=== PATIENT | female | born 1935 | race Caucasian/White ===

== ENCOUNTER → 2019-06-25 | Outpatient (CLI) | payer MEDICARE ==
--- NOTE | 2019-06-25 18:10 | MR ---
EXAMINATION TYPE: MR lumbar spine wo con DATE OF EXAM: 06/25/2019 COMPARISON: None HISTORY: Left foot drop x 2 mos CONTRAST: 0 mL intravenous Gadavist. TECHNIQUE: Multiplanar, multisequence images of the lumbar spine were acquired. FINDINGS: L5-S1: There is a moderately large central disc herniation with mild anterior thecal sac compression. No displacement of the exiting nerve roots is evident. No AP spinal canal stenosis is present. There is loss of disc height of this disc level. Facet hypertrophy has mild left posterior lateral thecal sac compression. There is moderate right and mild left foraminal narrowing. L4-L5: There is a left paracentral disc herniation with [id number] anterior thecal sac compress ion. There is loss of disc height of this level. Facet hypertrophy and ligamentum flavum laxity has p osterior lateral thecal sac compression. Some lateral canal stenosis is present. No AP spinal canal s tenosis is present. Moderate right and moderate to severe left foraminal stenosis is present. L3-L4: There is a grade 1 spondylolisthesis of L3 anteriorly on L4. Disc uncovering is present. This is moderate intrathecal sac flattening. Facet hypertrophy and ligamentum flavum laxity has significan t posterior lateral thecal sac compression. Lateral canal stenosis is present. No AP spinal canal mima nosis is present. Mild bilateral foraminal narrowing is present L2-L3: No focal disc herniation or significant disc bulge is evident. No spinal canal stenosis or pritesh ral foraminal stenosis present. Facet hypertrophy has ligamentum flavum laxity with posterior lateral thecal sac compression. Mild posterior lateral thecal sac compression is present. L1-L2: No significant disc bulge or disc herniation. No spinal canal stenosis. No foraminal stenosi s. T12-L1: No significant disc bulge or disc herniation. No spinal canal stenosis. No foraminal stenos is. Cord terminates at the L1 level. IMPRESSION: 1. Facet hypertrophy and ligamentum flavum laxity contributing to lateral canal stenosis present L4-5 and L3-4. 2. Foraminal stenosis is present L3-4 through L5-S1 discussed above. 3. Left paracentral disc bulge at L4-5 with moderate intrathecal sac compression.
== END | disposition home or self-care (01) ==
LOC: RADMRIMAIN 15:51
PROVIDERS: ATTEND Internal Medicine
DX: M48.061 Spinal stenosis, lumbar region without neurogenic claudication (principal); M48.07 Spinal stenosis, lumbosacral region; M51.26 Other intervertebral disc displacement, lumbar region; M46.96 Unspecified inflammatory spondylopathy, lumbar region; M53.86 Other specified dorsopathies, lumbar region
CPT/HCPCS: 72148

== ENCOUNTER 2020-12-23 11:12 | Inpatient (IN) | payer MEDICARE ==
--- NOTE | 2020-12-23 11:30 | ED ---
General Adult HPI - General Source: patient, RN notes reviewed Mode of arrival: ambulatory Limitations: no limitations <Ed Vivas - Last Filed: 12/23/20 11:28> <Jessenia Norris - Last Filed: 12/23/20 16:58> - General Stated complaint: CHLOÉ Time Seen by Provider: 12/23/20 11:28 - History of Present Illness Initial comments: 85-year-old female presents emergency Department from outpatient urgent care for cough congestion. Patient has been getting worse over the last 3 weeks with cough congestion. Patient does have underlying COPD supposed be on oxygen. Patient's daughter states that she looks about her usual self. Patient denies any chest pain no reported fevers. Patient's cough is congested, wet sounding, no history of CHF. (Ed Vivas) Ed Vivas PA-c saw patient for advance triage purposes. Agree with documented HPI. In addition patient reports sputum that ranges in color from clear to green. Reports substernal chest pain, denies radiation to her back. Does report increased shortness of breath especially with activity. Denies any lower extremity swelling or pain. No history of smoking. Wears 2L oxygen at home for history of COPD and pulmonary fibrosis. Did receive both Covid vaccines and influenza vaccine. (Jessenia Norris) - Related Data Home Medications Medication Instructions Recorded Confirmed Aspirin 81 mg PO W/SUPPER 12/23/20 12/23/20 Atorvastatin [Lipitor] 20 mg PO W/SUPPER 12/23/20 12/23/20 Cholecalciferol [Vitamin D3 (25 25 mcg PO W/SUPPER 12/23/20 12/23/20 Mcg = 1000 Iu)] Multivit with Calcium,Iron,Min 1 tab PO W/SUPPER 12/23/20 12/23/20 [Women's Multivitamin] Verapamil HCl [Verapamil ER] 120 mg PO W/SUPPER 12/23/20 12/23/20 lisinopriL [Zestril] 20 mg PO W/SUPPER 12/23/20 12/23/20 Allergies Allergy/AdvReac Type Severity Reaction Status Date / Time codeine Allergy Unknown Verified 12/23/20 12:29 Review of Systems ROS Other: All systems not noted in ROS Statement are negative. <Ed Vivas - Last Filed: 12/23/20 11:28> ROS Other: All systems not noted in ROS Statement are negative. <Jessenia Norris M - Last Filed: 12/23/20 16:58> ROS Statement: Those systems with pertinent positive or pertinent negative responses have been documented in the HPI. Past Medical History Past Medical History: COPD, Hyperlipidemia, Hypertension Additional Past Medical History / Comment(s): pulmonary fibrosis History of Any Multi-Drug Resistant Organisms: None Reported Past Surgical History: Bowel Resection, Section, Cholecystectomy Past Psychological History: No Psychological Hx Reported Smoking Status: Never smoker Past Alcohol Use History: None Reported Past Drug Use History: None Reported <Ed Vivas Chato - Last Filed: 12/23/20 11:28> General Exam Limitations: no limitations <Ed Vivas Chato - Last Filed: 12/23/20 11:28> General appearance: alert, in no apparent distress Eye exam: Present: normal appearance, PERRL, EOMI. Absent: scleral icterus, conjunctival injection, periorbital swelling ENT exam: Present: normal exam, normal oropharynx, mucous membranes moist Respiratory exam: Present: other (Crackles throughout the posterior lung wild). Absent: normal lung sounds bilaterally, respiratory distress, wheezes, rales, rhonchi, stridor Cardiovascular Exam: Present: regular rate, normal rhythm, normal heart sounds. Absent: systolic murmur, diastolic murmur, rubs, gallop, clicks GI/Abdominal exam: Present: soft, normal bowel sounds. Absent: distended, te nderness, guarding, rebound, rigid Neurological exam: Present: alert, oriented X3, CN II-XII intact Psychiatric exam: Present: normal affect, normal mood Skin exam: Present: warm, dry, intact, normal color. Absent: rash <Jesseina Norris M - Last Filed: 12/23/20 16:58> Course Vital Signs 12/23/20 11:24 Temperature 98.4 F Pulse Rate 72 Respiratory 22 Rate Blood Pressure 165/71 O2 Sat by Pulse 93 L Oximetry EKG Findings - EKG Comments: EKG Findings:: EKG obtained at 1458 shows sinus rhythm with PACs, ventricular rate is 74, VT interval 176, QRS duration 78, QT 388, QTC 430. No evidence of ST elevation or depression. <Jessenia Norris M - Last Filed: 12/23/20 16:58> Medical Decision Making - Lab Data Result diagrams: 12/23/20 12:47 12/23/20 12:47 - Radiology Data Radiology results: report reviewed, image reviewed <Jessenia Norris - Last Filed: 12/23/20 16:58> - Medical Decision Making 85 year-old female patient presents with 3 week history of productive cough and increasing shortness of breath. Physical examination did reveal crackles in the posterior lung wild. She was 92% on room air upon arrival. She is oxygen dependent at 2 L at home. Has history of COPD and pulmonary fibrosis. Chest x- ray did show evidence for bilateral infiltrates with possible cavitary lesion. Did do CT chest with contrast which showed multiple pulmonary nodules concerning for atypical pneumonia, TB, or neoplasm. She was started on Zosyn and vancomycin. Blood cultures obtained. Consults to pulmonology infectious disease. I did discuss all findings and results with the patient. She'll be admitted for further evaluation and monitoring. She verbalizes understanding and agrees with this plan. Case discussed with my attending Dr. Graham. (Jessenia Norris) - Lab Data Lab Results 12/23/20 12/23/20 12/23/20 Range/Units 12:47 12:47 12:47 WBC 20.2 H (3.8-10.6) k/uL RBC 5.19 (3.80-5.40) m/uL Hgb 15.2 (11.4-16.0) gm/dL Hct 46.1 H (34.0-46.0) % MCV 89.0 (80.0-100.0) fL MCH 29.3 (25.0-35.0) pg MCHC 32.9 (31.0-37.0) g/dL RDW 14.2 (11.5-15.5) % Plt Count 473 H (150-450) k/uL MPV 8.0 Neutrophils % 85 % Lymphocytes % 7 % Monocytes % 6 % Eosinophils % 1 % Basophils % 1 % Neutrophils # 17.1 H (1.3-7.7) k/uL Lymphocytes # 1.4 (1.0-4.8) k/uL Monocytes # 1.2 H (0-1.0) k/uL Eosinophils # 0.2 (0-0.7) k/uL Basophils # 0.1 (0-0.2) k/uL PT 11.1 (9.0-12.0) sec INR 1.0 (<1.2) APTT 24.5 (22.0-30.0) sec Sodium 138 (137-145) mmol/L Potassium 4.3 (3.5-5.1) mmol/L Chloride 96 L (98-107) mmol/L Carbon Dioxide 36 H (22-30) mmol/L Anion Gap 6 mmol/L BUN 14 (7-17) mg/dL Creatinine 0.50 L (0.52-1.04) mg/dL Est GFR (CKD-EPI)AfAm >90 (>60 ml/min/1.73 sqM) Est GFR (CKD-EPI)NonAf 88 (>60 ml/min/1.73 sqM) Glucose 98 (74-99) mg/dL Plasma Lactic Acid Stevenson (0.7-2.0) mmol/L Calcium 10.4 H (8.4-10.2) mg/dL Total Bilirubin 1.1 (0.2-1.3) mg/dL AST 34 (14-36) U/L ALT 18 (4-34) U/L Alkaline Phosphatase 110 (38-126) U/L Troponin I (0.000-0.034) ng/mL Total Protein 7.6 (6.3-8.2) g/dL Albumin 4.3 (3.5-5.0) g/dL Coronavirus (PCR) (Not Detectd) 12/23/20 12/23/20 12/23/20 Range/Units 12:47 12:47 14:50 WBC (3.8-10.6) k/uL RBC (3.80-5.40) m/uL Hgb (11.4-16.0) gm/dL Hct (34.0-46.0) % MCV (80.0-100.0) fL MCH (25.0-35.0) pg MCHC (31.0-37.0) g/dL RDW (11.5-15.5) % Plt Count (150-450) k/uL MPV Neutrophils % % Lymphocytes % % Monocytes % % Eosinophils % % Basophils % % Neutrophils # (1.3-7.7) k/uL Lymphocytes # (1.0-4.8) k/uL Monocytes # (0-1.0) k/uL Eosinophils # (0-0.7) k/uL Basophils # (0-0.2) k/uL PT (9.0-12.0) sec INR (<1.2) APTT (22.0-30.0) sec Sodium (137-145) mmol/L Potassium (3.5-5.1) mmol/L Chloride (98-107) mmol/L Carbon Dioxide (22-30) mmol/L Anion Gap mmol/L BUN (7-17) mg/dL Creatinine (0.52-1.04) mg/dL Est GFR (CKD-EPI)AfAm (>60 ml/min/1.73 sqM) Est GFR (CKD-EPI)NonAf (>60 ml/min/1.73 sqM) Glucose (74-99) mg/dL Plasma Lactic Acid Stevenson 1.6 (0.7-2.0) mmol/L Calcium (8.4-10.2) mg/dL Total Bilirubin (0.2-1.3) mg/dL AST (14-36) U/L ALT (4-34) U/L Alkaline Phosphatase (38-126) U/L Troponin I 0.020 (0.000-0.034) ng/mL Total Protein (6.3-8.2) g/dL Albumin (3.5-5.0) g/dL Coronavirus (PCR) Not Detected (Not Detectd) - Radiology Data Chest x-ray showed patchy bilateral airspace opacities are most suggestive of an infectious versus inflammatory process, such as pneumonia. There is a thick- walled cavity at the right suprahilar region measuring 2.17 years. Abscess or neoplasm is not excluded. Tiny right pleural effusion. COPD. CT chest with contrast was obtained. Report was reviewed in its entirety. Impression by Dr. Arreaga shows centrilobular lung nodules can be seen in such entities such as tuberculosis, nontobacco's is mycobacterial infection, Asperg illus Daniel pneumonia, differential includes cephalic granulomatosis with polyangiitis, bronchoalveolar carcinoma, metastatic disease not excluded. (Jessenia Norris) Disposition <Ed Vivas - Last Filed: 12/23/20 11:28> Decision to Admit Reason: Admit from EC Decision Date: 12/23/20 Decision Time: 15:53 <Jessenia Norris - Last Filed: 12/23/20 16:58> Clinical Impression: Atypical pneumonia, Lung mass Disposition: ADMITTED IP TO THIS HOSP Condition: Serious Referrals: Faviola Kwong MD [Primary Care Provider] - 1-2 days
--- NOTE | 2020-12-23 11:56 | XR ---
EXAMINATION TYPE: XR chest 2V DATE OF EXAM: 12/23/2020 COMPARISON: NONE HISTORY: 85-year-old female with productive cough, congestion, history of COPD TECHNIQUE: Frontal and lateral views of the chest are obtained. FINDINGS: Heart size is within normal limits. Atherosclerotic aortic knob. There are patchy airspace opacities throughout the lungs, predominantly at the mid to lower lungs. There is a 2.1 cm thick-wal led nodular cavity at the right upper lobe. A developing abscess or mass is not excluded. A CT of the chest may be helpful for further evaluation. COPD. Tiny right pleural effusion. No pneumothorax. Deg enerative changes of the thoracic spine. IMPRESSION: 1. Patchy bilateral airspace opacities are most suggestive of infectious/inflammatory process, such a s pneumonia. There is a thick-walled cavity at the right suprahilar region measuring 2.1 cm. An absce ss or neoplasm is not excluded. A CT of the chest would be helpful for further evaluation. 2. Tiny right pleural effusion. 3. COPD.
[2020-12-23] MEDS ORDERED: PIPERACILLIN-TAZOBACTAM 3.375 GM in SODIUM CHLORIDE 0.9% 100 ML IVPB STA (12:18)
[2020-12-23] MEDS ORDERED: RX INFO: IV CONTRAST WAS GIVEN 1 EACH MISC MISCELLANE PRN (12:20)
[2020-12-23 13:06] LABS: Basophils # (A) 0.1 k/uL (0-0.2); Basophils % (A) 1 %; Eosinophils # (A) 0.2 k/uL (0-0.7); Eosinophils % (A) 1 %; HCT 46.1 % (34.0-46.0); HGB 15.2 gm/dL (11.4-16.0); Lymphocytes # (A) 1.4 k/uL (1.0-4.8); Lymphocytes % (A) 7 %; MCH 29.3 pg (25.0-35.0); MCHC 32.9 g/dL (31.0-37.0); Monocytes # (A) 1.2 k/uL (0-1.0); Monocytes % (A) 6 %; Neutrophils # (A) 17.1 k/uL (1.3-7.7); Neutrophils % (A) 85 %; Platelet Count 473 k/uL (150-450); RBC 5.19 m/uL (3.80-5.40); RDW 14.2 % (11.5-15.5); WBC 20.2 k/uL (3.8-10.6)
[2020-12-23 13:21] LABS: ALT 18 U/L (4-34); AST 34 U/L (14-36); African American GFR (CKD) >90 (>60 ml/min/1.73 sqM); Albumin 4.3 g/dL (3.5-5.0); Alkaline Phosphatase 110 U/L (38-126); Anion Gap 6 mmol/L; Blood Urea Nitrogen 14 mg/dL (7-17); Calcium 10.4 mg/dL (8.4-10.2); Carbon Dioxide 36 mmol/L (22-30); Chloride 96 mmol/L (98-107); Glucose 98 mg/dL (74-99); Non-African American GFR(CKD) 88 (>60 ml/min/1.73 sqM); Potassium 4.3 mmol/L (3.5-5.1); Sodium 138 mmol/L (137-145); Total Bilirubin 1.1 mg/dL (0.2-1.3); Total Protein 7.6 g/dL (6.3-8.2)
[2020-12-23 13:30] LABS: Partial Thromboplastin Time 24.5 sec (22.0-30.0); Prothrombin Time 11.1 sec (9.0-12.0)
--- NOTE | 2020-12-23 14:39 | CT ---
EXAMINATION TYPE: CT chest w con DATE OF EXAM: 12/23/2020 COMPARISON: Chest x-ray 12/23/2020 HISTORY: abnormal chest xray CT DLP: 158 mGycm Automated exposure control for dose reduction was used. CONTRAST: CT scan of the chest is performed with IV Contrast, patient injected with 100 mL of Isovue 300. FINDINGS: LUNGS: There are cavitary soft tissue masses in the right lower lobe, superior segment lesion measure s 2.2 cm, slightly more inferiorly there is a focus measuring 1.7 cm, suggestion of bronchiectasis co ursing to these nodules, smaller nodules are present in the right upper lobe, axial image #11, left u pper lobe, axial image #13 and 12. Scattered areas of bronchiectasis are present in the upper lobes, right middle lobe and lingula. There is no pleural or pericardial effusion. There is some consolidati on in the right middle lobe and lingula, scattered areas of nodularity are present bilaterally within the lungs which is subcentimeter in size. MEDIASTINUM: Aorticopulmonary window node, prevascular nodes are enlarged . Borderline hilar adenopat hy present on the right. AORTA: Ascending aorta at the upper limit of normal measuring 3.9 cm. OTHER: Spleen so some associated calcification at the superior margin, there are some scattered calc ifications present, a cleaved appearance of the spleen is present, there may been remote trauma, saurav elate. IMPRESSION: Centrilobular lung nodules can be seen in such entities as tuberculosis and nontuberculo us mycobacterial infection, Aspergillus bronchopneumonia, Differential includes is a is in cephalic g ranulomatosis with polyangiitis, bronchoalveolar carcinoma, metastatic disease not excluded, consider pulmonary consult
[2020-12-23] MEDS: SODIUM CHLORIDE 0.9% 500 ML 500 ML IV SCH ×2 (14:49→17:59)
[2020-12-23] MEDS ORDERED: VANCOMYCIN IV PER PHARMACY 1 EACH MISC MISCELLANE PRN (15:32)
[2020-12-23] MEDS ORDERED: NALOXONE 0.4 MG/ML 1 ML VIAL IV PRN (15:44)
[2020-12-23] MEDS ORDERED: VANCOMYCIN 1,000 MG in SODIUM CHLORIDE 0.9% 250 ML IVPB ONE (16:30)
[2020-12-23] MEDS ORDERED: IPRATROPIUM-ALBUTEROL 3 ML NEB INHALATION STA (16:47)
[2020-12-23] MEDS ORDERED: ACETAMINOPHEN TAB 325 MG TAB PO PRN (17:24)
[2020-12-23] MEDS ORDERED: bisacodyL 5 MG TABLET.DR PO PRN (17:24)
[2020-12-23] MEDS ORDERED: MELATONIN 3 MG TABLET PO PRN (17:24)
--- NOTE | 2020-12-23 17:31 | P.HPIM ---
History of Present Illness H&P Date: 12/23/20 Chief Complaint: cough Patient is an 85-year-old female with pulmonary fibrosis and chronic hypoxic respiratory failure on 2 L nasal cannula, hypertension, and dyslipidemia who presented to the ER due to 3 weeks of cough and progressive shortness of breath. She was seen by the nurse practitioner at her primary care office who sent her to the hospital. In the ER she underwent an extensive evaluation. On arrival her vital signs were within normal limits. Initial chest x-ray showed possible infectious or inflammatory process with abscess or neoplasm not excluded. She subsequently underwent a CTA of the chest which showed central lobular nodules in such entities as tuberculosis, not tuberculosis Mycobacterium, Aspergillus, granulomatous polyangiitis, bronchial alveolar carcinoma or metastatic disease. She was started on vancomycin and Zosyn. Arrangements were made for admission. Patient seen and examined at bedside with daughter present. She reports that fo r the last 3 weeks she has had a cough which initially was productive of yellow- green sputum then became clear and it is now productive of green sputum. She has had progressive shortness of breath which is much worse than her baseline. She also reports over all generalized malaise and fatigue. For the last few days she has had decreased appetite. She denies any fevers or chills. She has had no recent travel. She denies any history of prior tuberculosis infection. She has never been incarcerated. She was diagnosed with pulmonary fibrosis approximately one year ago after high- resolution CT. 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 She has continued using her oxygen 24/7 as well as a nebulizer. She does not require any assistive devices. Pertinent positives and negatives as discussed in HPI, a complete review of systems was performed and all other systems are negative. General: Ill-appearing, no distress, appears at stated age Derm: warm, dry Head: atraumatic, normocephalic, symmetric Eyes: EOMI, no lid lag, anicteric sclera, pupils equal round reactive to light ENT: Nose and ears atraumatic, + thrush, no pharyngeal erythema Neck: No thyromegaly, no cervical lymphadenopathy, trachea midline, supple Mouth: no lip lesion, mucus membranes moist Cardiovascular: S1S2 reg, no murmur, positive posterior tibial pulse bilateral, no edema, capillary refill less than 2 seconds Lungs: Velcro crackles bilateral bilateral, no ronchi, no rales, no wheeze, no accessory muscle use Abdominal: soft, nontender to palpation, no guarding, no appreciable organomegaly, normal bowel sounds Ext: no gross muscle atrophy, muscle strength muscle strength 5 out of 5 in all 4 extremities, no contractures Neuro: CN II-XI grossly intact, light touch intact all 4 extremities, finger to nose within normal limits, Psych: Alert, oriented, appropriate affect Assessment/plan: Pneumonia, concerns for mycobacterial versus neoplasm Chronic hypoxic respiratory failure -Suspicious for Mycobacterium avium intracellulare with history of pulmonary fibrosis, less likely metastatic disease with history of cholangiocarcinoma requiring bowel resection at age 58, and less likely tuberculosis -Airborn precautions -AFB, QuantiFERON Gold -Vancomycin, Zosyn -ID and pulmonary consultations - check procalcitonin - echo - await blood culture Pulmonary fibrosis without exacerbation -Resume home budesonide -When necessary albuterol Thrush -Nystatin swish and swallow Hypertension, accelerated on arrival -Likely secondary to stress -Resume verapamil, lisinopril Dyslipidemia -Statin The patient is admitted with an anticipated greater than 2 midnight stay for evaluation of pneumonia. Surrogate decision-maker: Daughter CODE STATUS: DO NOT RESUSCITATE DVT prophylaxis: Lovenox Discussed with: Patient, nursing, ED physician, daughter Anticipated discharge date: 3-[address]: Home with home health A total of 65 minutes was spent on the care of this complex patient more than 50% of the time was spent in counseling and care coordination. Past Medical History Past Medical History: COPD, Hyperlipidemia, Hypertension Additional Past Medical History / Comment(s): pulmonary fibrosis History of Any Multi-Drug Resistant Organisms: None Reported Past Surgical History: Bowel Resection, Section, Cholecystectomy Past Psychological History: No Psychological Hx Reported Smoking Status: Never smoker Past Alcohol Use History: None Reported Past Drug Use History: None Reported Medications and Allergies Home Medications Medication Instructions Recorded Confirmed Type Aspirin 81 mg PO W/SUPPER 12/23/20 12/23/20 History Atorvastatin [Lipitor] 20 mg PO W/SUPPER 12/23/20 12/23/20 History Cholecalciferol [Vitamin D3 (25 25 mcg PO W/SUPPER 12/23/20 12/23/20 History Mcg = 1000 Iu)] Multivit with Calcium,Iron,Min 1 tab PO W/SUPPER 12/23/20 12/23/20 History [Women's Multivitamin] Verapamil HCl [Verapamil ER] 120 mg PO W/SUPPER 12/23/20 12/23/20 History lisinopriL [Zestril] 20 mg PO W/SUPPER 12/23/20 12/23/20 History Allergies Allergy/AdvReac Type Severity Reaction Status Date / Time codeine Allergy Unknown Verified 12/23/20 12:29 Physical Exam Osteopathic Statement: *. No significant issues noted on an osteopathic structural exam other than those noted in the History and Physical/Consult. Vitals: Vital Signs Temp Pulse Resp BP Pulse Ox 12/23/20 11:24 98.4 F 72 22 165/71 93 L Intake and Output 12/23/20 12/23/20 12/23/20 06:59 14:59 22:59 Other: Weight 46.266 kg Results CBC & Chem 7: 12/23/20 12:47 12/23/20 12:47 Labs: Abnormal Lab Results - Last 24 Hours (Table) 12/23/20 12/23/20 Range/Units 12:47 12:47 WBC 20.2 H (3.8-10.6) k/uL Hct 46.1 H (34.0-46.0) % Plt Count 473 H (150-450) k/uL Neutrophils # 17.1 H (1.3-7.7) k/uL Monocytes # 1.2 H (0-1.0) k/uL Chloride 96 L (98-107) mmol/L Carbon Dioxide 36 H (22-30) mmol/L Creatinine 0.50 L (0.52-1.04) mg/dL Calcium 10.4 H (8.4-10.2) mg/dL
[2020-12-23] MEDS: lisinopriL 20 MG TAB PO SCH (17:58)
[2020-12-23] MEDS: CHOLECALCIFEROL 25 MCG (1000 IU) TABLET PO SCH (17:58)
[2020-12-23] MEDS: ATORVASTATIN 20 MG TAB PO SCH (17:58)
[2020-12-23] MEDS: SODIUM CHLORIDE 0.9% 1,000 ML IV SCH (17:59)
[2020-12-23] MEDS: VERAPAMIL SR 120 MG TABLET.ER PO SCH (18:02)
[2020-12-23] MEDS: NYSTATIN 100,000 UNIT/ML SUSP 500,000 UNIT/5 ML CUP PO SCH (18:02)
[2020-12-23] MEDS ORDERED: PIPERACILLIN-TAZOBACTAM 3.375 GM in SODIUM CHLORIDE 0.9% 100 ML IVPB SCH (20:00)
[2020-12-23] MEDS: IPRATROPIUM-ALBUTEROL 3 ML NEB INHALATION SCH (21:04)
[2020-12-23] MEDS: MULTIVITAMINS, THERA 1 EACH TAB PO SCH (23:04)
[2020-12-24] MEDS: IPRATROPIUM-ALBUTEROL 3 ML NEB INHALATION SCH ×6 (00:16→20:13)
[2020-12-24] MEDS ORDERED: VANCOMYCIN 750 MG in SODIUM CHLORIDE 0.9% 250 ML IVPB SCH (06:00)
[2020-12-24 06:40] LABS: ALT 15 U/L (4-34); AST 29 U/L (14-36); African American GFR (CKD) >90 (>60 ml/min/1.73 sqM); Alkaline Phosphatase 81 U/L (38-126); Anion Gap 3 mmol/L; Blood Urea Nitrogen 11 mg/dL (7-17); Calcium 8.9 mg/dL (8.4-10.2); Carbon Dioxide 34 mmol/L (22-30); Chloride 101 mmol/L (98-107); Globulin 2.9 g/dL; Glucose 91 mg/dL (74-99); Magnesium 1.7 mg/dL (1.6-2.3); Non-African American GFR(CKD) 86 (>60 ml/min/1.73 sqM); Potassium 3.9 mmol/L (3.5-5.1); Sodium 138 mmol/L (137-145); Total Bilirubin 0.9 mg/dL (0.2-1.3); Total Protein 5.9 g/dL (6.3-8.2)
[2020-12-24] MEDS: NYSTATIN 100,000 UNIT/ML SUSP 500,000 UNIT/5 ML CUP PO SCH ×4 (08:54→22:24)
[2020-12-24] MEDS: PIPERACILLIN-TAZOBACTAM 3.375 GM in SODIUM CHLORIDE 0.9% 100 ML IVPB SCH ×2 (08:55→18:00)
[2020-12-24 09:21] LABS: HCT 41.8 % (37.2-46.3); MCH 28.9 pg (27.0-32.0); MCHC 31.1 g/dL (32.0-37.0); MCV 92.9 fL (80.0-97.0); Mean Platelet Volume 10.8 fL (9.5-12.2); Platelet Count 449 X 10*3/uL (140-440); RDW 14.6 % (11.5-14.5); WBC 17.31 X 10*3/uL (4.50-10.00)
--- NOTE | 2020-12-24 12:41 | P.CNPUL ---
History of Present Illness Consult date: 12/24/20 Requesting physician: Tara Benitez Reason for consult: abnormal CXR/CT Chief complaint: Shortness of breath, cough, congestion History of present illness: This is a pleasant 85-year-old female patient who follows with Dr. Kwong as her primary care provider. She has a history of hypertension, hyperlipidemia, vitamin D deficiency, pulmonary fibrosis and is on home oxygen. She is a [employer] nonsmoker. She presented to the emergency room yesterday with complaints of increasing shortness of breath cough and congestion. She was referred there from an outpatient urgent care center. She has had a productive sputum of yellowish green phlegm. Occasional blood-tinged. No fever or chills. She states she had lost about 30 pounds last year. Weight is currently staying the same. Chest x-ray revealed patchy bilateral airspace opacities. There is a thick walled cavity in the right suprahilar region measuring 2.1 cm. Abscess or neoplasm not excluded. Tiny right pleural effusion. Computed tomography scan of the chest revealed centrilobular lung nodules can be seen in such entities as tuberculosis and nontender tuberculosis mycobacterial infection, Aspergillus, bronchopneumonia, granulomatosis with polyangiitis, bronchioloalveolar carcinoma. White count 17.3. Hemoglobin 13.0. Platelets 449. Sodium 138. Potassium 3.9. Bicarb 34. Creatinine 0.54. Glucose 91. Pro-calcitonin 0.09. [place] virus not detected. She is seen today in consultation on [place] [facility] [place] currently sitting up in bed. Awake and alert in no acute distress. Maintaining O2 saturation in the 90s on 2 L/m per nasal cannula. She does have a loose congested cough. She's been afebrile. Hemodynamically stable. She's been initiated on bronchodilators, vancomycin and Zosyn. 0.9 normal saline at 75 ML's per hour. Review of Systems REVIEW OF SYSTEMS: CONSTITUTIONAL: Denies any recent significant weight loss or weight gain. EYES: Denies change in vision. EARS, NOSE, MOUTH, THROAT: Denies headaches, denies sore throat. CARDIOVASCULAR: Denies chest pain, palpitations or syncopal episodes. RESPIRATORY: Positive for shortness of breath, cough, congestion, scant hemoptysis. GASTROINTESTINAL: Denies change in appetite, denies abdominal pain GENITOURINARY: Denies hematuria, denies infections. MUSKULOSKELETAL: Denies pain, denies swelling. INTEGUMENTARY: Denies rash, denies eczema. NEUROLOGICAL: Denies recent memory loss, no recent seizure activity. PSYCHIATRIC: Denies anxiety, denies depression. HEMATOLOGIC/LYMPHATIC: Denies anemia, denies enlarged lymph nodes. Past Medical History Past Medical History: COPD, Hyperlipidemia, Hypertension Additional Past Medical History / Comment(s): pulmonary fibrosis History of Any Multi-Drug Resistant Organisms: None Reported Past Surgical History: Bowel Resection, Section, Cholecystectomy Past Psychological History: No Psychological Hx Reported Smoking Status: Never smoker Past Alcohol Use History: None Reported Past Drug Use History: None Reported Medications and Allergies Home Medications Medication Instructions Recorded Confirmed Type Aspirin 81 mg PO W/SUPPER 12/23/20 12/23/20 History Atorvastatin [Lipitor] 20 mg PO W/SUPPER 12/23/20 12/23/20 History Cholecalciferol [Vitamin D3 (25 25 mcg PO W/SUPPER 12/23/20 12/23/20 History Mcg = 1000 Iu)] Multivit with Calcium,Iron,Min 1 tab PO W/SUPPER 12/23/20 12/23/20 History [Women's Multivitamin] Verapamil HCl [Verapamil ER] 120 mg PO W/SUPPER 12/23/20 12/23/20 History lisinopriL [Zestril] 20 mg PO W/SUPPER 12/23/20 12/23/20 History Allergies Allergy/AdvReac Type Severity Reaction Status Date / Time codeine Allergy Unknown Verified 12/23/20 12:29 Physical Exam Vitals: Vital Signs Temp Pulse Pulse Resp BP BP Pulse Ox 12/24/20 08:08 98.2 F 71 18 158/68 93 L 12/24/20 07:43 70 13 12/24/20 02:30 98.6 F 70 13 170/77 93 L 12/24/20 01:03 98.5 F 65 18 156/79 95 12/23/20 20:51 70 18 145/49 99 12/23/20 18:06 70 18 150/70 98 12/23/20 17:40 68 12/23/20 17:27 68 Intake and Output 12/23/20 12/24/20 12/24/20 22:59 06:59 14:59 Other: # Voids 1 1 Weight 46.266 kg GENERAL EXAM: Alert, very pleasant 85-year-old female patient, on room air, fairly comfortable in no apparent distress. HEAD: Normocephalic. EYES: Normal reaction of pupils, equal size. NOSE: Clear with pink turbinates. THROAT: No erythema or exudates. NECK: No masses, no JVD. CHEST: No chest wall deformity. LUNGS: Equal air entry with crackles in the posterior bases, bilateral rhonchi. CVS: S1 and S2 normal with no audible murmur, regular rhythm. ABDOMEN: No hepatosplenomegaly, normal bowel sounds, no guarding or rigidity. SPINE: No scoliosis or deformity SKIN: No rashes CENTRAL NERVOUS SYSTEM: No focal deficits, tone is normal in all 4 extremities. EXTREMITIES: There is no peripheral edema. No clubbing, no cyanosis. Peripheral pulses are intact. Results - Laboratory Findings CBC and BMP: 12/24/20 05:53 12/24/20 05:53 PT/INR, D-dimer PT 11.1 sec (9.0-12.0) 12/23/20 12:47 INR 1.0 (<1.2) 12/23/20 12:47 Abnormal lab findings: Abnormal Labs 12/23/20 12/23/20 12/24/20 12:47 12:47 05:53 WBC 20.2 H 17.31 H Hct 46.1 H MCHC 31.1 L RDW 14.6 H Plt Count 473 H 449 H Neutrophils # 17.1 H Monocytes # 1.2 H Chloride 96 L Carbon Dioxide 36 H Creatinine 0.50 L Calcium 10.4 H Total Protein Albumin 12/24/20 05:53 WBC Hct MCHC RDW Plt Count Neutrophils # Monocytes # Chloride Carbon Dioxide 34 H Creatinine Calcium Total Protein 5.9 L Albumin 3.0 L - Diagnostic Findings Chest x-ray: image reviewed CT scan - chest: image reviewed Assessment and Plan Assessment: 1 Acute hypoxemic respiratory failure secondary to centrilobular lung nodules with cavitary soft tissue masses bilaterally. Suspect atypical mycobacterial infection versus Aspergillus bronchopneumonia, granulomatosis with polyangiitis, bronchoalveolar carcinoma. Pro-calcitonin 0.09. [place] virus not detected. 2 Leukocytosis secondary to above 3 History of pulmonary fibrosis on home oxygen 4 History of weight loss approximately 30 pounds last year 5 Hypertension 6 Hyperlipidemia 7 Lifelong nonsmoker Plan: The patient was seen and evaluated by Dr. Glasgow Chest x-ray, CAT scan, labs reviewed Continue vancomycin, Zosyn, bronchodilators We'll plan for bronchoscopy with BAL, possible biopsies in the a.m. We will continue to follow and make further recommendations based on her clinical status I, the cosigning physician, performed a history & physical examination of the patient. Lungs sounds with crackles in posterior bases, scattered rhonchi. Maintaining good O2 saturations in the 90s on room air. I discussed the assessment and plan of care with my nurse practitioner, Makayla David. I attest to the above consultation as dictated by her.
--- NOTE | 2020-12-24 15:07 | CONS ---
CONSULTATION DATE OF SERVICE: 12/24/2020. REASON FOR CONSULTATION: Pneumonia. HISTORY OF PRESENT ILLNESS: The patient is an 85-year-old female with a past medical history significant for COPD, pulmonary fibrosis, 2 L home O2, presented to [facility] yesterday morning for evaluation of increasing shortness of breath, cough and congestion that has been getting worse for the last 3 weeks. The patient denies having any URI symptoms. Denies having any high-grade fever or chills. No headache. No chest pain. Main complaint has been shortness of breath on minimal exertion even at rest. The patient also has a cough. Initially productive yellow green sputum. is clear and now has been mostly green sputum. No hemoptysis. No pleuritic chest pain. Also generalized weakness and malaise. With these symptoms, the patient was evaluated by the ER physician. On arrival to the ER, patient was afebrile. No fever recorded subsequently. The patient did have O2 sats 93% on 2 L nasal cannula. Did have a white count of 20,000 with left shift. Creatinine was normal. Liver enzymes are normal. [place] PCR was negative. The patient did have a chest x-ray followed by CT of the chest that was read as centrilobular lung nodules can be seen and TB aspergillus bronchopneumonia. The patient was started on vancomycin and Zosyn and has been admitted to the hospital. Infectious disease was consulted for further management of antibiotic therapy. REVIEW OF SYSTEMS: Positive points have been mentioned in HPI. Rest of systems negative. PAST MEDICAL HISTORY: COPD, hypertension, hyperlipidemia, pulmonary fibrosis. PAST SURGICAL HISTORY: Bowel resection, , cholecystectomy. SOCIAL HISTORY: No history of smoking, drinking or drug use. FAMILY HISTORY: No pertinent findings noticed. ALLERGIES: CODEINE. MEDICATIONS: The patient is currently on Tylenol, DuoNeb, Lipitor, Dulcolax, Zestril, melatonin, vancomycin, Pharmacy to dose, Zosyn, nystatin swish and swallow, Verapamil. PHYSICAL EXAMINATION: Blood pressure 158/68 with pulse 70, temperature 98.2. She is 93% on 2 L nasal cannula. General description is an elderly female lying in bed in no distress. No tachypnea or accessory muscles of respiration use. HEENT: Examination shows no pallor or scleral icterus. Oral mucous membrane is dry. NECK: Trachea central. No thyromegaly. LUNGS unlabored breathing with decreased intensity of breath sounds. No wheeze. HEART: S1, S2. Regular rate and rhythm. ABDOMEN: Soft, no tenderness. No guarding or rigidity. EXTREMITIES are no edema of the feet. SKIN: No rash or mass palpable. NEUROLOGICAL: Patient is awake, alert, oriented times three. Mood and affect normal. LABS: Hemoglobin is 13.5, white count 17.31. BUN of 11, creatinine 0.54. CT report mentioned above. DIAGNOSTIC IMPRESSION AND PLAN: Patient admitted to the hospital with increasing shortness of breath, cough, congestion in this patient who did have evidence of a multiple nodules with concern for possible infection versus noninfectious etiology. PLAN: 1. Waiting for the bronchoscopy and deep cultures. 2. We will check pulmonary tuberculosis. 3. Keep the patient on Zosyn. However discontinue vancomycin to decrease risk of nephrotoxicity. 4. We will follow on clinical condition and culture to further adjust medication if needed. Thank you for this consultation, we will follow this patient along with you. MMODL / IJN: [id number] /
--- NOTE | 2020-12-24 17:30 | P.PN ---
Subjective Progress Note Date: 12/24/20 Principal diagnosis: cough Patient is an 85-year-old female with pulmonary fibrosis and chronic hypoxic respiratory failure on 2 L nasal cannula, hypertension, and dyslipidemia who presented to the ER due to 3 weeks of cough and progressive shortness of breath. She was seen by the nurse practitioner at her primary care office who sent her to the hospital. In the ER she underwent an extensive evaluation. On arrival her vital signs were within normal limits. Initial chest x-ray showed possible infectious or inflammatory process with abscess or neoplasm not excluded. She subsequently underwent a CTA of the chest which showed central lobular nodules in such entities as tuberculosis, not tuberculosis Mycobacterium, Aspergillus, granulomatous polyangiitis, bronchial alveolar carcinoma or metastatic disease. She was started on vancomycin and Zosyn. Arrangements were made for admission. Procalcitonin and COVID negative. She was seen by pulmonary who plans for bronchoscopy. Patient seen and examined at bedside. She denies any improvement in her shortness of breath or cough. She denies any chest pain. She denies any nausea or vomiting. General: non toxic, no distress, appears at stated age Derm: warm, dry Head: atraumatic, normocephalic, symmetric Eyes: EOMI, no lid lag, anicteric sclera Mouth: no lip lesion, mucus membranes moist, + thrush Cardiovascular: S1S2 reg, no murmur, positive posterior tibial pulse bilateral, Lungs: Coarse breath sounds bilateral , no accessory muscle use Abdominal: soft, nontender to palpation, no guarding, no appreciable organomegaly Ext: no gross muscle atrophy, no edema, no contractures Neuro: CN II-XI grossly intact, no focal neuro deficits Psych: Alert, oriented, appropriate affect Central lobular lung nodules concerns, Chronic hypoxic respiratory failure -Suspicious for Mycobacterium avium intracellulare with history of pulmonary fibrosis, less likely metastatic disease with history of cholangiocarcinoma requiring bowel resection at age 58, and less likely tuberculosis - unlikley bacterial wiht procalcitonin 0.09, but conitnue vanco and zosyn until after bronch -Airborn precautions -AFB, QuantiFERON Gold pening -Pulm recs apprecaited: bronch in AM -ID recs appreciated - echo pending - await blood culture Pulmonary fibrosis without exacerbation -Resume home budesonide -When necessary albuterol Thrush -Nystatin swish and swallow Hypertension, accelerated on arrival -Likely secondary to stress -Resume verapamil, lisinopril Dyslipidemia -Statin CODE STATUS: DO NOT RESUSCITATE DVT prophylaxis: Lovenox Discussed with: Patient, nursing, pulmonary Anticipated discharge date: 3-[address]: Home with home health A total of 35 minutes was spent on the care of this complex patient more than 50% of the time was spent in counseling and care coordination. Objective - Vital Signs Vital signs: Vital Signs Temp 98.7 F 12/24/20 14:00 Pulse 78 12/24/20 16:21 Resp 17 12/24/20 14:00 BP 159/69 12/24/20 14:00 Pulse Ox 95 12/24/20 14:00 Intake & Output 12/23/20 12/24/20 12/24/20 18:59 06:59 18:59 Weight 46.266 kg 46.266 kg Other: # Voids 1 1 - Labs CBC & Chem 7: 12/24/20 05:53 12/24/20 05:53 Labs: Abnormal Lab Results - Last 24 Hours (Table) 12/24/20 12/24/20 Range/Units 05:53 05:53 WBC 17.31 H (4.50-10.00) X 10*3/uL MCHC 31.1 L (32.0-37.0) g/dL RDW 14.6 H (11.5-14.5) % Plt Count 449 H (140-440) X 10*3/uL Carbon Dioxide 34 H (22-30) mmol/L Total Protein 5.9 L (6.3-8.2) g/dL Albumin 3.0 L (3.5-5.0) g/dL Microbiology - Last 24 Hours (Table) 12/23/20 12:47 Blood Culture - Preliminary Blood No Growth after 24 hours 12/23/20 12:47 Blood Culture - Preliminary Blood No Growth after 24 hours
[2020-12-24] MEDS: CHOLECALCIFEROL 25 MCG (1000 IU) TABLET PO SCH (18:01)
[2020-12-24] MEDS: lisinopriL 20 MG TAB PO SCH (18:01)
[2020-12-24] MEDS: ATORVASTATIN 20 MG TAB PO SCH (18:01)
[2020-12-24] MEDS: MULTIVITAMINS, THERA 1 EACH TAB PO SCH (18:01)
[2020-12-24] MEDS: VERAPAMIL SR 120 MG TABLET.ER PO SCH (22:03)
[2020-12-24] MEDS: SODIUM CHLORIDE 0.9% 1,000 ML IV SCH ×2 (22:24→22:45)
[2020-12-25] MEDS: PIPERACILLIN-TAZOBACTAM 3.375 GM in SODIUM CHLORIDE 0.9% 100 ML IVPB SCH ×3 (00:20→17:43)
[2020-12-25] MEDS: IPRATROPIUM-ALBUTEROL 3 ML NEB INHALATION SCH ×7 (03:27→20:29)
[2020-12-25] MEDS ORDERED: VANCOMYCIN TROUGH DUE 1 EACH MISC MISCELLANE ONE (05:00)
[2020-12-25 09:06] LABS: HCT 43.5 % (34.0-46.0); HGB 14.3 gm/dL (11.4-16.0); MCH 29.8 pg (25.0-35.0); MCHC 32.9 g/dL (31.0-37.0); MCV 90.7 fL (80.0-100.0); Mean Platelet Volume 7.9; Platelet Count 445 k/uL (150-450); RDW 14.1 % (11.5-15.5); WBC 13.7 k/uL (3.8-10.6)
[2020-12-25 09:25] LABS: African American GFR (CKD) >90 (>60 ml/min/1.73 sqM); Anion Gap 2 mmol/L; Blood Urea Nitrogen 11 mg/dL (7-17); Carbon Dioxide 35 mmol/L (22-30); Chloride 103 mmol/L (98-107); Glucose 98 mg/dL (74-99); Non-African American GFR(CKD) 88 (>60 ml/min/1.73 sqM); Potassium 4.1 mmol/L (3.5-5.1); Sodium 140 mmol/L (137-145)
[2020-12-25 09:28] LABS: T4/T8 Ratio (CD4:CD8) 2.6 (1.0-3.7)
[2020-12-25] MEDS ORDERED: ALBUTEROL NEBULIZED 2.5 MG/3 ML INHALATION PRN (09:31)
[2020-12-25 09:37] LABS: Glucose,Whole Blood 94 mg/dL (75-99)
--- NOTE | 2020-12-25 09:39 | P.PN ---
Subjective Progress Note Date: 12/25/20 Principal diagnosis: cough Patient is an 85-year-old female with pulmonary fibrosis and chronic hypoxic respiratory failure on 2 L nasal cannula, hypertension, and dyslipidemia who presented to the ER due to 3 weeks of cough and progressive shortness of breath. She was seen by the nurse practitioner at her primary care office who sent her to the hospital. In the ER she underwent an extensive evaluation. On arrival her vital signs were within normal limits. Initial chest x-ray showed possible infectious or inflammatory process with abscess or neoplasm not excluded. She subsequently underwent a CTA of the chest which showed central lobular nodules in such entities as tuberculosis, not tuberculosis Mycobacterium, Aspergillus, granulomatous polyangiitis, bronchial alveolar carcinoma or metastatic disease. She was started on vancomycin and Zosyn. Arrangements were made for admission. Procalcitonin and COVID negative. She was seen by pulmonary who plans for bronchoscopy today. Patient seen and examined at bedside. Feeling tried, weak and dry this morning. She is feeling tight and wheezy. She has a headache and feels like she is having a hard time thinking. General: non toxic, no distress, appears at stated age Derm: warm, dry Head: atraumatic, normocephalic, symmetric Eyes: EOMI, no lid lag, anicteric sclera Mouth: no lip lesion, mucus membranes moist, + thrush Cardiovascular: S1S2 reg, no murmur, positive posterior tibial pulse bilateral, Lungs: Coarse breath sounds bilateral , no accessory muscle use Abdominal: soft, nontender to palpation, no guarding, no appreciable organomegaly Ext: no gross muscle atrophy, no edema, no contractures Neuro: CN II-XI grossly intact, no focal neuro deficits Psych: Alert, oriented, appropriate affect Central lobular lung nodules concerns, Chronic hypoxic respiratory failure -Suspicious for Mycobacterium avium intracellulare with history of pulmonary fibrosis, less likely metastatic disease with history of cholangiocarcinoma requiring bowel resection at age 58, and less likely tuberculosis - unlikely bacterial wiht procalcitonin 0.09, but continue vanco and zosyn until after bronch -Airborn precautions -AFB, QuantiFERON Gold pending -Pulm recs appreciated: bronch in AM -ID recs appreciated - echo results pending - Blood cultures negative to date Pulmonary fibrosis without exacerbation - budesonide, duoneb -When necessary albuterol Thrush -Nystatin swish and swallow Hypertension, accelerated on arrival -Likely secondary to stress -Resume verapamil, lisinopril Dyslipidemia -Statin CODE STATUS: DO NOT RESUSCITATE DVT prophylaxis: Lovenox Discussed with: Patient, nursing, pulmonary Anticipated discharge date: 3-[address]: Home with home health A total of 35 minutes was spent on the care of this complex patient more than 50% of the time was spent in counseling and care coordination. Objective - Vital Signs Vital signs: Vital Signs Temp 97.9 F 12/25/20 08:00 Pulse 69 12/25/20 08:00 Resp 16 12/25/20 08:00 BP 168/88 12/25/20 08:00 Pulse Ox 92 L 12/25/20 08:00 Intake & Output 12/24/20 12/25/20 12/25/20 18:59 06:59 18:59 Intake Total 750 Balance 750 Intake: Intake, IV Titration 350 Amount Piperacillin-Tazobactam 3 100 .375 gm In Sodium Chloride 0.9% 100 ml @ 25 mls/hr IVPB Q8H YUAN Rx#: [id number] Sodium Chloride 0.9% 1, 250 000 ml @ 75 mls/hr IV . [id number] YUAN Rx#:[id number] Oral 400 Other: # Voids 4 - Labs CBC & Chem 7: 12/25/20 08:51 12/25/20 08:51 Labs: Abnormal Lab Results - Last 24 Hours (Table) 12/25/20 12/25/20 Range/Units 08:51 08:51 WBC 13.7 H (3.8-10.6) k/uL Carbon Dioxide 35 H (22-30) mmol/L Creatinine 0.50 L (0.52-1.04) mg/dL Microbiology - Last 24 Hours (Table) 12/23/20 12:47 Blood Culture - Preliminary Blood No Growth after 24 hours 12/23/20 12:47 Blood Culture - Preliminary Blood No Growth after 24 hours
[2020-12-25] MEDS: NYSTATIN 100,000 UNIT/ML SUSP 500,000 UNIT/5 ML CUP PO SCH ×4 (09:51→22:23)
[2020-12-25] MEDS: SODIUM CHLORIDE 0.9% 1,000 ML IV SCH (09:52)
--- NOTE | 2020-12-25 11:02 | ECHOF ---
Referral Reason:dyspnea MEASUREMENTS -------- HEIGHT: 152.4 cm WEIGHT: 46.3 kg BP: 170/77 RVIDd: 3.3 cm (< 3.3) IVSd: 1.5 cm (0.6 - 1.1) LVIDd: 3.0 cm (3.9 - 5.3) LVPWd: 1.6 cm (0.6 - 1.1) IVSs: 1.8 cm LVIDs: 1.8 cm LVPWs: 1.8 cm LAESV Index (A-L): 26.18 ml/m Ao Diam: 3.2 cm (2.0 - 3.7) AV Cusp: 2.1 cm (1.5 - 2.6) MV EXCURSION: 12.360 mm (> 18.000) MV EF SLOPE: 44 mm/s (70 - 150) EPSS: 0.3 cm MV E Curtis: 1.12 m/s MV DecT: 231 ms MV A Curtis: 1.25 m/s MV E/A Ratio: 0.90 AR PHT: 532 ms RAP: 5.00 mmHg RVSP: 42.09 mmHg FINDINGS -------- Sinus rhythm. This was a technically adequate study. The left ventricular size is normal. There is moderate concentric left ventricular hypertrophy. O verall left ventricular systolic function is normal with, an EF between 55 - 60 %. The right ventricle is mildly enlarged. Normal LA size by volume 22+/-6 ml/m2. The right atrium is mildly enlarged. Interatrial and interventricular septum intact. The aortic valve is trileaflet and appears structurally normal. Trace to mild aortic regurgitation. There is no evidence of aortic stenosis. There is trace mitral regurgitation. [id number] tricuspid regurgitation present. There is mild to moderate pulmonary hypertension. The right ventricular systolic pressure, as measured by Doppler, is 42.09mmHg. There is no pulmonic regurgitation present. The aortic root size is normal. Normal inferior vena cava with normal inspiratory collapse consistent with estimated right atrial pre ssure of 5 mmHg. There is no pericardial effusion. CONCLUSIONS -------- 1. The left ventricular size is normal. 2. There is moderate concentric left ventricular hypertrophy. 3. Overall left ventricular systolic function is normal with, an EF between 55 - 60 %. 4. The right ventricle is mildly enlarged. 5. The right atrium is mildly enlarged. 6. Trace to mild aortic regurgitation. 7. There is trace mitral regurgitation. 8. [id number] tricuspid regurgitation present. 9. There is mild to moderate pulmonary hypertension. 10. The right ventricular systolic pressure, as measured by Doppler, is 42.09mmHg. TELE TECH: Christy Luis RDCS
--- NOTE | 2020-12-25 11:36 | P.PN ---
Subjective Progress Note Date: 12/25/20 Principal diagnosis: Acute on chronic hypoxic respiratory failure secondary to central lobular lung nodules with cavitary soft tissue masses bilaterally This is a pleasant 85-year-old female patient who follows with Dr. Kwong as her primary care provider. She has a history of hypertension, hyperlipidemia, vitamin D deficiency, pulmonary fibrosis and is on home oxygen. She is a lifelong nonsmoker. She presented to the emergency room yesterday with complaints of increasing shortness of breath cough and congestion. She was referred there from an outpatient urgent care center. She has had a productive sputum of yellowish green phlegm. Occasional blood-tinged. No fever or chills. She states she had lost about 30 pounds last year. Weight is currently staying the same. Chest x-ray revealed patchy bilateral airspace opacities. There is a thick walled cavity in the right suprahilar region measuring 2.1 cm. Abscess or neoplasm not excluded. Tiny right pleural effusion. Computed tomography scan of the chest revealed centrilobular lung nodules can be seen in such entities as tuberculosis and nontender tuberculosis mycobacterial infection, Aspergillus, br onchopneumonia, granulomatosis with polyangiitis, bronchioloalveolar carcinoma. White count 17.3. Hemoglobin 13.0. Platelets 449. Sodium 138. Potassium 3.9. Bicarb 34. Creatinine 0.54. Glucose 91. Pro-calcitonin 0.09. [place] virus not detected. She is seen today in consultation [place] [facility] [place] currently sitting up in bed. Awake and alert in no acute distress. Maintaining O2 saturation in the 90s on 2 L/m per nasal cannula. She does have a loose congested cough. She's been afebrile. Hemodynamically stable. She's been initiated on bronchodilators, vancomycin and Zosyn. 0.9 normal saline at 75 ML's per hour. The patient is seen today 12/25/2020 in follow-up on the regular medical floor. She is currently sitting up in bed. Awake and alert in no acute distress. Maintaining O2 saturations in the low 90s on 2 L/m per nasal cannula. Afebrile. Continues with a loose nonproductive cough. Blood cultures reveal no growth to date. White count 13.7. Hemoglobin 14.3. Platelet count 445. Sodium 140. Potassium 4.1. Creatinine 0.50. Remains on Zosyn, albuterol. Plan is for bronchoscopy with BAL today. Objective - Vital Signs Vital signs: Vital Signs Temp 97.9 F 12/25/20 08:00 Pulse 72 12/25/20 10:00 Resp 16 12/25/20 08:00 BP 168/88 12/25/20 08:00 Pulse Ox 92 L 12/25/20 08:00 Intake & Output 12/24/20 12/25/20 12/25/20 18:59 06:59 18:59 Intake Total 750 Balance 750 Intake: Intake, IV Titration 350 Amount Piperacillin-Tazobactam 3 100 .375 gm In Sodium Chloride 0.9% 100 ml @ 25 mls/hr IVPB Q8H YUAN Rx#: [id number] Sodium Chloride 0.9% 1, 250 000 ml @ 75 mls/hr IV . [id number] YUAN Rx#:[id number] Oral 400 Other: # Voids 4 - Exam GENERAL EXAM: Alert, very pleasant 85-year-old female patient, on 2 L nasal cannula, fairly comfortable in no apparent distress. HEAD: Normocephalic. EYES: Normal reaction of pupils, equal size. NOSE: Clear with pink turbinates. THROAT: No erythema or exudates. NECK: No masses, no JVD. CHEST: No chest wall deformity. LUNGS: Equal air entry with crackles in the posterior bases, bilateral rhonchi. CVS: S1 and S2 normal with no audible murmur, regular rhythm. ABDOMEN: No hepatosplenomegaly, normal bowel sounds, no guarding or rigidity. SPINE: No scoliosis or deformity SKIN: No rashes CENTRAL NERVOUS SYSTEM: No focal deficits, tone is normal in all 4 extremities. EXTREMITIES: There is no peripheral edema. No clubbing, no cyanosis. Peripheral pulses are intact. - Labs CBC & Chem 7: 12/25/20 08:51 12/25/20 08:51 Labs: Abnormal Lab Results - Last 24 Hours (Table) 12/25/20 12/25/20 Range/Units 08:51 08:51 WBC 13.7 H (3.8-10.6) k/uL Carbon Dioxide 35 H (22-30) mmol/L Creatinine 0.50 L (0.52-1.04) mg/dL Microbiology - Last 24 Hours (Table) 12/23/20 12:47 Blood Culture - Preliminary Blood No Growth after 24 hours 12/23/20 12:47 Blood Culture - Preliminary Blood No Growth after 24 hours Assessment and Plan Assessment: 1 Acute on chronic hypoxic respiratory failure secondary to centrilobular lung nodules with cavitary soft tissue masses bilaterally. Suspect atypical mycobacterial infection versus Aspergillus bronchopneumonia, granulomatosis with polyangiitis, bronchoalveolar carcinoma. Pro-calcitonin 0.09. [place] virus not detected. 2 Leukocytosis secondary to above him a improving currently 13.7 3 History of pulmonary fibrosis on home oxygen 4 History of weight loss approximately 30 pounds last year 5 Hypertension 6 Hyperlipidemia 7 Lifelong nonsmoker Plan: The patient was seen and evaluated by Dr. Pee Gloria, bronchodilators Bronchoscopy with BAL, possible biopsies today We will continue to follow I, the cosigning physician, performed a history & physical examination of the patient. Lungs sounds with crackles in posterior bases, scattered rhonchi. Maintaining good O2 saturations in the 90s on 2 L/m per nasal cannula. I discussed the assessment and plan of care with my nurse practitioner, Makayla costa. I attest to the above note as dictated by her.
--- NOTE | 2020-12-25 12:23 | CDI ---
Documentation Clarification Form Date: 12/25/2020 11:54:31 AM From: Rashmi Giron RN CCDS Admit Date: 12/23/2020 04:18:00 PM Patient Name: Margo Galicia Visit Number: [id number] Discharge Date: ATTENTION: The Clinical Documentation Specialists (CDI) and [facility] Coding Staff appreciate your assistance in clarifying documentation. Please respond to the clarification below the line at the bottom and electronically sign. The CDI & [facility] Coding staff will review the response and follow-up if needed. Please note: Queries are made part of the Legal Health Record. If you have any questions, please contact the author of this message via ITS. Dr. Tara Benitez Conflicting documentation has been found in the medical record. As attending physician, please provide clarification. Chronic Hypoxic Respiratory Failure, H&P 12/23, and Internal Medicine PN 12/24 & 12/25. Acute Hypoxemic Respiratory Failure, Pulmonary consult 12/24. History/Risk Factors: 85-year-old female with a history of pulmonary fibrosis was sent to ED from PCP office due to shortness of breath and a cough for three weeks. Medical History: COPD, HLD, HTN, Pulmonary Fibrosis and chronic respiratory failure. H&P 12/23. Clinical Indicators: Patient does have underlying COPD supposed to be on oxygen. Wears 2L oxygen at home for history of COPD and pulmonary fibrosis. ED Note 12/23. General exam: Alert, very pleasant 85-year-old female patient, on room air, fairly comfortable in no apparent distress. Pulmonary Consult 12/24 Lung Assessment: Equal air entry with crackles in the posterior bases, bilateral rhonchi. Pulmonary Consult 12/24 VSS: 12/23 11:24 B/P 165/71; HR 72; Temp 98.4 F; RR 22; SpO2 93% room air VSS: 12/24 08:08 B/P 158/68; HR 71; Temp 98.2 F; RR 18; SpO2 93% 2L nasal cannula. Treatment: Breathing Tx: 12/23 Albuterol/ Ipratropium 0.5mg-3mg Inhalation x1; 12/23 Albuterol/ Ipratropium 0.5mg-3mg Inhalation Q4H YUAN changed 12/25 to QID YUAN; 12/25 Albuterol Sulfate Ventolin 2.5mg Inhalation RT QID PRN. Oxygen: / to current 2L nasal cannula Please clarify which diagnosis is most appropriate: [ ] Chronic Hypoxic Respiratory Failure [ ] Acute on Chronic Respiratory Failure [ X ] Acute Hypoxic Respiratory Failure [ ] Other (please specify) [ ] Unable to determine (Template Last Revised: September 2020) [ X ] Acute Hypoxic Respiratory Failure MTDD
[2020-12-25] MEDS ORDERED: PROPOFOL 10 MG/ML 20 ML VIAL IV ONE (14:22)
[2020-12-25] MEDS ORDERED: LIDOCAINE 1% INJ 10MG/ML (20 ML MDV) ONE (14:22)
[2020-12-25] MEDS ORDERED: IV FLUID CONTINUATION 1,000 ML IV ONE (14:26)
[2020-12-25] MEDS: lisinopriL 20 MG TAB PO SCH (17:43)
[2020-12-25] MEDS: ATORVASTATIN 20 MG TAB PO SCH (17:43)
[2020-12-25] MEDS: CHOLECALCIFEROL 25 MCG (1000 IU) TABLET PO SCH (17:43)
[2020-12-25] MEDS: MULTIVITAMINS, THERA 1 EACH TAB PO SCH (17:43)
[2020-12-25] MEDS: VERAPAMIL SR 120 MG TABLET.ER PO SCH (18:19)
--- NOTE | 2020-12-25 19:23 | PN ---
PROGRESS NOTE DATE OF SERVICE: 12/25/2020 REASON FOR FOLLOWUP: Cough, abnormal CT, question for atypical infection. INTERVAL HISTORY: Patient is afebrile. The patient is breathing comfortably. She continues to have a cough, not bringing up any sputum though. No nausea, no vomiting. No abdominal pain. No diarrhea. PHYSICAL EXAMINATION: Blood pressure 158/65 with pulse 99. Temperature 98. She is 91% on 2 L nasal cannula. General description is an elderly female lying in in no distress. Respiratory system: Unlabored breathing, decreased intensity of breath sounds. No wheeze. HEART: S1, S2. Regular rate and rhythm. ABDOMEN: Soft. No tenderness. LABS: Hemoglobin is 14, white count 13.7, BUN of 11, creatinine 0.50. Blood culture so far negative. DIAGNOSTIC IMPRESSION AND PLAN: Patient admitted to hospital with cough, sputum production with multifocal infiltrate concern for possible atypical mycobacterial infection. Clinically not behaving as a TB. Waiting for bronchoscopy this afternoon. The patient is covered with Zosyn to continue while waiting for the workup to be completed. Continue supportive care. MMODL / IJN: [id number] /
[2020-12-26] MEDS: SODIUM CHLORIDE 0.9% 1,000 ML IV SCH ×2 (01:06→06:14)
[2020-12-26] MEDS: PIPERACILLIN-TAZOBACTAM 3.375 GM in SODIUM CHLORIDE 0.9% 100 ML IVPB SCH ×3 (01:34→18:11)
--- NOTE | 2020-12-26 06:58 | PCN ---
PROCEDURE NOTE PROCEDURE PERFORMED: Bronchoscopy and bronchoalveolar lavage of multiple lobes of both lungs. PREOPERATIVE DIAGNOSES: Abnormal chest x-ray, abnormal CT of the chest, suspected bronchiectasis. POSTOPERATIVE DIAGNOSIS: Bronchiectasis, malignancy is not entirely ruled out. ANESTHESIA USED: IV conscious sedation. PROCEDURE: The patient was prepared according to the bronchoscopy protocol. She was placed in the supine position. O2 was applied via nasal cannula and we monitored her O2 saturation continuously. Blood pressure was intermittently monitored, and cardiac rhythm was continuously monitored. After adequate IV conscious sedation, a bite block was applied, and the bronchoscope was advanced through the bite block into the area of the vocal cords. The vocal cords were intact. Lidocaine applied over the vocal cords, the bronchoscope was advanced further down and thorough examination was done of the trachea, juan, right upper lobe, right middle lobe, right lower lobe, left upper lobe lingula and left lower lobe. There was clearly evidence of thick purulent secretions noted in both lungs and in different lobes. Lavage was done of the right upper lobe, right middle lobe, right lower lobe. Lavage was also done from the left upper lobe lingula and left lower lobe. Thick purulent secretions were obtained and cleared all the secretions from the airways. The fluid was sent for different diagnostic studies. Procedure was well tolerated. No evidence of any complications. Daughter updated on her condition. Awaiting diagnostic studies on the fluid that I have obtained. Again, no immediate complications. MMODL / IJN: [id number] /
[2020-12-26] MEDS: IPRATROPIUM-ALBUTEROL 3 ML NEB INHALATION SCH ×4 (07:59→21:08)
[2020-12-26 08:32] LABS: African American GFR (CKD) >90 (>60 ml/min/1.73 sqM); Anion Gap 7 mmol/L; Blood Urea Nitrogen 12 mg/dL (7-17); Calcium 9.2 mg/dL (8.4-10.2); Carbon Dioxide 31 mmol/L (22-30); Chloride 101 mmol/L (98-107); Glucose 89 mg/dL (74-99); Non-African American GFR(CKD) 88 (>60 ml/min/1.73 sqM); Potassium 3.8 mmol/L (3.5-5.1); Sodium 139 mmol/L (137-145)
--- NOTE | 2020-12-26 10:36 | P.PN ---
Subjective Progress Note Date: 12/26/20 Principal diagnosis: cough Patient is an 85-year-old female with pulmonary fibrosis and chronic hypoxic respiratory failure on 2 L nasal cannula, hypertension, and dyslipidemia who presented to the ER due to 3 weeks of cough and progressive shortness of breath. She was seen by the nurse practitioner at her primary care office who sent her to the hospital. In the ER she underwent an extensive evaluation. On arrival her vital signs were within normal limits. Initial chest x-ray showed possible infectious or inflammatory process with abscess or neoplasm not excluded. She subsequently underwent a CTA of the chest which showed central lobular nodules in such entities as tuberculosis, not tuberculosis Mycobacterium, Aspergillus, granulomatous polyangiitis, bronchial alveolar carcinoma or metastatic disease. She was started on vancomycin and Zosyn. Arrangements were made for admission. Procalcitonin and COVID negative. She was seen by pulmonary and underwent bronchoscopy which showed purulent sputum. Patient seen and examined at bedside. feeling better, + less cough, +shortness of breath improved, eating and drinking well. General: non toxic, no distress, appears at stated age Derm: warm, dry Head: atraumatic, normocephalic, symmetric Eyes: EOMI, no lid lag, anicteric sclera Mouth: no lip lesion, mucus membranes moist, + thrush Cardiovascular: S1S2 reg, no murmur, positive posterior tibial pulse bilateral, Lungs: velcro crackles anterior chest , no accessory muscle use Abdominal: soft, nontender to palpation, no guarding, no appreciable o rganomegaly Ext: no gross muscle atrophy, no edema, no contractures Neuro: CN II-XI grossly intact, no focal neuro deficits Psych: Alert, oriented, appropriate affect Central lobular lung nodules concerns, Chronic hypoxic respiratory failure -Suspicious for Mycobacterium avium intracellulare with history of pulmonary fibrosis, less likely metastatic disease with history of cholangiocarcinoma re quiring bowel resection at age 58, and less likely tuberculosis - unlikely bacterial with procalcitonin 0.09, continue vanco and zosyn until after bronch -Airborn precautions -AFB, QuantiFERON Gold pending -Pulm recs appreciated: trial of antibiotics and then repeat imaging -ID recs appreciated - echo EF 55-60% - Blood cultures negative to date Pulmonary fibrosis without exacerbation - budesonide, duoneb - When necessary albuterol Thrush -Nystatin swish and swallow Hypertension, accelerated on arrival -Likely secondary to stress -Resume verapamil, lisinopril Dyslipidemia -Statin CODE STATUS: DO NOT RESUSCITATE DVT prophylaxis: Lovenox Discussed with: Patient, nursing, pulmonary Anticipated discharge date: 3-[address]: Home with home health A total of 35 minutes was spent on the care of this complex patient more than 50% of the time was spent in counseling and care coordination. Objective - Vital Signs Vital signs: Vital Signs Temp 98.1 F 12/26/20 08:24 Pulse 68 12/26/20 08:24 Resp 18 12/26/20 08:24 BP 170/74 12/26/20 08:24 Pulse Ox 99 12/26/20 08:24 Intake & Output 12/25/20 12/26/20 12/26/20 18:59 06:59 18:59 Intake Total 100 100 Balance 100 100 Intake: IV 100 Oral 100 Other: # Voids 8 1 - Labs CBC & Chem 7: 12/25/20 08:51 12/26/20 07:37 Labs: Abnormal Lab Results - Last 24 Hours (Table) 12/26/20 Range/Units 07:37 Carbon Dioxide 31 H (22-30) mmol/L Creatinine 0.51 L (0.52-1.04) mg/dL Microbiology - Last 24 Hours (Table) 12/25/20 14:48 Gram Stain - Preliminary Bronchoalviolar Lavage - Left Bronchial Washings Culture - Preliminary 12/25/20 14:48 Acid Fast Bacilli Culture - Preliminary Bronchoalviolar Lavage - Left 12/25/20 14:48 Fungal Culture - Preliminary Bronchoalviolar Lavage - Left 12/23/20 12:47 Blood Culture - Preliminary Blood No Growth after 48 hours 12/23/20 12:47 Blood Culture - Preliminary Blood No Growth after 48 hours
[2020-12-26] MEDS: NYSTATIN 100,000 UNIT/ML SUSP 500,000 UNIT/5 ML CUP PO SCH ×4 (10:40→22:34)
[2020-12-26 11:16] LABS: HCT 43.4 % (37.2-46.3); HGB 13.6 g/dL (12.0-15.0); MCH 28.9 pg (27.0-32.0); MCHC 31.3 g/dL (32.0-37.0); MCV 92.1 fL (80.0-97.0); Mean Platelet Volume 10.6 fL (9.5-12.2); Platelet Count 489 X 10*3/uL (140-440); RBC 4.71 X 10*6/uL (4.10-5.20); RDW 14.6 % (11.5-14.5); WBC 12.61 X 10*3/uL (4.50-10.00)
--- NOTE | 2020-12-26 11:31 | P.PN ---
Subjective Progress Note Date: 12/26/20 Principal diagnosis: Acute on chronic hypoxic respiratory failure secondary to central lobular lung nodules with cavitary soft tissue masses bilaterally This is a pleasant 85-year-old female patient who follows with Dr. Kwong as her primary care provider. She has a history of hypertension, hyperlipidemia, vitamin D deficiency, pulmonary fibrosis and is on home oxygen. She is a lifelong nonsmoker. She presented to the emergency room yesterday with complaints of increasing shortness of breath cough and congestion. She was referred there from an outpatient urgent care center. She has had a productive sputum of yellowish green phlegm. Occasional blood-tinged. No fever or chills. She states she had lost about 30 pounds last year. Weight is currently staying the same. Chest x-ray revealed patchy bilateral airspace opacities. There is a thick walled cavity in the right suprahilar region measuring 2.1 cm. Abscess or neoplasm not excluded. Tiny right pleural effusion. Computed tomography scan of the chest revealed centrilobular lung nodules can be seen in such entities as tuberculosis and nontender tuberculosis mycobacterial infection, Aspergillus, br onchopneumonia, granulomatosis with polyangiitis, bronchioloalveolar carcinoma. White count 17.3. Hemoglobin 13.0. Platelets 449. Sodium 138. Potassium 3.9. Bicarb 34. Creatinine 0.54. Glucose 91. Pro-calcitonin 0.09. [place] virus not detected. She is seen today in consultation on the regular medical floor in [facility] [place]. She is currently sitting up in bed. Awake and alert in no acute distress. Maintaining O2 saturation in the 90s on 2 L/m per nasal cannula. She does have a loose congested cough. She's been afebrile. Hemodynamically stable. She's been initiated on bronchodilators, vancomycin and Zosyn. 0.9 normal saline at 75 ML's per hour. The patient is seen today 12/25/2020 in follow-up on the regular medical floor. She is currently sitting up in bed. Awake and alert in no acute distress. Maintaining O2 saturations in the low 90s on 2 L/m per nasal cannula. Afebrile. Continues with a loose nonproductive cough. Blood cultures reveal no growth to date. White count 13.7. Hemoglobin 14.3. Platelet count 445. Sodium 140. Potassium 4.1. Creatinine 0.50. Remains on Zosyn, albuterol. Plan is for bronchoscopy with BAL today. The patient is seen today 12/26/2020 in follow-up on the regular medical floor. She is currently awake and alert in no acute distress. Maintaining O2 saturations up to 99% on 2 L/m per nasal cannula. She's afebrile. She did undergo bronchoscopy with BAL yesterday. Cultures are pending. White count 12.6. Hemoglobin 13.6. Sodium 139. Potassium 3.8. Creatinine 0.51. She is continued on Zosyn. Remains on bronchodilators. 0.9 normal saline at 75 mL per hour. Objective - Vital Signs Vital signs: Vital Signs Temp 98.1 F 12/26/20 08:24 Pulse 68 12/26/20 08:24 Resp 18 12/26/20 08:24 BP 170/74 12/26/20 08:24 Pulse Ox 99 12/26/20 08:24 Intake & Output 12/25/20 12/26/20 12/26/20 18:59 06:59 18:59 Intake Total 100 100 Balance 100 100 Intake: IV 100 Oral 100 Other: # Voids 8 1 - Exam GENERAL EXAM: Alert, very pleasant 85-year-old female patient, on 2 L nasal cannula, fairly comfortable in no apparent distress. HEAD: Normocephalic. EYES: Normal reaction of pupils, equal size. NOSE: Clear with pink turbinates. THROAT: No erythema or exudates. NECK: No masses, no JVD. CHEST: No chest wall deformity. LUNGS: Equal air entry with crackles in the posterior bases, bilateral rhonchi. CVS: S1 and S2 normal with no audible murmur, regular rhythm. ABDOMEN: No hepatosplenomegaly, normal bowel sounds, no guarding or rigidity. SPINE: No scoliosis or deformity SKIN: No rashes CENTRAL NERVOUS SYSTEM: No focal deficits, tone is normal in all 4 extremities. EXTREMITIES: There is no peripheral edema. No clubbing, no cyanosis. Peripheral pulses are intact. - Labs CBC & Chem 7: 12/26/20 07:37 12/26/20 07:37 Labs: Abnormal Lab Results - Last 24 Hours (Table) 12/26/20 12/26/20 Range/Units 07:37 07:37 WBC 12.61 H (4.50-10.00) X 10*3/uL MCHC 31.3 L (32.0-37.0) g/dL RDW 14.6 H (11.5-14.5) % Plt Count 489 H (140-440) X 10*3/uL Carbon Dioxide 31 H (22-30) mmol/L Creatinine 0.51 L (0.52-1.04) mg/dL Microbiology - Last 24 Hours (Table) 12/25/20 14:48 Gram Stain - Preliminary Bronchoalviolar Lavage - Left Bronchial Washings Culture - Preliminary 12/25/20 14:48 Acid Fast Bacilli Culture - Preliminary Bronchoalviolar Lavage - Left 12/25/20 14:48 Fungal Culture - Preliminary Bronchoalviolar Lavage - Left 12/23/20 12:47 Blood Culture - Preliminary Blood No Growth after 48 hours 12/23/20 12:47 Blood Culture - Preliminary Blood No Growth after 48 hours Assessment and Plan Assessment: 1 Acute on chronic hypoxic respiratory failure secondary to centrilobular lung nodules with cavitary soft tissue masses bilaterally. Suspect atypical mycobacterial infection versus Aspergillus bronchopneumonia, granulomatosis with polyangiitis, bronchoalveolar carcinoma. Pro-calcitonin 0.09. [place] virus not detected. Bronchoscopy with BAL performed on 12/25/2020. Cultures pending. Remains on Zosyn. 2 Leukocytosis secondary to above him a improving currently 12.6 3 History of pulmonary fibrosis on home oxygen 4 History of weight loss approximately 30 pounds last year 5 Hypertension 6 Hyperlipidemia 7 Lifelong nonsmoker Plan: The patient was seen and evaluated by Dr. Glasgow Bronchoscopy with BAL performed yesterday, cultures pending Continue Zosyn, bronchodilators We will continue to follow I, the cosigning physician, performed a history & physical examination of the patient. Lungs sounds with crackles in posterior bases, scattered rhonchi. Maintaining good O2 saturations in the 90s on 2 L/m per nasal cannula. I discussed the assessment and plan of care with my nurse practitioner, Makayla hanson. I attest to the above note as dictated by her.
[2020-12-26] MEDS: ATORVASTATIN 20 MG TAB PO SCH (18:11)
[2020-12-26] MEDS: MULTIVITAMINS, THERA 1 EACH TAB PO SCH (18:11)
[2020-12-26] MEDS: lisinopriL 20 MG TAB PO SCH (18:11)
[2020-12-26] MEDS: CHOLECALCIFEROL 25 MCG (1000 IU) TABLET PO SCH (18:11)
[2020-12-26] MEDS: VERAPAMIL SR 120 MG TABLET.ER PO SCH (18:12)
--- NOTE | 2020-12-26 19:20 | PN ---
PROGRESS NOTE DATE OF SERVICE: 12/26/2020 REASON FOR FOLLOWUP: Pneumonia. INTERVAL HISTORY: The patient is afebrile. The patient is breathing comfortably. The patient denies having any chest pain. She did have some cough. No significant sputum. No hemoptysis. No abdominal pain or diarrhea. PHYSICAL EXAMINATION: Her blood pressure is 139/63, pulse of 72, temperature 98.1. She is 91% on 2 L nasal cannula. General description is an elderly female lying in in no distress. Respiratory system: Unlabored breathing, decreased intensity of breath sounds. No wheeze. Heart S1, S2. Regular rate and rhythm. Abdomen soft, no tenderness. Extremities: No edema of the feet. LABS: Hemoglobin is 13.1, white count 12.61, creatinine 0.51. Bronch culture so far negative. Blood culture negative. DIAGNOSTIC IMPRESSION AND PLAN: Patient admitted to the hospital with shortness of breath, cough, sputum production with evidence of multiple nodular and cavitary lesions status post bronchoscopy, cultures pending. Continue with Zosyn and monitor clinical course closely. MMODL / IJN: [id number] /
[2020-12-27] MEDS: PIPERACILLIN-TAZOBACTAM 3.375 GM in SODIUM CHLORIDE 0.9% 100 ML IVPB SCH ×3 (01:21→18:02)
[2020-12-27] MEDS: SODIUM CHLORIDE 0.9% 1,000 ML IV SCH ×2 (01:22→16:27)
--- NOTE | 2020-12-27 07:02 | XR ---
EXAMINATION TYPE: XR chest 1V portable DATE OF EXAM: 12/27/2020 COMPARISON: 12/23/2020 HISTORY: Shortness of breath TECHNIQUE: Single frontal view of the chest is obtained. FINDINGS: There are diffuse interstitial and scattered small air space opacities throughout both anurag gs right greater than left unchanged when allowing for differences in technique compared to the study of 12/23/2020. The heart size is normal. The pulmonary vasculature is not congested. There has been interval development of a small right pleural effusion. There is no pneumothorax. . The osseous structures IMPRESSION: Diffuse bilateral infiltrates right greater than left unchanged compared to the prior st udy. Development of a small right pleural effusion. Findings consistent with an acute pulmonary proce ss.
[2020-12-27] MEDS: IPRATROPIUM-ALBUTEROL 3 ML NEB INHALATION SCH ×4 (08:47→21:01)
--- NOTE | 2020-12-27 09:17 | P.PN ---
Subjective Progress Note Date: 12/27/20 Principal diagnosis: cough Patient is an 85-year-old female with pulmonary fibrosis and chronic hypoxic respiratory failure on 2 L nasal cannula, hypertension, and dyslipidemia who presented to the ER due to 3 weeks of cough and progressive shortness of breath. She was seen by the nurse practitioner at her primary care office who sent her to the hospital. In the ER she underwent an extensive evaluation. On arrival her vital signs were within normal limits. Initial chest x-ray showed possible infectious or inflammatory process with abscess or neoplasm not excluded. She subsequently underwent a CTA of the chest which showed central lobular nodules in such entities as tuberculosis, not tuberculosis Mycobacterium, Aspergillus, granulomatous polyangiitis, bronchial alveolar carcinoma or metastatic disease. She was started on vancomycin and Zosyn. Arrangements were made for admission. Procalcitonin and COVID negative. She was seen by pulmonary and underwent bronchoscopy which showed purulent sputum. AFB s ear is negative. Patient seen and examined at bedside. feeling better, + less cough, +shortness of breath improved, eating and drinking well. General: non toxic, no distress, appears at stated age Derm: warm, dry Head: atraumatic, normocephalic, symmetric Eyes: EOMI, no lid lag, anicteric sclera Mouth: no lip lesion, mucus membranes moist, + thrush Cardiovascular: S1S2 reg, no murmur, positive posterior tibial pulse bilateral, Lungs: velcro crackles adn ronchi anterior chest , no accessory muscle use Abdominal: soft, nontender to palpation, no guarding, no appreciable organomegaly Ext: no gross muscle atrophy, no edema, no contractures Neuro: CN II-XI grossly intact, no focal neuro deficits Psych: Alert, oriented, appropriate affect Central lobular lung nodules concerns, Chronic hypoxic respiratory failure - Suspicious for Mycobacterium avium intracellulare with history of pulmonary fibrosis, less likely metastatic disease with history of cholangiocarcinoma requiring bowel resection at age 58, and less likely tuberculosis - unlikely bacterial with procalcitonin 0.09, continue vanco and zosyn until after bronch - AFB negative, QuantiFERON Gold pending - Pulm recs appreciated: trial of antibiotics and then repeat imaging - ID recs appreciated - echo EF 55-60% - Blood cultures negative to date - likely home in AM once cultures are resulted Pulmonary fibrosis without exacerbation - budesonide, duoneb - When necessary albuterol Thrush -Nystatin swish and swallow Thrombocytosis, reactive - follow CBC Hypertension, accelerated on arrival -Likely secondary to stress -Resume verapamil, lisinopril Dyslipidemia -Statin CODE STATUS: DO NOT RESUSCITATE DVT prophylaxis: Lovenox Discussed with: Patient, nursing Anticipated discharge date: in AM Anticipated discharge place: Home with home health A total of 35 minutes was spent on the care of this complex patient more than 50% of the time was spent in counseling and care coordination. Objective - Vital Signs Vital signs: Vital Signs Temp 98.3 F 12/27/20 07:14 Pulse 70 12/27/20 08:59 Resp 18 12/27/20 07:14 BP 146/67 12/27/20 07:14 Pulse Ox 92 L 12/27/20 07:14 Intake & Output 12/26/20 12/27/20 12/27/20 18:59 06:59 18:59 Intake Total 975 Balance 975 Intake: Intake, IV Titration 725 Amount Piperacillin-Tazobactam 3 100 .375 gm In Sodium Chloride 0.9% 100 ml @ 25 mls/hr IVPB Q8H [facility] Rx#: [id number] Sodium Chloride 0.9% 1, 625 000 ml @ 75 mls/hr IV . [id number] [facility] Rx#:[id number] Oral 250 Other: Voiding Method Toilet # Voids 3 - Labs CBC & Chem 7: 12/26/20 07:37 12/26/20 07:37 Labs: Abnormal Lab Results - Last 24 Hours (Table) 12/26/20 Range/Units 07:37 WBC 12.61 H (4.50-10.00) X 10*3/uL MCHC 31.3 L (32.0-37.0) g/dL RDW 14.6 H (11.5-14.5) % Plt Count 489 H (140-440) X 10*3/uL Microbiology - Last 24 Hours (Table) 12/25/20 14:48 Acid Fast Bacilli Smear - Final Bronchoalviolar Lavage - Left Acid Fast Bacilli Culture - Preliminary 12/23/20 12:47 Blood Culture - Preliminary Blood No Growth after 72 hours 12/23/20 12:47 Blood Culture - Preliminary Blood No Growth after 72 hours 12/25/20 14:48 Gram Stain - Preliminary Bronchoalviolar Lavage - Left Bronchial Washings Culture - Preliminary
[2020-12-27] MEDS: NYSTATIN 100,000 UNIT/ML SUSP 500,000 UNIT/5 ML CUP PO SCH ×4 (10:18→20:36)
[2020-12-27] MEDS: guaiFENesin 600 MG TABLET.ER PO SCH ×2 (10:26→20:36)
--- NOTE | 2020-12-27 12:38 | P.PN ---
Subjective Progress Note Date: 12/27/20 Principal diagnosis: Acute on chronic hypoxic respiratory failure secondary to central lobular lung nodules with cavitary soft tissue masses bilaterally This is a pleasant 85-year-old female patient who follows with Dr. Kwong as her primary care provider. She has a history of hypertension, hyperlipidemia, vitamin D deficiency, pulmonary fibrosis and is on home oxygen. She is a lifelong nonsmoker. She presented to the emergency room yesterday with complaints of increasing shortness of breath cough and congestion. She was referred there from an outpatient urgent care center. She has had a productive sputum of yellowish green phlegm. Occasional blood-tinged. No fever or chills. She states she had lost about 30 pounds last year. Weight is currently staying the same. Chest x-ray revealed patchy bilateral airspace opacities. There is a thick walled cavity in the right suprahilar region measuring 2.1 cm. Abscess or neoplasm not excluded. Tiny right pleural effusion. Computed tomography scan of the chest revealed centrilobular lung nodules can be seen in such entities as tuberculosis and nontender tuberculosis mycobacterial infection, Aspergillus, br onchopneumonia, granulomatosis with polyangiitis, bronchioloalveolar carcinoma. White count 17.3. Hemoglobin 13.0. Platelets 449. Sodium 138. Potassium 3.9. Bicarb 34. Creatinine 0.54. Glucose 91. Pro-calcitonin 0.09. [place] virus not detected. She is seen today in [facility] [place]. She is currently sitting up in bed. Awake and alert in no acute distress. Maintaining O2 saturation in the 90s on 2 L/m per nasal cannula. She does have a loose congested cough. She's been afebrile. Hemodynamically stable. She's been initiated on bronchodilators, vancomycin and Zosyn. 0.9 normal saline at 75 ML's per hour. The patient is seen today 12/25/2020 in follow-up on the regular medical floor. She is currently sitting up in bed. Awake and alert in no acute distress. Maintaining O2 saturations in the low 90s on 2 L/m per nasal cannula. Afebrile. Continues with a loose nonproductive cough. Blood cultures reveal no growth to date. White count 13.7. Hemoglobin 14.3. Platelet count 445. Sodium 140. Potassium 4.1. Creatinine 0.50. Remains on Zosyn, albuterol. Plan is for bronchoscopy with BAL today. The patient is seen today 12/26/2020 in follow-up on the regular medical floor. She is currently awake and alert in no acute distress. Maintaining O2 saturations up to 99% on 2 L/m per nasal cannula. She's afebrile. She did undergo bronchoscopy with BAL yesterday. Cultures are pending. White count 12.6. Hemoglobin 13.6. Sodium 139. Potassium 3.8. Creatinine 0.51. She is continued on Zosyn. Remains on bronchodilators. 0.9 normal saline at 75 mL per hour. The patient is seen today 12/27/2020 in follow-up on the right medical floor. She is currently sitting up in bed. Awake and alert in no acute distress. Maintaining O2 saturations in the 90s on 2 L/m per nasal cannula. Out of AFB precautions. The cultures are pending. She is continued on Zosyn. Remains on bronchodilators. 0.9 normal saline at 75 mL per hour. Objective - Vital Signs Vital signs: Vital Signs Temp 98.3 F 12/27/20 07:14 Pulse 70 12/27/20 08:59 Resp 18 12/27/20 07:14 BP 146/67 12/27/20 07:14 Pulse Ox 92 L 12/27/20 07:14 Intake & Output 12/26/20 12/27/20 12/27/20 18:59 06:59 18:59 Intake Total 975 Balance 975 Intake: Intake, IV Titration 725 Amount Piperacillin-Tazobactam 3 100 .375 gm In Sodium Chloride 0.9% 100 ml @ 25 mls/hr IVPB Q8H [facility] Rx#: [id number] Sodium Chloride 0.9% 1, 625 000 ml @ 75 mls/hr IV . [id number] [facility] Rx#:[id number] Oral 250 Other: Voiding Method Toilet # Voids 3 - Exam GENERAL EXAM: Alert, very pleasant 85-year-old female patient, on 2 L nasal cannula, fairly comfortable in no apparent distress. HEAD: Normocephalic. EYES: Normal reaction of pupils, equal size. NOSE: Clear with pink turbinates. THROAT: No erythema or exudates. NECK: No masses, no JVD. CHEST: No chest wall deformity. LUNGS: Equal air entry with crackles in the posterior bases, bilateral rhonchi. CVS: S1 and S2 normal with no audible murmur, regular rhythm. ABDOMEN: No hepatosplenomegaly, normal bowel sounds, no guarding or rigidity. SPINE: No scoliosis or deformity SKIN: No rashes CENTRAL NERVOUS SYSTEM: No focal deficits, tone is normal in all 4 extremities. EXTREMITIES: There is no peripheral edema. No clubbing, no cyanosis. Peripheral pulses are intact. - Labs CBC & Chem 7: 12/26/20 07:37 12/26/20 07:37 Labs: Microbiology - Last 24 Hours (Table) 12/25/20 14:48 Acid Fast Bacilli Smear - Final Bronchoalviolar Lavage - Left Acid Fast Bacilli Culture - Preliminary 12/23/20 12:47 Blood Culture - Preliminary Blood No Growth after 72 hours 12/23/20 12:47 Blood Culture - Preliminary Blood No Growth after 72 hours Assessment and Plan Assessment: 1 Acute on chronic hypoxic respiratory failure secondary to centrilobular lung nodules with cavitary soft tissue masses bilaterally. Suspect atypical mycobacterial infection versus Aspergillus bronchopneumonia, granulomatosis with polyangiitis, bronchoalveolar carcinoma. Pro-calcitonin 0.09. [place] virus not detected. Bronchoscopy with BAL performed on 12/25/2020. Cultures pending. R emakeith on Zosyn. 2 Leukocytosis secondary to above him a improving currently 12.6 3 History of pulmonary fibrosis on home oxygen 4 History of weight loss approximately 30 pounds last year 5 Hypertension 6 Hyperlipidemia 7 Lifelong nonsmoker Plan: The patient was seen and evaluated by Dr. Glasgow Bronchoscopy cultures pending Continue Zosyn, bronchodilators Patient has home O2 Probable discharge in a.m. 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 Lungs sounds with crackles in posterior bases, scattered rhonchi. Maintaining good O2 saturations in the 90s on 2 L/m per nasal cannula. I discussed the assessment and plan of care with my nurse practitioner, Makayla David. I attest to the above note as dictated by her.
[2020-12-27] MEDS: LACTOBACILLUS ACIDOPH & BULGAR 1 EACH PACKET PO SCH ×3 (12:51→20:36)
[2020-12-27] MEDS: ATORVASTATIN 20 MG TAB PO SCH (18:02)
[2020-12-27] MEDS: MULTIVITAMINS, THERA 1 EACH TAB PO SCH (18:02)
[2020-12-27] MEDS: CHOLECALCIFEROL 25 MCG (1000 IU) TABLET PO SCH (18:02)
[2020-12-27] MEDS: VERAPAMIL SR 120 MG TABLET.ER PO SCH (18:02)
[2020-12-27] MEDS: lisinopriL 20 MG TAB PO SCH (18:02)
--- NOTE | 2020-12-27 20:15 | PN ---
PROGRESS NOTE DATE OF SERVICE: 12/27/2020 REASON FOR FOLLOWUP: Abnormal CT and a question of atypical pneumonia/Mycobacterium. INTERVAL HISTORY: The patient is afebrile. Patient is breathing comfortably on room air. Patient denies any chest pain. Did have some cough, not bringing any sputum. No abdominal pain or diarrhea. PHYSICAL EXAMINATION: Blood pressure 158/69, pulse of 70, temperature 97.5. She is 95% on room air. General description is an elderly female lying in bed in no distress. Respiratory system: Unlabored breathing, decreased breath sounds at the base. No wheeze. HEART: S1, S2. Regular rate and rhythm. ABDOMEN: Soft, no tenderness. EXTREMITIES: No edema of the are feet. LABS: Hemoglobin is 13.8, white count 12.61, creatinine 0.51. Bronch culture so far negative. DIAGNOSTIC IMPRESSION AND PLAN: Patient with multi cavitated pneumonia on the CT. Concern for possible atypical mycobacterial pneumonia status post bronch, cultures are pending. Patient is on empiric Zosyn, may transition to short course of oral antibiotic while waiting for the mycobacterial culture to finalize and continue supportive care. MMODL / IJN: [id number] /
[2020-12-27] MEDS ORDERED: hydrALAZINE HCL 25 MG TAB PO STA (22:08)
[2020-12-28] MEDS: PIPERACILLIN-TAZOBACTAM 3.375 GM in SODIUM CHLORIDE 0.9% 100 ML IVPB SCH ×2 (01:23→09:45)
[2020-12-28] MEDS: SODIUM CHLORIDE 0.9% 1,000 ML IV SCH (06:42)
[2020-12-28 07:42] VITALS: BP 176/93; RESP 16; TEMP 99.2
[2020-12-28] MEDS: IPRATROPIUM-ALBUTEROL 3 ML NEB INHALATION SCH (09:06)
[2020-12-28 09:24] VITALS: PULSE 78
--- NOTE | 2020-12-28 09:33 | P.DS ---
Providers Date of admission: 12/23/20 16:18 Expected date of discharge: 12/28/20 Attending physician: Tara Benitez DO Consults: 12/23/20 15:50 Consult Physician Routine Consulting Provider: Charlie Glasgow Consult Reason/Comments: Atypical pneumonia; Lung mass Do you want consulting provider notified?: Yes Consult Physician Routine Consulting Provider: Kindra Davis Consult Reason/Comments: Atypical pneumonia Do you want consulting provider notified?: Yes Primary care physician: Faviola Kwong MD Hospital Course: Patient is an 85-year-old female with pulmonary fibrosis and chronic hypoxic respiratory failure on 2 L nasal cannula, hypertension, and dyslipidemia who presented to the ER due to 3 weeks of cough and progressive shortness of breath. She was seen by the nurse practitioner at her primary care office who sent her to the hospital. In the ER she underwent an extensive evaluation. On arrival her vital signs were within normal limits. Initial chest x-ray showed possible infectious or inflammatory process with abscess or neoplasm not excluded. She subsequently underwent a CTA of the chest which showed central lobular nodules in such entities as tuberculosis, not tuberculosis Mycobacterium, Aspergillus, granulomatous polyangiitis, bronchial alveolar carcinoma or metastatic disease. She was started on vancomycin and Zosyn. Arrangements were made for admission. Procalcitonin and COVID negative. She was seen by pulmonary and underwent bronchoscopy which showed purulent sputum. AFB smear is negative AFB culture pending Central lobular lung nodules concerns, Chronic hypoxic respiratory failure - Suspicious for Mycobacterium avium intracellulare with history of pulmonary fibrosis, less likely metastatic disease with history of cholangiocarcinoma requiring bowel resection at age 58, and less likely tuberculosis - unlikely bacterial with procalcitonin 0.09, -Patient was started on vanco and zosyn for 5 days in the hospital and finish 3 more days of antibiotic with Augmentin - AFB negative, QuantiFERON Gold pending - Pulm recs appreciated: trial of antibiotics and then repeat imaging - echo EF 55-60% - Blood cultures negative to date - Plan to follow up with her occasional babysitter Pulmonary fibrosis without exacerbation - budesonide, duoneb - When necessary albuterol Thrush -Nystatin swish and swallow Thrombocytosis, reactive Hypertension, -Blood pressure not well controlled. Home dose of lisinopril increased to 20 mg twice daily. Continue verapamil Dyslipidemia -Statin Patient will be discharged home in a stable condition. For further details about this hospitalization please refer to the electronic chart. Time spent on discharge > 30 minutes including counseling and coordination of care Patient Condition at Discharge: Stable Plan - Discharge Summary Discharge Rx Participant: No New Discharge Prescriptions: New Amoxicillin/Potassium Clav [Augmentin 875-125 Tablet] 1 tab PO Q12HR 3 Days #6 tab Nystatin 100,000 Unit/ml Susp [Mycostatin Oral Susp] 500,000 unit PO QID #100 ml lisinopriL [Zestril] 20 mg PO BID #60 tab Continue Aspirin 81 mg PO W/SUPPER Verapamil HCl [Verapamil ER] 120 mg PO W/SUPPER Multivit with Calcium,Iron,Min [Women's Multivitamin] 1 tab PO W/SUPPER Cholecalciferol [Vitamin D3 (25 Mcg = 1000 Iu)] 25 mcg PO W/SUPPER Atorvastatin [Lipitor] 20 mg PO W/SUPPER Discontinued lisinopriL [Zestril] 20 mg PO W/SUPPER Discharge Medication List Aspirin 81 mg PO W/SUPPER 12/23/20 [History] Atorvastatin [Lipitor] 20 mg PO W/SUPPER 12/23/20 [History] Cholecalciferol [Vitamin D3 (25 Mcg = 1000 Iu)] 25 mcg PO W/SUPPER 12/23/20 [History] Multivit with Calcium,Iron,Min [Women's Multivitamin] 1 tab PO W/SUPPER 12/23/20 [History] Verapamil HCl [Verapamil ER] 120 mg PO W/SUPPER 12/23/20 [History] Amoxicillin/Potassium Clav [Augmentin 875-125 Tablet] 1 tab PO Q12HR 3 Days #6 tab 12/28/20 [Rx] Nystatin 100,000 Unit/ml Susp [Mycostatin Oral Susp] 500,000 unit PO QID #100 ml 12/28/20 [Rx] lisinopriL [Zestril] 20 mg PO BID #60 tab 12/28/20 [Rx] Follow up Appointment(s)/Referral(s): Faviola Kwong MD [Primary Care Provider] - 1-2 days Charlie Glasgow MD [STAFF PHYSICIAN] - 1 Week Discharge Disposition: HOME SELF-CARE
[2020-12-28 09:48] LABS: HCT 45.5 % (34.0-46.0); HGB 14.2 gm/dL (11.4-16.0); Hypochromasia Slight; MCH 28.5 pg (25.0-35.0); MCHC 31.3 g/dL (31.0-37.0); MCV 91.2 fL (80.0-100.0); Mean Platelet Volume 7.6; Platelet Count 490 k/uL (150-450); RBC 4.98 m/uL (3.80-5.40); RDW 14.6 % (11.5-15.5); WBC 13.8 k/uL (3.8-10.6)
[2020-12-28] MEDS: NYSTATIN 100,000 UNIT/ML SUSP 500,000 UNIT/5 ML CUP PO SCH (09:49)
[2020-12-28] MEDS: LACTOBACILLUS ACIDOPH & BULGAR 1 EACH PACKET PO SCH (09:49)
[2020-12-28] MEDS: guaiFENesin 600 MG TABLET.ER PO SCH (09:49)
[2020-12-28 10:22] LABS: African American GFR (CKD) >90 (>60 ml/min/1.73 sqM); Anion Gap 5 mmol/L; Blood Urea Nitrogen 6 mg/dL (7-17); Calcium 9.3 mg/dL (8.4-10.2); Carbon Dioxide 36 mmol/L (22-30); Chloride 100 mmol/L (98-107); Glucose 149 mg/dL (74-99); Non-African American GFR(CKD) 89 (>60 ml/min/1.73 sqM); Potassium 3.9 mmol/L (3.5-5.1); Sodium 141 mmol/L (137-145)
--- NOTE | 2020-12-28 12:39 | P.PN ---
Subjective Progress Note Date: 12/28/20 Principal diagnosis: Acute on chronic hypoxic respiratory failure secondary to central lobular lung nodules, possible pneumonia This is a pleasant 85-year-old female patient who follows with Dr. Kwong as her primary care provider. She has a history of hypertension, hyperlipidemia, vitamin D deficiency, pulmonary fibrosis and is on home oxygen. She is a lifelong nonsmoker. She presented to the emergency room yesterday with complaints of increasing shortness of breath cough and congestion. She was referred there from an outpatient urgent care center. She has had a productive sputum of yellowish green phlegm. Occasional blood-tinged. No fever or chills. She states she had lost about 30 pounds last year. Weight is currently staying the same. Chest x-ray revealed patchy bilateral airspace opacities. There is a thick walled cavity in the right suprahilar region measuring 2.1 cm. Abscess or neoplasm not excluded. Tiny right pleural effusion. Computed tomography scan of the chest revealed centrilobular lung nodules can be seen in such entities as tuberculosis and nontender tuberculosis mycobacterial infection, Aspergillus, bronchopneumonia, granulomatosis with polyangiitis, bronchioloalveolar carcinoma. White count 17.3. Hemoglobin 13.0. Platelets 449. Sodium 138. Potassium 3.9. Bicarb 34. Creatinine 0.54. Glucose 91. Pro-calcitonin 0.09. [place] virus not detected. She is seen today in consultation on the regular medical floor in [facility] [place]. She is currently sitting up in bed. Awake and alert in no acute distress. Maintaining O2 saturation in the 90s on 2 L/m per nasal cannula. She does have a loose congested cough. She's been afebrile. Hemodynamically stable. She's been initiated on bronchodilators, vancomycin an d Zosyn. 0.9 normal saline at 75 ML's per hour. The patient is seen today 12/25/2020 in follow-up on the regular medical floor. She is currently sitting up in bed. Awake and alert in no acute distress. Maintaining O2 saturations in the low 90s on 2 L/m per nasal cannula. Afebrile. Continues with a loose nonproductive cough. Blood cultures reveal no growth to date. White count 13.7. Hemoglobin 14.3. Platelet count 445. Sodium 140. Potassium 4.1. Creatinine 0.50. Remains on Zosyn, albuterol. Plan is for bronchoscopy with BAL today. The patient is seen today 12/26/2020 in follow-up on the regular medical floor. She is currently awake and alert in no acute distress. Maintaining O2 saturations up to 99% on 2 L/m per nasal cannula. She's afebrile. She did undergo bronchoscopy with BAL yesterday. Cultures are pending. White count 12.6. Hemoglobin 13.6. Sodium 139. Potassium 3.8. Creatinine 0.51. She is continued on Zosyn. Remains on bronchodilators. 0.9 normal saline at 75 mL per hour. The patient is seen today 12/27/2020 in follow-up on the right medical floor. She is currently sitting up in bed. Awake and alert in no acute distress. Maintaining O2 saturations in the 90s on 2 L/m per nasal cannula. Out of AFB precautions. The cultures are pending. She is continued on Zosyn. Remains on bronchodilators. 0.9 normal saline at 75 mL per hour. On 12/28/2020 patient seen in follow-up on medical surgical floor. She is awake and alert, in no acute distress, she is on 2 L of oxygen pulse ox is 92%, just low-grade fever this morning with that temp of 99.2F, she is breathing comfortably, no complaint of chest pain or hemoptysis, she status post bro nchoscopy and bronchoalveolar lavage of multiple lobes of both lungs, bronchial wash cultures thus far are negative, Gram stain showed no organisms, and many PMNs. Patient has been treated with Zosyn and vancomycin, breathing treatments. Clinically improved. Most recent chest x-ray from yesterday showed diffuse bilateral infiltrates right greater than left unchanged. Objective - Vital Signs Vital signs: Vital Signs Temp 99.2 F 12/28/20 07:38 Pulse 78 12/28/20 09:23 Resp 16 12/28/20 07:38 BP 176/93 12/28/20 07:38 Pulse Ox 92 L 12/28/20 07:38 Intake & Output 12/27/20 12/28/20 12/28/20 18:59 06:59 18:59 Intake Total 550 Balance 550 Intake: Intake, IV Titration 550 Amount Piperacillin-Tazobactam 3 100 .375 gm In Sodium Chloride 0.9% 100 ml @ 25 mls/hr IVPB Q8H [facility] Rx#: [id number] Sodium Chloride 0.9% 1, 450 000 ml @ 75 mls/hr IV . [id number] [facility] Rx#:[id number] Other: Voiding Method Toilet # Voids 3 - Exam GENERAL EXAM: Alert, very pleasant, 85-year-old white female, intubated oxygen pulse ox of 92%, comfortable in no apparent distress. HEAD: Normocephalic/atraumatic. EYES: Normal reaction of pupils, equal size. Conjunctiva pink, sclera white. NOSE: Clear with pink turbinates. THROAT: No erythema or exudates. NECK: No masses, no JVD, no thyroid enlargement, no adenopathy. CHEST: No chest wall deformity. Symmetrical expansion. LUNGS: Equal air entry with mild crackles bilateral bases CVS: Regular rate and rhythm, normal S1 and S2, no gallops, no murmurs, no rubs ABDOMEN: Soft, nontender. No hepatosplenomegaly, normal bowel sounds, no gua rding or rigidity. EXTREMITIES: No clubbing, no edema, no cyanosis, 2+ pulses and upper and lower extremities. MUSCULOSKELETAL: Muscle strength and tone normal. SPINE: No scoliosis or deformity SKIN: No rashes CENTRAL NERVOUS SYSTEM: Alert and oriented -3. No focal deficits, tone is normal in all 4 extremities. PSYCHIATRIC: Alert and oriented -3. Appropriate affect. Intact judgment and insight. - Labs CBC & Chem 7: 12/28/20 09:06 12/28/20 09:06 Labs: Abnormal Lab Results - Last 24 Hours (Table) 12/28/20 12/28/20 Range/Units 09:06 09:06 WBC 13.8 H (3.8-10.6) k/uL Plt Count 490 H (150-450) k/uL Carbon Dioxide 36 H (22-30) mmol/L BUN 6 L (7-17) mg/dL Creatinine 0.49 L (0.52-1.04) mg/dL Glucose 149 H (74-99) mg/dL Microbiology - Last 24 Hours (Table) 12/23/20 12:47 Blood Culture - Preliminary Blood No Growth after 96 hours 12/23/20 12:47 Blood Culture - Preliminary Blood No Growth after 96 hours Assessment and Plan Plan: Assessment: 1 Acute on chronic hypoxic respiratory failure secondary to centrilobular lung nodules with cavitary soft tissue masses bilaterally. Suspect atypical mycobacterial infection versus Aspergillus bronchopneumonia, granulomatosis with polyangiitis, bronchoalveolar carcinoma. Pro-calcitonin 0.09. [place] virus not detected. Bronchoscopy with BAL performed on 12/25/2020. Cultures pending. Remains on Zosyn. 2 Leukocytosis secondary to above him a improving currently 12.6 3 History of pulmonary fibrosis on home oxygen 4 History of weight loss approximately 30 pounds last year 5 Hypertension 6 Hyperlipidemia 7 Lifelong nonsmoker Plan: No acute events overnight BAL cultures remain negative Fever or chills No worsening dyspnea Discharge home is pending Patient will complete oral course of antibiotics in the form of Augmentin 875 125 mg tablets twice a day for 3 more days I performed a history & physical examination of the patient and discussed their management with my nurse practitioner, Janet Salguero. I reviewed the nurse practitioner's note and agree with the documented findings and plan of care. Lung sounds are positive for diminished breath sounds. The findings and the impression was discussed with the patient. I attest to the documentation by the nurse practitioner. Time with Patient: Less than 30
--- NOTE | 2020-12-28 13:12 | PN ---
PROGRESS NOTE DATE OF SERVICE: 12/28/2020 REASON FOR FOLLOWUP: Pneumonia. INTERVAL HISTORY: The patient is afebrile. The patient is breathing comfortably. Denies having any chest pain. No shortness of breath. Occasional cough. No abdominal pain. No diarrhea. PHYSICAL EXAMINATION: Blood pressure is 176/93, pulse of 84, temperature 99.2. She is 92% on 2 L nasal cannula. General description is an elderly female up in the room in no distress. Respiratory system: Unlabored breathing, decreased intensity of breath sounds. No wheeze. Heart S1, S2. Regular rate and rhythm. ABDOMEN: Soft, no tenderness. LABORATORY STUDIES: Hemoglobin 14, white count 13.8, BUN of 6, creatinine 0.49. Culture so far negative. DIAGNOSTIC IMPRESSION AND PLAN: Patient with evidence of a cavitating pneumonia with concern for possible atypical of an infection. Culture so far pending. Overall improve on Zosyn, finishing a short course of oral Augmentin and close outpatient followup. MMODL / IJN: [id number] /
== END 2020-12-28 11:01 | disposition home or self-care (01) | DRG 177 ==
LOC: EC 11:12 → 4SSUR 16:18
PROVIDERS: ADMIT Internal Medicine; ATTEND Internal Medicine
PROC: 0B9J7ZX Drainage of Left Lower Lung Lobe, Via Natural or Artificial Opening, Diagnostic (ICD-10-PCS; principal; 2020-12-25 13:10)
PROC: 0B9G7ZX Drainage of Left Upper Lung Lobe, Via Natural or Artificial Opening, Diagnostic (ICD-10-PCS; principal; 2020-12-25 13:10)
PROC: 0B9D7ZX Drainage of Right Middle Lung Lobe, Via Natural or Artificial Opening, Diagnostic (ICD-10-PCS; principal; 2020-12-25 13:10)
PROC: 0B9H7ZX Drainage of Lung Lingula, Via Natural or Artificial Opening, Diagnostic (ICD-10-PCS; principal; 2020-12-25 13:10)
PROC: 0B9F7ZX Drainage of Right Lower Lung Lobe, Via Natural or Artificial Opening, Diagnostic (ICD-10-PCS; principal; 2020-12-25 13:10)
PROC: 0B9C7ZX Drainage of Right Upper Lung Lobe, Via Natural or Artificial Opening, Diagnostic (ICD-10-PCS; principal; 2020-12-25 13:10)
DX: A31.0 Pulmonary mycobacterial infection (principal); J96.01 Acute respiratory failure with hypoxia; B37.0 Candidal stomatitis; J47.0 Bronchiectasis with acute lower respiratory infection; E78.5 Hyperlipidemia, unspecified; I10 Essential (primary) hypertension; J18.0 Bronchopneumonia, unspecified organism; J84.10 Pulmonary fibrosis, unspecified; Z20.822 Contact with and (suspected) exposure to COVID-19; Z66 Do not resuscitate; Z99.81 Dependence on supplemental oxygen; Z88.5 Allergy status to narcotic agent; R91.8 Other nonspecific abnormal finding of lung field; Z90.49 Acquired absence of other specified parts of digestive tract; Z79.899 Other long term (current) drug therapy; Z79.82 Long term (current) use of aspirin
CPT/HCPCS: 31624; 71045; 71046; 71260; 80048; 80053; 83605; 83735; 84100; 84145; 84484; 85025; 85027; 85610; 85730; 86355; 86357; 86359; 86360; 86480; 87040; 87070; 87102; 87116; 87205; 87206; 87252; 87496; 87498; 87502; 87529; 87634; 87635; 87798; 88108; 88305; 93005; 93306; 94640; 94760; 96365; 99285

== ENCOUNTER → 2022-05-11 | Outpatient (CLI) | payer MEDICARE ==
--- NOTE | 2022-05-12 07:49 | CT ---
EXAMINATION TYPE: CT chest wo con CT DLP: 399.2 mGycm, Automated exposure control for dose reduction was used. DATE OF EXAM: 05/11/2022 5:32 PM COMPARISON: CT chest 12/23/2020 CLINICAL INDICATION:Female, 86 years old with history of J84.9; Interstitial Lung disease TECHNIQUE: Multiple axial images were obtained through the chest. Sagittal and coronal reformats were created for review. Contrast used: none. Oral contrast used: none. FINDINGS: LUNGS/ PLEURA: Progression of interstitial lung disease changes with scattered reticular opacities, t ree-in-bud opacities and nodular opacities throughout the lungs. There is a new cavitary lesion of th e right lower lungs superior segment which appeared as 2 distinct separate solid nodules on prior CT examination. This cavitary lesion now measures up to 4.1 cm with peripheral eccentric wall thickening . No definitive honeycombing visualized. AIRWAY: There is a large area wall thickening scattered throughout the lungs. There remains bronchiec tasis within the right middle lobe. Additional airspace opacities and tree-in-bud opacities are seen scattered throughout the lungs. HEART: Mildly enlarged for size with coronary artery atherosclerosis. MEDIASTINUM: No gross evidence of adenopathy. VASCULATURE: Ascending thoracic aorta fusiform dilation up to 4.2 cm. MUSCULOSKELETAL: No acute osseous abnormalities SOFT TISSUES/LYMPH NODES: Unremarkable. LOWER NECK: No significant findings. UPPER ABDOMEN: No significant findings. IMPRESSION: 1. Increase in scattered tree-in-bud opacities throughout the lungs favoring infectious/inflammatory process. There were 2 more solid pulmonary nodules in the right lower lobe superior segment seen on prior which are now coalesced into one larger cavitary mass. Findings could represent tuberculosis re activation in the appropriate clinical settings versus necrotizing/cavitary pneumonia with abscess fo rmation. There is other etiologies. Malignancy not entirely excluded however felt to be less likely g iven other signs of infection/inflammation. 2. Mild cardiomegaly. 3. Smooth fusiform ascending thoracic aorta ectasia of the 4.2 cm, Similar to prior.
== END | disposition home or self-care (01) ==
LOC: RADCTMAIN 16:48
PROVIDERS: ATTEND Internal Medicine
DX: J84.9 Interstitial pulmonary disease, unspecified (principal); R91.8 Other nonspecific abnormal finding of lung field; I51.7 Cardiomegaly; I77.810 Thoracic aortic ectasia
CPT/HCPCS: 71250

== ENCOUNTER → 2022-06-03 | Outpatient (CLI) | payer MEDICARE ==
--- NOTE | 2022-06-04 11:22 | PE ---
EXAMINATION TYPE: PET CT fusion skull to thigh DATE OF EXAM: 06/03/2022 CLINICAL INDICATION:Female, 86 years old with history of G81.90 HEMIPLEGIA, UNSPECIFIED AFFECTING; TECHNIQUE: Following the intravenous administration of 10.95 mCi of F-18 FDG, whole body images are performed from the skull base to the midthigh. Images are reviewed on the computer in the coronal, a xial, and sagittal planes. Reconstructed rotating images are created on independent workstation and reviewed on the computer. A non-contrast CT is performed in conjunction with the PET scan. Glucose level 83 mg/dL COMPARISON: CT CT chest 05/11/2022, PET/CT None, FINDINGS: Mediastinal SUV mean is 1.5. Hepatic parenchyma SUV mean is 1.9. SKULL BASE AND NECK: No suspicious FDG activity. CHEST, MEDIASTINUM, AND HILAR REGION: Tree-in-bud opacities within the right lower lobe to extend towards the periphery max SUV 2.8. Cavitation within the superior segment right lower lobe measuring 2.8 x 2.1 cm Max SUV 2.6. Additional scattered tree-in-bud opacities and nodularities are seen throughout the lungs. More conso lidation/bronchiectasis/scarring is seen within the right middle lobe. ABDOMEN AND PELVIS: No suspicious FDG activity. OSSEOUS STRUCTURES: No suspicious FDG activity. OTHER CT: Bilateral aphakia atherosclerosis but carotid bifurcations, arterial vasculature and crane ry arteries. The heart is mildly enlarged for size. Remote injury to the spleen with calcification hammonds ggested. Small hiatal hernia. Post surgical changes to the bowel in the mid anterior abdomen. Moderat e stool burden. IMPRESSION: Findings remain suspicious for Infectious/inflammatory process as described on prior CT on 05/11/2022 . Nothing to definitively suggest malignancy at this time. Correlate for atypical infectious processe s. Pulmonary consultation with consideration for bronchial lavage with cultures may be of benefit.
== END | disposition home or self-care (01) ==
LOC: RADPETMAIN 14:51
PROVIDERS: ATTEND Internal Medicine
DX: R91.8 Other nonspecific abnormal finding of lung field (principal); G81.90 Hemiplegia, unspecified affecting unspecified side
CPT/HCPCS: 78815; A9552

== ENCOUNTER 2022-10-25 10:54 | Observation (INO) | payer MEDICARE ==
[2022-10-25 12:39] LABS: Appearance,Urine Clear (Clear); Bilirubin,Urine Negative (Negative); Blood,Urine Negative (Negative); Color,Urine Yellow; Glucose,Urine (UA) Negative (Negative); Ketones,Urine Negative (Negative); Leukocyte Esterase,Urine Negative (Negative); Nitrite,Urine Negative (Negative); Protein,Urine Negative (Negative); Specific Gravity,Urine 1.015 (1.001-1.035); Urobilinogen,Urine <2.0 mg/dL (<2.0)
[2022-10-25] MEDS ORDERED: SODIUM CHLORIDE 0.9% 500 ML 500 ML IV STA (14:39)
--- NOTE | 2022-10-25 15:09 | ED ---
General Adult HPI - General Chief complaint: Weakness Stated complaint: recheck Time Seen by Provider: 10/25/22 14:27 Source: patient, family, RN notes reviewed, old records reviewed Mode of arrival: wheelchair Limitations: no limitations - History of Present Illness Initial comments: 87 year old female presenting for evaluation of increased confusion and hallucinations. This has progressed over many days. There is a baseline history of confusion however it has worsened. They contacted the primary care physician who recommended to present to the emergency department for evaluation. The patient denies complaint. No fever. No vomiting. No shortness of breath or chest pain. - Related Data Home Medications Medication Instructions Recorded Confirmed Atorvastatin [Lipitor] 20 mg PO DAILY@79912/23/20 10/25/22 Verapamil HCl [Verapamil ER] 120 mg PO DAILY@79912/23/20 10/25/22 lisinopriL [Zestril] 20 mg PO DAILY@79908/19/22 10/25/22 Ipratropium-Albuterol Nebulize 3 ml INHALATION RT-Q6H PRN 09/19/22 10/25/22 [Duoneb 0.5 mg-3 mg/3 ml Soln] hydroCHLOROthiazide [Hydrodiuril] 25 mg PO DAILY@79909/19/22 10/25/22 Aspirin EC [Ecotrin Low Dose] 81 mg PO DAILY@79910/25/22 10/25/22 Cholecalciferol [Vitamin D3 (25 50 mcg PO DAILY@79910/25/22 10/25/22 Mcg = 1000 Iu)] Fluticasone Propion/Salmeterol 1 puff INHALATION RT-BID 10/25/22 10/25/22 [Advair 250-50 Diskus] Multivit-Min/Iron/Folic/Lutein 1 tab PO DAILY@79910/25/22 10/25/22 [Centrum Silver Women Tablet] Tamsulosin [Flomax] 0.4 mg PO DAILY@79910/25/22 10/25/22 Allergies Allergy/AdvReac Type Severity Reaction Status Date / Time codeine AdvReac Hallucinati Verified 10/25/22 15:50 ons Review of Systems ROS Statement: Those systems with pertinent positive or pertinent negative responses have been documented in the HPI. ROS Other: All systems not noted in ROS Statement are negative. Past Medical History Past Medical History: COPD, Hyperlipidemia, Hypertension Additional Past Medical History / Comment(s): pulmonary fibrosis History of Any Multi-Drug Resistant Organisms: None Reported Past Surgical History: Bowel Resection, Section, Cholecystectomy Past Anesthesia/Blood Transfusion Reactions: No Reported Reaction Past Psychological History: No Psychological Hx Reported Smoking Status: Never smoker Past Alcohol Use History: None Reported Past Drug Use History: None Reported General Exam Limitations: no limitations General appearance: alert, in no apparent distress Head exam: Present: atraumatic, normocephalic Eye exam: Present: normal appearance, PERRL ENT exam: Present: mucous membranes dry Neck exam: Present: normal inspection. Absent: tenderness, meningismus Respiratory exam: Present: normal lung sounds bilaterally. Absent: respiratory distress, wheezes Cardiovascular Exam: Present: regular rate, normal rhythm GI/Abdominal exam: Present: soft. Absent: distended, tenderness, guarding Extremities exam: Present: normal inspection, normal capillary refill. Absent: pedal edema Neurological exam: Present: alert, CN II-XII intact. Absent: oriented X3, motor sensory deficit Psychiatric exam: Present: normal affect, normal mood Skin exam: Present: warm, dry, intact. Absent: cyanosis, diaphoretic Course Vital Signs 10/25/22 10/25/22 10/25/22 11:41 14:56 16:27 Temperature 98.1 F Pulse Rate 57 L 51 L 52 L Respiratory 22 16 16 Rate Blood Pressure 135/74 168/84 128/67 O2 Sat by Pulse 95 97 3 L Oximetry EKG Findings - EKG Comments: EKG Findings:: EKG: Sinus bradycardia rate of 56, AZ interval 176, QRS duration 86, QTC [address] segment elevation. Medical Decision Making - Medical Decision Making Was pt. sent in by a medical professional or institution (, PA, AUDIOVISUAL LIBRARIAN, urgent care, hospital, or half-way...) When possible be specific @ -No Did you speak to anyone other than the patient for history (EMS, parent, family, police, friend...)? What history was obtained from this source @ -Discussed with patient's son who is at bedside Did you review nursing and triage notes (agree or disagree)? Why? @ -I reviewed and agree with nursing and triage notes Were old charts reviewed (outside hosp., previous admission, EMS record, old EKG, old radiological studies, urgent care reports/EKG's, half-way records)? Report findings @ -Reviewed previous laboratory testing Differential Diagnosis (chest pain, altered mental status, abdominal pain women, abdominal pain men, vaginal bleeding, weakness, fever, dyspnea, syncope, headache, dizziness, GI bleed, back pain, seizure, CVA, palpatations, mental health, musculoskeletal)? @ -Differential Altered Mental Status: Hypoglycemia, DKA, hypercapnia, ETOH, overdose, CO poisoning, trauma, myxedema coma, HTN encephalopathy, infection, encephalitis, psychosis, intercranial hemorrhage, hepatic encephalopathy, meningitis, CVA, this is not meant to be an all-inclusive list EKG interpreted by me (3pts min.). @ -As above X-rays interpreted by me (1pt min.). @ -X-ray showing right hilar lung mass CT interpreted by me (1pt min.). @ -None done U/S interpreted by me (1pt. min.). @ -None done What testing was considered but not performed or refused? (CT, X-rays, U/S, labs)? Why? @ -None What meds were considered but not given or refused? Why? @ -None Did you discuss the management of the patient with other professionals (professionals i.e. , PA, AUDIOVISUAL LIBRARIAN, lab, RT, psych nurse, social service coordinator, aircraft instrument mechanic, te acher, parole hearing officer, case management coordinator)? Give summary @ -Case discussed with the admitting team Was smoking cessation discussed for >3mins.? @ -No Was critical care preformed (if so, how long)? @ -No Were there social determinants of health that impacted care today? How? (Homelessness, low income, unemployed, alcoholism, drug addiction, transportation, low edu. Level, literacy, decrease access to med. care, fpc, rehab)? @ -No Was there de-escalation of care discussed even if they declined (Discuss DNR or withdrawal of care, Hospice)? DNR status @ -No What co-morbidities impacted this encounter? (DM, HTN, Smoking, COPD, CAD, Cancer, CVA, ARF, Chemo, Hep., AIDS, mental health diagnosis, sleep apnea, morbi d obesity)? @ -Dementia, COPD Was patient admitted / discharged? Hospital course, mention meds given and route, prescriptions, significant lab abnormalities, going to OR and other pertinent info. @ -Patient will be admitted for acute mental status changes and hypercalcemia. Patient does have lung mass on x-ray. Family member who is at bedside is uncertain if this has been diagnosed previously. She's placed on IV fluids. She will be monitored closely. Undiagnosed new problem with uncertain prognosis? @ -No Drug Therapy requiring intensive monitoring for toxicity (Heparin, Nitro, Insulin, Cardizem)? @ -No Were any procedures done? @ -No Diagnosis/symptom? @ -Altered mental status, lung mass, hypercalcemia Acute, or Chronic, or Acute on Chronic? @ -Acute Uncomplicated (without systemic symptoms) or Complicated (systemic symptoms)? @ -Complicated - Lab Data Result diagrams: 10/25/22 15:17 10/25/22 15:17 Lab Results 10/25/22 10/25/22 10/25/22 Range/Units 12:19 15:17 15:17 WBC 10.9 H (3.8-10.6) k/uL RBC 4.99 (3.80-5.40) m/uL Hgb 14.8 (11.4-16.0) gm/dL Hct 46.1 H (34.0-46.0) % MCV 92.3 (80.0-100.0) fL MCH 29.6 (25.0-35.0) pg MCHC 32.0 (31.0-37.0) g/dL RDW 14.8 (11.5-15.5) % Plt Count 481 H (150-450) k/uL MPV 8.5 Neutrophils % 78 % Lymphocytes % 12 % Monocytes % 6 % Eosinophils % 2 % Basophils % 1 % Neutrophils # 8.5 H (1.3-7.7) k/uL Lymphocytes # 1.3 (1.0-4.8) k/uL Monocytes # 0.7 (0-1.0) k/uL Eosinophils # 0.3 (0-0.7) k/uL Basophils # 0.1 (0-0.2) k/uL PT 10.6 (9.0-12.0) sec INR 1.0 (<1.2) APTT 24.3 (22.0-30.0) sec VBG pH (7.31-7.41) VBG pCO2 (37-51) mmHg VBG HCO3 (24-28) mmol/L Sodium (137-145) mmol/L Potassium (3.5-5.1) mmol/L Chloride (98-107) mmol/L Carbon Dioxide (22-30) mmol/L Anion Gap mmol/L BUN (7-17) mg/dL Creatinine (0.52-1.04) mg/dL Est GFR (CKD-EPI)AfAm (>60 ml/min/1.73 sqM) Est GFR (CKD-EPI)NonAf (>60 ml/min/1.73 sqM) Glucose (74-99) mg/dL Plasma Lactic Acid Stevenson (0.7-2.0) mmol/L Calcium (8.4-10.2) mg/dL Total Bilirubin (0.2-1.3) mg/dL AST (14-36) U/L ALT (4-34) U/L Alkaline Phosphatase (38-126) U/L Total Protein (6.3-8.2) g/dL Albumin (3.5-5.0) g/dL Urine Color Yellow Urine Appearance Clear (Clear) Urine pH 7.0 (5.0-8.0) Ur Specific Crary 1.015 (1.001-1.035) Urine Protein Negative (Negative) Urine Glucose (UA) Negative (Negative) Urine Ketones Negative (Negative) Urine Blood Negative (Negative) Urine Nitrite Negative (Negative) Urine Bilirubin Negative (Negative) Urine Urobilinogen <2.0 (<2.0) mg/dL Ur Leukocyte Esterase Negative (Negative) 10/25/22 10/25/22 10/25/22 Range/Units 15:17 15:17 15:17 WBC (3.8-10.6) k/uL RBC (3.80-5.40) m/uL Hgb (11.4-16.0) gm/dL Hct (34.0-46.0) % MCV (80.0-100.0) fL MCH (25.0-35.0) pg MCHC (31.0-37.0) g/dL RDW (11.5-15.5) % Plt Count (150-450) k/uL MPV Neutrophils % % Lymphocytes % % Monocytes % % Eosinophils % % Basophils % % Neutrophils # (1.3-7.7) k/uL Lymphocytes # (1.0-4.8) k/uL Monocytes # (0-1.0) k/uL Eosinophils # (0-0.7) k/uL Basophils # (0-0.2) k/uL PT (9.0-12.0) sec INR (<1.2) APTT (22.0-30.0) sec VBG pH 7.37 (7.31-7.41) VBG pCO2 66 H (37-51) mmHg VBG HCO3 38 H (24-28) mmol/L Sodium 138 (137-145) mmol/L Potassium 5.2 H (3.5-5.1) mmol/L Chloride 94 L (98-107) mmol/L Carbon Dioxide 40 H (22-30) mmol/L Anion Gap 4 mmol/L BUN 28 H (7-17) mg/dL Creatinine 0.70 (0.52-1.04) mg/dL Est GFR (CKD-EPI)AfAm 89 (>60 ml/min/1.73 sqM) Est GFR (CKD-EPI)NonAf 78 (>60 ml/min/1.73 sqM) Glucose 99 (74-99) mg/dL Plasma Lactic Acid Stevenson 1.1 (0.7-2.0) mmol/L Calcium 11.9 H (8.4-10.2) mg/dL Total Bilirubin 1.1 (0.2-1.3) mg/dL AST 33 (14-36) U/L ALT 19 (4-34) U/L Alkaline Phosphatase 78 (38-126) U/L Total Protein 8.0 (6.3-8.2) g/dL Albumin 4.2 (3.5-5.0) g/dL Urine Color Urine Appearance (Clear) Urine pH (5.0-8.0) Ur Specific Crary (1.001-1.035) Urine Protein (Negative) Urine Glucose (UA) (Negative) Urine Ketones (Negative) Urine Blood (Negative) Urine Nitrite (Negative) Urine Bilirubin (Negative) Urine Urobilinogen (<2.0) mg/dL Ur Leukocyte Esterase (Negative) Disposition Clinical Impression: Lung mass, Hypercalcemia, AMS (altered mental status) Disposition: ADMITTED IP TO THIS HOSP Condition: Stable Is patient prescribed a controlled substance at d/c from ED?: No Referrals: Boutt,Margo, MD [Primary Care Provider] - 1-2 days Time of Disposition: 16:44
[2022-10-25 15:26] LABS: Basophils # (A) 0.1 k/uL (0-0.2); Basophils % (A) 1 %; Eosinophils # (A) 0.3 k/uL (0-0.7); Eosinophils % (A) 2 %; HCT 46.1 % (34.0-46.0); HGB 14.8 gm/dL (11.4-16.0); Lymphocytes # (A) 1.3 k/uL (1.0-4.8); Lymphocytes % (A) 12 %; MCH 29.6 pg (25.0-35.0); MCV 92.3 fL (80.0-100.0); Mean Platelet Volume 8.5; Monocytes # (A) 0.7 k/uL (0-1.0); Monocytes % (A) 6 %; Neutrophils # (A) 8.5 k/uL (1.3-7.7); Neutrophils % (A) 78 %; Platelet Count 481 k/uL (150-450); RBC 4.99 m/uL (3.80-5.40); RDW 14.8 % (11.5-15.5); WBC 10.9 k/uL (3.8-10.6)
[2022-10-25 15:39] LABS: Partial Thromboplastin Time 24.3 sec (22.0-30.0); Prothrombin Time 10.6 sec (9.0-12.0)
[2022-10-25 15:41] LABS: Albumin 4.2 g/dL (3.5-5.0); Calcium 11.9 mg/dL (8.4-10.2); Total Bilirubin 1.1 mg/dL (0.2-1.3)
[2022-10-25 15:45] LABS: Potassium 5.2 mmol/L (3.5-5.1)
[2022-10-25 15:48] LABS: VBG PH 7.37 (7.31-7.41)
--- NOTE | 2022-10-25 15:54 | CT ---
EXAMINATION TYPE: CT brain wo con DATE OF EXAM: 10/25/2022 COMPARISON: 09/19/2022 HISTORY: weakness CT DLP: 1090.[address] of the brain was performed. The ventricles, basal cisterns and sulci overlying the cerebral convexities demonstrate mild enlargem ent. There is no evidence for intracranial hemorrhage or sulcal effacement. There is decreased attenuation about the periventricular white matter and deep white matter of both c erebral hemispheres, compatible with chronic small vessel ischemia. Differential diagnosis does inclu de demyelination. No mass effects are seen.No midline shift. Osseous calvarium is intact. If symptoms persist consider MRI. IMPRESSION: 1. Age related atrophic and chronic small vessel ischemic change without acute intracranial process s een at this time.
--- NOTE | 2022-10-25 15:59 | XR ---
EXAMINATION TYPE: XR chest 2V DATE OF EXAM: 10/25/2022 3:51 PM COMPARISON: Chest radiographs from 09/19/2022. TECHNIQUE: XR chest 2V Frontal and lateral views of the chest. CLINICAL INDICATION:Female, 87 years old with history of Weakness; FINDINGS: Lungs/Pleura: No pneumothorax or pleural effusion. Chronic parenchymal changes bilaterally including 4.3 cm thick walled cavitary lesion projecting over the posterior right midlung within the superior a spect of the right lower lobe redemonstrated. No new focal airspace opacity. Pulmonary vascularity: Unremarkable. Heart/mediastinum: Cardiomediastinal silhouette is enlarged and stable. Atherosclerotic calcificatio ns are seen in the aorta. Musculoskeletal: No acute osseous pathology. Diffuse bone demineralization. IMPRESSION: Similar chronic parenchymal fibrotic changes with nonspecific 4.3 cm thick-walled cavitary lesion in the superior right lower lobe redemonstrated. No significant change from prior exam. No new acute pul monary process seen.
[2022-10-25] MEDS ORDERED: ACETAMINOPHEN TAB 325 MG TAB PO PRN (16:29)
[2022-10-25] MEDS ORDERED: NALOXONE 0.4 MG/ML 1 ML VIAL IV PRN (16:29)
[2022-10-25] MEDS ORDERED: IPRATROPIUM-ALBUTEROL 3 ML NEB INHALATION PRN (21:22)
[2022-10-25] MEDS ORDERED: ALBUTEROL NEBULIZED 2.5 MG/3 ML INHALATION PRN (21:27)
[2022-10-25] MEDS ORDERED: IPRATROPIUM 0.5 MG/2.5 ML NEBU INHALATION PRN (21:27)
[2022-10-25] MEDS: hydrALAZINE HCL 25 MG TAB PO SCH (22:16)
[2022-10-25] MEDS: SODIUM CHLORIDE 0.9% 1,000 ML IV SCH (22:16)
[2022-10-26] MEDS ORDERED: ALBUTEROL NEBULIZED 2.5 MG/3 ML INHALATION PRN (03:46)
[2022-10-26] MEDS ORDERED: IPRATROPIUM 0.5 MG/2.5 ML NEBU INHALATION PRN (03:49)
--- NOTE | 2022-10-26 03:52 | P.CNPUL ---
History of Present Illness Consult date: 10/26/22 Requesting physician: Nawaf Blas Reason for consult: lung mass Chief complaint: Confusion History of present illness: I'm seeing this patient in new consultation today 10/26/2022 for a suspected lung mass found on imaging. 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 Patient reportedly lives at [facility]. She does follow with Dr. Glasgow in the office for her COPD and pulmonary fibrosis. Patient did have a recent hospitalization for a urinary tract infection and COPD exacerbation September 19 through September 24. Patient is currently alert and pleasantly confused. She is a poor historian. She is lying in bed, on 2 L nasal cannula, in no acute distress. Apparently, patient presented to the emergency room with this confusion and hallucinations o ana rosa the past few days. Patient denies any pulmonary complaints or fever. Brain CT without contrast was negative for any acute intracranial processes. Chest x- ray on arrival showed chronic parenchymal fibrotic changes along with a nonspecific 4.3 cm thick walled cavitary lesion in the right superior lower lobe which was redemonstrated on previous exam. No acute cardiopulmonary processes seen. Patient had undergone bronchoscopy with Dr. 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 Patient did receive treatment per infectious disease. CBC on arrival showed a WBC count of 10.9, hemoglobin 14.8, hematocrit 46.1, platelets 41,000. Patient's ABG showed a pH of 7.37, pCO2 of 66. BMP on arrival shows sodium 138, potassium 5.2, chloride 94, serum CO2 chronically elevated at 40, BUN 28, creatinine 0.7, glucose 99. Patient's calcium was mildly elevated at 11.9. She denies any bone pain or known active malignancies. Pro calcitonin level was mildly elevated at 0.1. Urinalysis did not suggest urinary tract infection. Patient is afebrile. Normal saline is infusing at 100 mL per hour. Vital signs are stable at this time. Review of Systems REVIEW OF SYSTEMS: CONSTITUTIONAL: Denies any recent significant weight loss or weight gain. EYES: Denies change in vision. EARS, NOSE, MOUTH, THROAT: Denies headaches, denies sore throat. CARDIOVASCULAR: Denies chest pain, palpitations or syncopal episodes. RESPIRATORY: Denies shortness of breath, cough, congestion or hemoptysis. GASTROINTESTINAL: Denies change in appetite, abdominal pain, nausea and vomiting, or diarrhea GENITOURINARY: Denies hematuria, denies infections. MUSKULOSKELETAL: Denies pain, denies swelling. INTEGUMENTARY: Denies rash, denies eczema. NEUROLOGICAL: Denies recent memory loss, no recent seizure activity. PSYCHIATRIC: Denies anxiety, denies depression. HEMATOLOGIC/LYMPHATIC: Denies anemia, denies enlarged lymph node Past Medical History Past Medical History: COPD, Hyperlipidemia, Hypertension Additional Past Medical History / Comment(s): pulmonary fibrosis, bladder cancer History of Any Multi-Drug Resistant Organisms: None Reported Past Surgical History: Bowel Resection, Section, Cholecystectomy, Tubal Ligation Past Anesthesia/Blood Transfusion Reactions: No Reported Reaction Past Psychological History: No Psychological Hx Reported Smoking Status: Never smoker Past Alcohol Use History: None Reported Past Drug Use History: None Reported - Past Family History Son(s) Family Medical History: Cancer Sister(s) Family Medical History: Cancer Medications and Allergies Home Medications Medication Instructions Recorded Confirmed Type Atorvastatin [Lipitor] 20 mg PO DAILY@79912/23/20 10/25/22 History Verapamil HCl [Verapamil ER] 120 mg PO DAILY@79912/23/20 10/25/22 History lisinopriL [Zestril] 20 mg PO DAILY@79908/19/22 10/25/22 History Ipratropium-Albuterol Nebulize 3 ml INHALATION RT-Q6H PRN 09/19/22 10/25/22 History [Duoneb 0.5 mg-3 mg/3 ml Soln] hydroCHLOROthiazide [Hydrodiuril] 25 mg PO DAILY@79909/19/22 10/25/22 History Aspirin EC [Ecotrin Low Dose] 81 mg PO DAILY@79910/25/22 10/25/22 History Cholecalciferol [Vitamin D3 (25 50 mcg PO DAILY@79910/25/22 10/25/22 History Mcg = 1000 Iu)] Fluticasone Propion/Salmeterol 1 puff INHALATION RT-BID 10/25/22 10/25/22 History [Advair 250-50 Diskus] Multivit-Min/Iron/Folic/Lutein 1 tab PO DAILY@0810/25/22 10/25/22 History [Centrum Silver Women Tablet] Tamsulosin [Flomax] 0.4 mg PO DAILY@0800 10/25/22 10/25/22 History Allergies Allergy/AdvReac Type Severity Reaction Status Date / Time codeine AdvReac Hallucinati Verified 10/25/22 15:50 ons Physical Exam Vitals: Vital Signs Temp Pulse Pulse Resp BP BP Pulse Ox 10/26/22 00:24 97.4 F L 58 L 16 150/65 98 10/25/22 19:23 97.5 F L 59 L 18 174/72 95 10/25/22 16:27 52 L 16 128/67 3 L 10/25/22 14:56 51 L 16 168/84 97 10/25/22 11:41 98.1 F 57 L 22 135/74 95 Intake and Output 10/25/22 10/25/22 10/26/22 14:59 22:59 06:59 Other: Voiding Method Diaper Diaper Incontinent Incontinent # Voids 1 Weight 45.359 kg 45.359 kg GENERAL EXAM: Alert and pleasantly confused, 87-year-old white female, comfortable in no apparent distress. HEAD: Normocephalic and atraumatic EYES: Normal reaction of pupils, equal size. NOSE: Clear with pink turbinates. THROAT: No erythema or exudates. NECK: No masses, no JVD. CHEST: No chest wall deformity. LUNGS: Equal air entry with scattered crackles throughout. No wheezes, rhonchi or dullness. On 2 L nasal cannula. No conversational dyspnea or accessory muscle use.. CVS: S1 and S2 normal with no audible murmur, regular rhythm. No extra heart sounds ABDOMEN: No hepatosplenomegaly, active bowel sounds, no guarding or rigidity. SPINE: No scoliosis or deformity SKIN: No rashes CENTRAL NERVOUS SYSTEM: No focal deficits, tone is normal in all 4 extremities. She is only oriented to self EXTREMITIES: There is no peripheral edema, clubbing, or cyanosis. Peripheral pu lses are intact. Results - Laboratory Findings CBC and BMP: 10/25/22 15:17 10/25/22 15:17 PT/INR, D-dimer PT 10.6 sec (9.0-12.0) 10/25/22 15:17 INR 1.0 (<1.2) 10/25/22 15:17 Abnormal lab findings: Abnormal Labs 10/25/22 10/25/22 10/25/22 15:17 15:17 15:17 WBC 10.9 H Hct 46.1 H Plt Count 481 H Neutrophils # 8.5 H VBG pCO2 66 H VBG HCO3 38 H Potassium 5.2 H Chloride 94 L Carbon Dioxide 40 H BUN 28 H Calcium 11.9 H - Diagnostic Findings Chest x-ray: image reviewed Assessment and Plan Assessment: Acute confusion is currently under investigation. Nonenhanced brain CT done on arrival showed no acute intracranial process. Acute COPD exacerbation Acute on chronic hypoxemic and hypercapnic respiratory failure secondary to above. Patient currently on 2 L nasal cannula. Hypercalcemia, mild. Patient has no known malignancies Cavitary lung lesion redemonstrated on chest x-ray this admission. Patient has a known history of manic infection posttreatment. Patient's chest x-ray showed chronic parenchymal fibrotic changes along with a nonspecific 4.3 cm thick- walled cavitary lesion in the superior right lower lobe which was redemonstrated from previous examination. There were no acute pulmonary process. Patient has previously undergone bronchoscopy with BAL with Dr. Rashid on 12/25/2020, cultu res were positive for acid-fast bacilli of mycobacterium chimaera intracellulare and Felicia at that time. Patient received treatment per infectious disease. Hypertension Hyperlipidemia History of bowel resection Plan: Patient's medications, labs, chest x-ray reviewed Procalcitonin level was only mildly elevated at 0.1 Continue supplemental oxygen to maintain oxygen saturation 92% or greater Continue bronchodilators Add Symbicort inhaler Add Solu-Medrol Check parathyroid hormone and repeat calcium Continue with IV hydration Patient is a DO NOT RESUSCITATE We will continue to follow I have personally seen and examined the patient, performed the documentation and the assessment and plan as written. Number of minutes spent on the visit:20 Time with Patient: Greater than 30
[2022-10-26] MEDS: methylPREDNISolone SOD SUCCI 125 MG/2 ML VIAL IV SCH ×4 (06:06→23:35)
[2022-10-26] MEDS: SODIUM CHLORIDE 0.9% 1,000 ML IV SCH ×4 (06:07→20:17)
[2022-10-26 07:48] LABS: Basophils % (A) 0 %; Eosinophils # (A) 0.3 k/uL (0-0.7); Eosinophils % (A) 3 %; HGB 14.8 gm/dL (11.4-16.0); Lymphocytes # (A) 1.2 k/uL (1.0-4.8); Lymphocytes % (A) 12 %; MCH 29.7 pg (25.0-35.0); MCHC 32.2 g/dL (31.0-37.0); MCV 92.3 fL (80.0-100.0); Mean Platelet Volume 8.3; Monocytes # (A) 0.4 k/uL (0-1.0); Monocytes % (A) 4 %; Neutrophils % (A) 79 %; Platelet Count 475 k/uL (150-450); RBC 4.98 m/uL (3.80-5.40); RDW 14.6 % (11.5-15.5); WBC 10.1 k/uL (3.8-10.6)
[2022-10-26] MEDS ORDERED: SYMBICORT 80-4.5 MCG INHALER INHALATION SCH (08:00)
[2022-10-26] MEDS: lisinopriL 20 MG TAB PO SCH (08:40)
[2022-10-26] MEDS: hydrALAZINE HCL 25 MG TAB PO SCH ×3 (08:40→20:17)
[2022-10-26 08:58] LABS: ALT 18 U/L (4-34); AST 28 U/L (14-36); African American GFR (CKD) >90 (>60 ml/min/1.73 sqM); Albumin 3.8 g/dL (3.5-5.0); Alkaline Phosphatase 76 U/L (38-126); Anion Gap 9 mmol/L; Blood Urea Nitrogen 21 mg/dL (7-17); Calcium 10.5 mg/dL (8.4-10.2); Carbon Dioxide 32 mmol/L (22-30); Chloride 98 mmol/L (98-107); Glucose 88 mg/dL (74-99); Magnesium 1.3 mg/dL (1.6-2.3); Non-African American GFR(CKD) 78 (>60 ml/min/1.73 sqM); Potassium 4.1 mmol/L (3.5-5.1); Sodium 139 mmol/L (137-145); Total Bilirubin 0.8 mg/dL (0.2-1.3); Total Protein 7.2 g/dL (6.3-8.2)
[2022-10-26] MEDS: SYMBICORT 160-4.5 MCG INHALER INHALATION SCH ×2 (09:46→21:34)
[2022-10-26] MEDS: IPRATROPIUM 0.5 MG/2.5 ML NEBU INHALATION SCH ×4 (09:46→21:34)
[2022-10-26] MEDS: ALBUTEROL NEBULIZED 2.5 MG/3 ML INHALATION SCH ×4 (09:46→21:33)
--- NOTE | 2022-10-26 10:23 | P.NPCON ---
History of Present Illness - Reason for Consult acute renal failure - History of Present Illness Reason for consultation: Hypercalcemia History of present illness: Patient is a 87-year-old female seen in renal consultation for hypercalcemia. Patient's calcium level on admission was 11.9 and is down to 10.5 today. Renal function is at baseline. Patient presented to the hospital due to altered mental status and hallucinations. Patient's currently resting in bed but is not a very reliable historian. She is unsure of medications she takes. She denies taking any calcium supplementations. She does take a vitamin D supplementation was also taking hydrochlorothiazide for blood pressure outpatient. She denies any gross hematuria. She is currently receiving normal saline at 1 50 mL an hour. Patient states she does have history of malignancy but isn't able to recall what type. Denies vomiting or diarrhea. States oral intake has been fair. Hemodynamically stable. No fever or chills. Vital signs are stable. General: No acute distress. HEENT: Head exam is unremarkable. LUNGS: No audible rhonchi or wheezes. HEART: Rate and Rhythm are regular. ABDOMEN: Soft, nontender. EXTREMITITES: No edema. Past Medical History Past Medical History: COPD, Hyperlipidemia, Hypertension Additional Past Medical History / Comment(s): pulmonary fibrosis, bladder cancer History of Any Multi-Drug Resistant Organisms: None Reported Past Surgical History: Bowel Resection, Section, Cholecystectomy, Tubal Ligation Past Anesthesia/Blood Transfusion Reactions: No Reported Reaction Past Psychological History: No Psychological Hx Reported Smoking Status: Never smoker Past Alcohol Use History: None Reported Past Drug Use History: None Reported - Past Family History Son(s) Family Medical History: Cancer Sister(s) Family Medical History: Cancer Medications and Allergies Home Medications Medication Instructions Recorded Confirmed Type Atorvastatin [Lipitor] 20 mg PO DAILY@79912/23/20 10/25/22 History Verapamil HCl [Verapamil ER] 120 mg PO DAILY@79912/23/20 10/25/22 History lisinopriL [Zestril] 20 mg PO DAILY@79908/19/22 10/25/22 History Ipratropium-Albuterol Nebulize 3 ml INHALATION RT-Q6H PRN 09/19/22 10/25/22 History [Duoneb 0.5 mg-3 mg/3 ml Soln] hydroCHLOROthiazide [Hydrodiuril] 25 mg PO DAILY@79909/19/22 10/25/22 History Aspirin EC [Ecotrin Low Dose] 81 mg PO DAILY@79910/25/22 10/25/22 History Cholecalciferol [Vitamin D3 (25 50 mcg PO DAILY@79910/25/22 10/25/22 History Mcg = 1000 Iu)] Fluticasone Propion/Salmeterol 1 puff INHALATION RT-BID 10/25/22 10/25/22 History [Advair 250-50 Diskus] Multivit-Min/Iron/Folic/Lutein 1 tab PO DAILY@79910/25/22 10/25/22 History [Centrum Silver Women Tablet] Tamsulosin [Flomax] 0.4 mg PO DAILY@79910/25/22 10/25/22 History Allergies Allergy/AdvReac Type Severity Reaction Status Date / Time codeine AdvReac Hallucinati Verified 10/25/22 15:50 ons Physical Exam Vitals: Vital Signs Temp Pulse Pulse Resp BP BP Pulse Ox 10/26/22 10:05 62 10/26/22 09:49 70 97 10/26/22 08:12 94 L 10/26/22 08:00 97.3 F L 62 18 139/66 74 L 10/26/22 04:08 97.6 F 64 16 158/72 98 10/26/22 00:24 97.4 F L 58 L 16 150/65 98 10/25/22 19:23 97.5 F L 59 L 18 174/72 95 10/25/22 16:27 52 L 16 128/67 3 L 10/25/22 14:56 51 L 16 168/84 97 10/25/22 11:41 98.1 F 57 L 22 135/74 95 Intake and Output 10/25/22 10/26/22 10/26/22 22:59 06:59 14:59 Other: Voiding Method Diaper Diaper Diaper Incontinent Incontinent Incontinent # Voids 1 2 Weight 45.359 kg Results - Lab Results Most recent lab results Calcium 10.4 mg/dL (8.4-10.2) H 10/26/22 07:25 Calcium 10.5 mg/dL (8.4-10.2) H 10/26/22 07:25 Magnesium 1.3 mg/dL (1.6-2.3) L 10/26/22 07:25 10/26/22 07:25 10/26/22 07:25 Assessment and Plan Plan: Assessment: 1. Hypercalcemia secondary to vitamin D supplementation and thiazide diuretic. Improving with IV hydration. 2. Hypomagnesemia from poor intake and diuretic use. 3. Benign hypertension. Stable. Plan: Maintain IV fluids. Check vitamin D and PTH level. Check serum and urine immunofixation. Check PTH related peptide. Check TSH. Continue to hold thiazide diuretics and calcium/vitamin D supplementation. Replace magnesium. Thank you for the consultation. I will continue to follow the patient with you during her hospital stay.
[2022-10-26] MEDS: MAGNESIUM SULFATE-D5W PMX 1 GM in DEXTROSE/WATER 1 100ML.BAG IVPB SCH ×2 (12:13→17:28)
--- NOTE | 2022-10-26 14:18 | CT ---
EXAMINATION TYPE: CT chest wo con DATE OF EXAM: 10/26/2022 COMPARISON: HISTORY: Cavitary hilar mass/lesion history of mac infection CT DLP: 199.1 mGycm, Automated exposure control for dose reduction was used. CONTRAST: None TECHNIQUE: Axial images were obtained at 5 mm thick sections. Reconstructed images are reviewed on [employer] computer in the coronal plane. FINDINGS: Portion of the thyroid visualized is normal. There is a cavitary lesion with air-fluid level in the posterior right mid lung measuring 3.8 x 3.7 c m. More superiorly there are couple of small nodules in the posterior right upper lung field measurin g 0.8 and 0.5 cm. Image 13 on lung windows some pneumonitis changes in the right mid lung. There is a 0.7 cm nodule lateral right midlung. Image 27. Suspicious increased lung markings are in the latera l right lung base. Findings appear similar to the comparison of 05/11/2022. No enlarged mediastinal or hilar adenopathy is evident. The ascending aorta diameter at the level o f the main pulmonary artery is 4.1 cm. The main pulmonary artery diameter at the bifurcation is 3.3 cm. Vascular calcification is within the aorta. Some coronary artery calcifications present. Limited CT sections are obtained through the upper abdomen. Punctate nonobstructing renal stone is at the medial upper pole left kidney. IMPRESSIONS: 1. Cavitary lesion with an air-fluid level in the posterior right mid lung. Additional lung nodules a nd increased lung markings are within the right lung discussed above
--- NOTE | 2022-10-26 14:45 | P.HPIM ---
History of Present Illness H&P Date: 10/26/22 This is an 87 year old female with medical history of COPD, pulmonary fibrosis, hypertension, bladder cancer. Patient presents to the hospital sent in from [facility] with altered mental status having increased confusion and also hallucinations. Patient is confused at baseline. 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 Patient was not treated at that time. Brain CT shows age related atrophic and chronic small vessel ischemic change without acute intracranial process seen at this time. Chest xray showing similar parenchymal fibrotic changes with nonspecific 4.3 cm thick-walled cavitary lesion in the superior r ight lower lobe redemonstrated. Labs reveal white count of 10.9 which has normalized. Potassium is 5.2, calcium 11.9, magnesium 1.3. Kidney function is stable. Urinalysis showing no infection. Patient is admitted for confusion, elevated calcium level and lung mass. REVIEW OF SYSTEMS: CONSTITUTIONAL: No fever, no malaise, Reports fatigue HEENT: No recent visual problems or hearing problems. Denied any sore throat. CARDIOVASCULAR: No chest pain, orthopnea, PND, no palpitations, no syncope. PULMONARY: No shortness of breath, no cough, no hemoptysis. GASTROINTESTINAL: No diarrhea, no nausea, no vomiting, no abdominal pain. NEUROLOGICAL: No headaches, no weakness, no numbness. HEMATOLOGICAL: Denies any bleeding or petechiae. GENITOURINARY: Denies any burning micturition, frequency, or urgency. MUSCULOSKELETAL/RHEUMATOLOGICAL: Denies any joint pain, swelling, or any muscle pain. ENDOCRINE: Denies any polyuria or polydipsia. The rest of the 14-point review of systems is negative. PHYSICAL EXAMINATION: GENERAL: The patient is alert and oriented x1, not in any acute distress. Pale frail built elderly patient HEENT: Pupils are round and equally reacting to light. EOMI. No scleral icterus. No conjunctival pallor. Normocephalic, atraumatic. No pharyngeal erythema. No thyromegaly. CARDIOVASCULAR: S1 and S2 present. No murmurs, rubs, or gallops. PULMONARY: Faint scattered crackles ABDOMEN: Soft, nontender, nondistended, normoactive bowel sounds. No palpable organomegaly. MUSCULOSKELETAL: No joint swelling or deformity. EXTREMITIES: No cyanosis, clubbing, or pedal edema. NEUROLOGICAL: Gross neurological examination did not reveal any focal deficits. SKIN: No rashes. Assessment and Plan Assessment Altered mental status likely from metabolic encephalopathy Hyperkalemia Hypercalcemia Recent hospitalization and treatment for acute UTI Chronic hypoxic respiratory failure History of COPD/Pulmonary fibrosis Known 4.3 cm cavitary lesion right lower lobe Prior infection with mycobacteria chimaera History hypertension hx bladder cancer Hx colon cancer with resection Lifelong nonsmoker GI prophylaxis DVT prophylaxis Do Not Resuscitate/Do Not Intubate Plan Pulmonary/nephrology consultation Parathyroid hormone has been ordered Resume appropriate home medications Vitamin D3 discontinued Patient is being hydrated with normal saline ID consultation for known mycobacteria Further recommendations pending Repeat labs in AM The impression and plan of care has been dictated by Melissa Zuñiga Nurse Practitioner as directed. Dr. Ace MD I have performed a history and physical examination and medical decision making of this patient, discussed the same with the dictator, and agree with the dictators assessment and plan as written, documented as a scribe. Based on total visit time, I have performed more than 50% of this visit. Past Medical History Past Medical History: COPD, Hyperlipidemia, Hypertension Additional Past Medical History / Comment(s): pulmonary fibrosis, bladder cancer History of Any Multi-Drug Resistant Organisms: None Reported Past Surgical History: Bowel Resection, Section, Cholecystectomy, Tubal Ligation Past Anesthesia/Blood Transfusion Reactions: No Reported Reaction Past Psychological History: No Psychological Hx Reported Smoking Status: Never smoker Past Alcohol Use History: None Reported Past Drug Use History: None Reported - Past Family History Son(s) Family Medical History: Cancer Sister(s) Family Medical History: Cancer Medications and Allergies Home Medications Medication Instructions Recorded Confirmed Type Atorvastatin [Lipitor] 20 mg PO DAILY@79912/23/20 10/25/22 History Verapamil HCl [Verapamil ER] 120 mg PO DAILY@79912/23/20 10/25/22 History lisinopriL [Zestril] 20 mg PO DAILY@79908/19/22 10/25/22 History Ipratropium-Albuterol Nebulize 3 ml INHALATION RT-Q6H PRN 09/19/22 10/25/22 History [Duoneb 0.5 mg-3 mg/3 ml Soln] hydroCHLOROthiazide [Hydrodiuril] 25 mg PO DAILY@79909/19/22 10/25/22 History Aspirin EC [Ecotrin Low Dose] 81 mg PO DAILY@0810/25/22 10/25/22 History Cholecalciferol [Vitamin D3 (25 50 mcg PO DAILY@79910/25/22 10/25/22 History Mcg = 1000 Iu)] Fluticasone Propion/Salmeterol 1 puff INHALATION RT-BID 10/25/22 10/25/22 History [Advair 250-50 Diskus] Multivit-Min/Iron/Folic/Lutein 1 tab PO DAILY@79910/25/22 10/25/22 History [Centrum Silver Women Tablet] Tamsulosin [Flomax] 0.4 mg PO DAILY@79910/25/22 10/25/22 History Allergies Allergy/AdvReac Type Severity Reaction Status Date / Time codeine AdvReac Hallucinati Verified 10/25/22 15:50 ons Physical Exam Vitals: Vital Signs Temp Pulse Pulse Resp BP BP Pulse Ox 10/26/22 08:12 94 L 10/26/22 08:00 97.3 F L 62 18 139/66 74 L 10/26/22 04:08 97.6 F 64 16 158/72 98 10/26/22 00:24 97.4 F L 58 L 16 150/65 98 10/25/22 19:23 97.5 F L 59 L 18 174/72 95 10/25/22 16:27 52 L 16 128/67 3 L 10/25/22 14:56 51 L 16 168/84 97 10/25/22 11:41 98.1 F 57 L 22 135/74 95 Intake and Output 10/25/22 10/26/22 10/26/22 22:59 06:59 14:59 Other: Voiding Method Diaper Diaper Incontinent Incontinent # Voids 1 2 Weight 45.359 kg Results CBC & Chem 7: 10/26/22 07:25 10/26/22 07:25 Labs: Abnormal Lab Results - Last 24 Hours (Table) 10/25/22 10/25/22 10/25/22 Range/Units 15:17 15:17 15:17 WBC 10.9 H (3.8-10.6) k/uL Hct 46.1 H (34.0-46.0) % Plt Count 481 H (150-450) k/uL Neutrophils # 8.5 H (1.3-7.7) k/uL VBG pCO2 66 H (37-51) mmHg VBG HCO3 38 H (24-28) mmol/L Potassium 5.2 H (3.5-5.1) mmol/L Chloride 94 L (98-107) mmol/L Carbon Dioxide 40 H (22-30) mmol/L BUN 28 H (7-17) mg/dL Calcium 11.9 H (8.4-10.2) mg/dL Magnesium (1.6-2.3) mg/dL 10/26/22 10/26/22 10/26/22 Range/Units 07:25 07:25 07:25 WBC (3.8-10.6) k/uL Hct (34.0-46.0) % Plt Count 475 H (150-450) k/uL Neutrophils # 8.0 H (1.3-7.7) k/uL VBG pCO2 (37-51) mmHg VBG HCO3 (24-28) mmol/L Potassium (3.5-5.1) mmol/L Chloride (98-107) mmol/L Carbon Dioxide 32 H (22-30) mmol/L BUN 21 H (7-17) mg/dL Calcium 10.4 H 10.5 H (8.4-10.2) mg/dL Magnesium 1.3 L (1.6-2.3) mg/dL Thrombosis Risk Factor Assmnt - Choose All That Apply Any of the Below Risk Factors Present?: Yes Each Factor Represents 1 point: Abnormal pulmonary function (COPD) Other Risk Factors: Yes Each Risk Factor Represents 3 Points: Age 75 years or older Other congenital or acquired thrombophilia - If yes, enter type in comment: No Thrombosis Risk Factor Assessment Total Risk Factor Score: 4 Thrombosis Risk Factor Assessment Level: Moderate Risk Assessment and Plan Time with Patient: Less than 30
[2022-10-26 20:39] LABS: Protein, Total 6.7 g/dL (6.2-8.2)
--- NOTE | 2022-10-26 23:33 | P.CONS ---
History of Present Illness - Reason for Consult Consult date: 10/26/22 History of MAC infection Requesting physician: Makayla David - Chief Complaint Confusion and hallucination x few days - History of Present Illness Patient is 87-year-old female with a past medical history significant for COPD hypertension hyperlipidemia pulmonary fibrosis and this patient also have a history of right lower lobe cavitary lesion for the patient did have bronchoscopy done on 12/25/2020 culture subsequently finalized with MYESHA patient did have a follow-up office visit on 03/30/2021 patient was not symptomatic and high risk of drug toxicity patient was advised a repeat CAT scan and if there was any progression of the disease patient will be offered treatment however the patient was subsequently lost to follow-up patient was recently admitted at this facility end august/patient now presenting to the hospital beginning of September 2022 for UTI patient at that time was evaluated in consultation and detailed discussion with the patient daughter we did advise repeat CT of the chest however the patient daughter refused the CAT scan and did not want the patient to undergo any further investigation and treatment for it,, patient now presenting to the hospital for evaluation of increased confusion and hallucination with symptom has been persistently getting worse over the last few days no clear history of any fever or any chills no worsening cough or sputum production no vomiting or diarrhea has been reported patient on presentation to the hospital was afebrile patient did have a white count of 10.9 with a left shift kidney function has been normal liver enzymes are normal urine has been negative patient did have a chest x-ray similar chronic parenchymal fibrotic changes nonspecific with 4.3 cm thick-walled cavitary lesion in the superior right lower lobe due to months treated infectious he was consulted for further management the patient daughter was at the bedside and I have detailed discussion with her however she has been refusing any repeat CAT scan or any further work-up for the pulmonary MYESHA infection Review of Systems Positive point has been mentioned in the HPI rest of the systems are negative Past Medical History Past Medical History: COPD, Hyperlipidemia, Hypertension Additional Past Medical History / Comment(s): pulmonary fibrosis, bladder cancer History of Any Multi-Drug Resistant Organisms: None Reported Past Surgical History: Bowel Resection, Section, Cholecystectomy, Tubal Ligation Past Anesthesia/Blood Transfusion Reactions: No Reported Reaction Past Psychological History: No Psychological Hx Reported Smoking Status: Never smoker Past Alcohol Use History: None Reported Past Drug Use History: None Reported - Past Family History Son(s) Family Medical History: Cancer Sister(s) Family Medical History: Cancer Medications and Allergies Home Medications Medication Instructions Recorded Confirmed Type Atorvastatin [Lipitor] 20 mg PO DAILY@0812/23/20 10/25/22 History Verapamil HCl [Verapamil ER] 120 mg PO DAILY@0812/23/20 10/25/22 History lisinopriL [Zestril] 20 mg PO DAILY@0808/19/22 10/25/22 History Ipratropium-Albuterol Nebulize 3 ml INHALATION RT-Q6H PRN 09/19/22 10/25/22 History [Duoneb 0.5 mg-3 mg/3 ml Soln] Aspirin EC [Ecotrin Low Dose] 81 mg PO DAILY@79910/25/22 10/25/22 History Cholecalciferol [Vitamin D3 (25 50 mcg PO DAILY@0810/25/22 10/25/22 History Mcg = 1000 Iu)] Fluticasone Propion/Salmeterol 1 puff INHALATION RT-BID 10/25/22 10/25/22 History [Advair 250-50 Diskus] Multivit-Min/Iron/Folic/Lutein 1 tab PO DAILY@79910/25/22 10/25/22 History [Centrum Silver Women Tablet] Tamsulosin [Flomax] 0.4 mg PO DAILY@0810/25/22 10/25/22 History Azithromycin [Zithromax] 500 mg IV DAILY 6 Days #30 each 10/31/22 Rx Ethambutol [Myambutol] 800 mg PO DAILY 6 Days #30 tablet 10/31/22 Rx rifAMPin [Rifampin] 600 mg PO DAILY 6 Days #60 cap 10/31/22 Rx Budesonide-Formot 160-4.5 Mcg 2 puff INHALATION RT-BID each 11/01/22 Rx [Symbicort 160-4.5 Mcg Inhaler] hydrALAZINE HCL [Apresoline] 50 mg PO TID tab 11/01/22 Rx Allergies Allergy/AdvReac Type Severity Reaction Status Date / Time codeine AdvReac Hallucinati Verified 10/25/22 15:50 ons Physical Exam Vitals: Vital Signs Temp Pulse Pulse Resp BP BP Pulse Ox 10/26/22 11:47 97.6 F 63 16 110/54 98 10/26/22 10:05 62 10/26/22 09:49 70 97 10/26/22 08:12 94 L 10/26/22 08:00 97.3 F L 62 18 139/66 74 L 10/26/22 04:08 97.6 F 64 16 158/72 98 10/26/22 00:24 97.4 F L 58 L 16 150/65 98 10/25/22 19:23 97.5 F L 59 L 18 174/72 95 10/25/22 16:27 52 L 16 128/67 3 L 10/25/22 14:56 51 L 16 168/84 97 Intake and Output 10/25/22 10/26/22 10/26/22 22:59 06:59 14:59 Other: Voiding Method Diaper Diaper Diaper Incontinent Incontinent Incontinent # Voids 1 2 Weight 45.359 kg GENERAL DESCRIPTION: Elderly female lying in bed, no distress. No tachypnea or accessory muscle of respiration use. HEENT: Shows Pallor , no scleral icterus. Oral mucous membrane is dry. No pharyngeal erythema or thrush NECK: Trachea central, no thyromegaly. LUNGS: Unlabored breathing. Coarse breast sounds bilaterally HEART: S1, S2, regular rate and rhythm. No loud murmur ABDOMEN: Soft, no tenderness , guarding or rigidity, no organomegaly EXTREMITIES: No edema of feet. SKIN: No rash, no masses palpable. NEUROLOGICAL: The patient is awake, alert, oriented x3, mood and affect normal. Results CBC & Chem 7: 11/01/22 07:03 10/31/22 05:55 Labs: Abnormal Lab Results - Last 24 Hours (Table) 10/25/22 10/25/22 10/25/22 Range/Units 15:17 15:17 15:17 WBC 10.9 H (3.8-10.6) k/uL Hct 46.1 H (34.0-46.0) % Plt Count 481 H (150-450) k/uL Neutrophils # 8.5 H (1.3-7.7) k/uL VBG pCO2 66 H (37-51) mmHg VBG HCO3 38 H (24-28) mmol/L Potassium 5.2 H (3.5-5.1) mmol/L Chloride 94 L (98-107) mmol/L Carbon Dioxide 40 H (22-30) mmol/L BUN 28 H (7-17) mg/dL Calcium 11.9 H (8.4-10.2) mg/dL Magnesium (1.6-2.3) mg/dL PTH Intact (14.0-72.0) pg/mL 10/26/22 10/26/22 10/26/22 Range/Units 07:25 07:25 07:25 WBC (3.8-10.6) k/uL Hct (34.0-46.0) % Plt Count 475 H (150-450) k/uL Neutrophils # 8.0 H (1.3-7.7) k/uL VBG pCO2 (37-51) mmHg VBG HCO3 (24-28) mmol/L Potassium (3.5-5.1) mmol/L Chloride (98-107) mmol/L Carbon Dioxide (22-30) mmol/L BUN (7-17) mg/dL Calcium 10.4 H (8.4-10.2) mg/dL Magnesium (1.6-2.3) mg/dL PTH Intact 13.9 L (14.0-72.0) pg/mL 10/26/22 Range/Units 07:25 WBC (3.8-10.6) k/uL Hct (34.0-46.0) % Plt Count (150-450) k/uL Neutrophils # (1.3-7.7) k/uL VBG pCO2 (37-51) mmHg VBG HCO3 (24-28) mmol/L Potassium (3.5-5.1) mmol/L Chloride (98-107) mmol/L Carbon Dioxide 32 H (22-30) mmol/L BUN 21 H (7-17) mg/dL Calcium 10.5 H (8.4-10.2) mg/dL Magnesium 1.3 L (1.6-2.3) mg/dL PTH Intact (14.0-72.0) pg/mL Assessment and Plan (1) Cavitary lesion of lung Status: Acute Code(s): J98.4 - OTHER DISORDERS OF LUNG SNOMED Code(s): 648485469 (2) MYESHA (mycobacterium avium-intracellulare) Status: Acute Code(s): A31.0 - PULMONARY MYCOBACTERIAL INFECTION SNOMED Code(s): 581999850 Plan: 1patient is 87-year-old female with a past medical history sniffing and for right lower lobe cavitary lesion for which the patient did have a bronchoscopy back in 2020 and cultures were positive for MYESHA however the patient was subsequently lost to follow-up and on her last admission to the hospital the patient and daughter did not want any further investigation and she refused CAT scan of the chest which was ordered and per discussion with her she does not want any further investigation to be done or any treatment offered 2-at this time we will follow the familyand do not order any further work-up for it, however if the family changes their mind we will be more than happy to reevaluate and offer any treatment however keeping in mind her advanced age and multiple comorbidities not sure the prevention will be able to tolerate them We will follow on clinical condition and cultures to further adjust medication if needed Thank you for this consultation we will follow the patient along with you Time with Patient: Greater than 30
[2022-10-27] MEDS: SODIUM CHLORIDE 0.9% 1,000 ML IV SCH ×3 (02:55→21:12)
[2022-10-27] MEDS: methylPREDNISolone SOD SUCCI 125 MG/2 ML VIAL IV SCH (05:20)
[2022-10-27] MEDS ORDERED: CHOLECALCIFEROL 25 MCG (1000 IU) TABLET PO SCH (08:00)
[2022-10-27] MEDS ORDERED: VERAPAMIL SR 120 MG TABLET.ER PO SCH (08:00)
[2022-10-27 08:32] LABS: Basophils % (A) 0 %; Eosinophils % (A) 0 %; HCT 41.8 % (34.0-46.0); HGB 13.2 gm/dL (11.4-16.0); Lymphocytes # (A) 0.6 k/uL (1.0-4.8); Lymphocytes % (A) 3 %; MCH 29.2 pg (25.0-35.0); MCHC 31.6 g/dL (31.0-37.0); MCV 92.4 fL (80.0-100.0); Mean Platelet Volume 9.1; Monocytes # (A) 0.5 k/uL (0-1.0); Monocytes % (A) 2 %; Neutrophils # (A) 18.9 k/uL (1.3-7.7); Neutrophils % (A) 94 %; Platelet Count 508 k/uL (150-450); RBC 4.52 m/uL (3.80-5.40); RDW 14.8 % (11.5-15.5); WBC 20.1 k/uL (3.8-10.6)
[2022-10-27] MEDS: IPRATROPIUM 0.5 MG/2.5 ML NEBU INHALATION SCH ×4 (08:42→21:17)
[2022-10-27] MEDS: ALBUTEROL NEBULIZED 2.5 MG/3 ML INHALATION SCH ×4 (08:42→21:16)
[2022-10-27] MEDS: SYMBICORT 160-4.5 MCG INHALER INHALATION SCH ×2 (08:43→21:17)
[2022-10-27 08:51] LABS: ALT 18 U/L (4-34); AST 25 U/L (14-36); African American GFR (CKD) >90 (>60 ml/min/1.73 sqM); Albumin 3.5 g/dL (3.5-5.0); Alkaline Phosphatase 67 U/L (38-126); Anion Gap 5 mmol/L; Blood Urea Nitrogen 16 mg/dL (7-17); Calcium 9.2 mg/dL (8.4-10.2); Carbon Dioxide 31 mmol/L (22-30); Chloride 103 mmol/L (98-107); Glucose 171 mg/dL (74-99); Magnesium 1.8 mg/dL (1.6-2.3); Non-African American GFR(CKD) 81 (>60 ml/min/1.73 sqM); Potassium 3.9 mmol/L (3.5-5.1); Sodium 139 mmol/L (137-145); Total Bilirubin 0.3 mg/dL (0.2-1.3); Total Protein 6.5 g/dL (6.3-8.2)
[2022-10-27] MEDS: ASPIRIN 81 MG PO SCH (09:14)
[2022-10-27] MEDS: TAMSULOSIN 0.4 MG CAP.ER.24H PO SCH (09:14)
[2022-10-27] MEDS: lisinopriL 20 MG TAB PO SCH (09:14)
[2022-10-27] MEDS: ATORVASTATIN 20 MG TAB PO SCH (09:14)
[2022-10-27] MEDS: hydrALAZINE HCL 25 MG TAB PO SCH (09:14)
--- NOTE | 2022-10-27 10:41 | P.PN ---
Subjective Patient is seen in follow-up for hypercalcemia. Calcium level now normal. Hemodynamically stable. No vomiting or diarrhea. Vital signs are stable. General: No acute distress. HEENT: Head exam is unremarkable. LUNGS: No audible rhonchi or wheezes. HEART: Rate and Rhythm are regular. ABDOMEN: Soft, nontender. EXTREMITITES: No edema. Objective - Vital Signs Vital signs: Vital Signs Temp 97.5 F L 10/27/22 09:10 Pulse 84 10/27/22 09:10 Resp 16 10/27/22 09:10 BP 162/69 10/27/22 09:10 Pulse Ox 95 10/27/22 09:10 FiO2 Intake & Output 10/26/22 10/27/22 10/27/22 18:59 06:59 18:59 Intake Total 540 118 Output Total 575 Balance 540 -575 118 Intake: Oral 540 118 Output: Urine 575 Other: Voiding Method Diaper Diaper Incontinent Incontinent # Voids 2 1 # Bowel Movements 1 - Labs CBC & Chem 7: 10/27/22 06:57 10/27/22 06:57 Labs: Abnormal Lab Results - Last 24 Hours (Table) 10/26/22 10/27/22 10/27/22 Range/Units 07:25 06:57 06:57 WBC 20.1 H (3.8-10.6) k/uL Plt Count 508 H (150-450) k/uL Neutrophils # 18.9 H (1.3-7.7) k/uL Lymphocytes # 0.6 L (1.0-4.8) k/uL Carbon Dioxide 31 H (22-30) mmol/L Glucose 171 H (74-99) mg/dL PTH Intact 13.9 L (14.0-72.0) pg/mL Microbiology - Last 24 Hours (Table) 10/26/22 07:25 Blood Culture - Preliminary Blood No Growth after 24 hours Assessment and Plan Plan: Assessment: 1. Hypercalcemia secondary to vitamin D supplementation and thiazide diuretic. Improving with IV hydration. Calcium level 9.2 today. Albumin 3.5. PTH appropriately suppressed. TSH normal. Vitamin D level LXVI. 2. Hypomagnesemia from poor intake and diuretic use. Replaced. Improved. 3. Benign hypertension. 4. Posterior right midlung cavitary lesion. ID and pulmonology following. Plan: Maintain IV fluids - decrease rate to 75 mL an hour. Follow-up serum and urine immunofixation PTH related peptide. Continue to hold thiazide diuretics and calcium/vitamin D supplementation. Increase dose of hydralazine.
[2022-10-27 13:15] LABS: Albumin 3.28 g/dL (3.80-4.90); Gamma Globulin 1.15 g/dL (0.70-1.50)
--- NOTE | 2022-10-27 14:02 | P.PN ---
Subjective Progress Note Date: 10/27/22 This is an 87 year old female with medical history of COPD, pulmonary fibrosis, hypertension, bladder cancer. Patient presents to the hospital sent in from [facility] with altered mental status having increased confusion and also hallucinations. Patient is confused at baseline. 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 Patient was not treated at that time. Brain CT shows age related atrophic and chronic small vessel ischemic change without acute intracranial process seen at this time. Chest xray showing similar parenchymal fibrotic changes with nonspecific 4.3 cm thick-walled cavitary lesion in the superior right lower lobe redemonstrated. Labs reveal white count of 10.9 which has normalized. Potassium is 5.2, calcium 11.9, magnesium 1.3. Kidney function is stable. Urinalysis showing no infection. Patient is admitted for confusion, elevated calcium level and lung mass. 10/27/2022 Patient evaluated in follow up. No acute events overnight. Patient is more awake and alert today. She is confused. She remains on nasal cannula on 3L, patient does wear 2L of chronic oxygen. Family reports issues with patient removed oxygen where she resides and becoming hypoxic. There is no reported history of dementia. Patient was up in the chair today and did remove oxygen and take herself off the chair alarm and was found on knees with no injury sustained. Patient reports that she was "trying to kick a ball." Family feels her mentation has improved since yesterday. Not at baseline. Had a Chest CT done showing cavitary lesion with an air-filled fluid level in the posterior right mid lung. Additional lung nodules and increased lung markings are within the right lung. Patient was on IV solumedrol 60 mg Q6 which has been decreased. White count up to 20 likely from steroid use. Potassium 3.9 today, kidney function stable. Review of Systems Constitutional: Denied any fatigue denied any fever. Cardio vascular: denied any chest pain, palpitations Gastrointestinal: denied any nausea, vomiting, diarrhea Pulmonary: Denied any shortness of breath cough Neurologic denied any new focal deficits All inpatient medications were reviewed and appropriate changes in these medications as dictated in the interval history and assessment and plan. PHYSICAL EXAMINATION: GENERAL: The patient is alert and oriented x1-2, not in any acute distress. Pale frail built elderly patient, confused but pleasant. HEENT: Pupils are round and equally reacting to light. EOMI. No scleral icterus. No conjunctival pallor. Normocephalic, atraumatic. No pharyngeal erythema. No thyromegaly. CARDIOVASCULAR: S1 and S2 present. No murmurs, rubs, or gallops. PULMONARY: Faint scattered crackles ABDOMEN: Soft, nontender, nondistended, normoactive bowel sounds. No palpable organomegaly. MUSCULOSKELETAL: No joint swelling or deformity. EXTREMITIES: No cyanosis, clubbing, or pedal edema. NEUROLOGICAL: Gross neurological examination did not reveal any focal deficits. SKIN: No rashes. Assessment and Plan Assessment Altered mental status likely from metabolic encephalopathy secondary to hypercalcemia, improving. Frequent falls at home and fell today 10/27 Hyperkalemia resolved Hypercalcemia from Vitamin D supplement, improved. Recent hospitalization and treatment for acute UTI Chronic hypoxic respiratory failure History of COPD/Pulmonary fibrosis Known 4.3 cm cavitary lesion right lower lobe and bronchoscopy showing mycobacteria chimaera History hypertension hx bladder cancer Hx colon cancer with resection Lifelong nonsmoker GI prophylaxis DVT prophylaxis Do Not Resuscitate/Do Not Intubate Plan Pulmonary/nephrology consultation Vitamin D3 discontinued and thiazide diuretic discontinued Patient is being hydrated with normal saline rate decreased to 75 mls IV steroids are decreased and follow up white count tomorrow. Hydralazine increased for blood pressure Patient/Family refusing further testing and treatment for MYESHA infection. PT/OT consultation most likely subacute rehab on discharge. The impression and plan of care has been dictated by Melissa Zuñiga, Nurse Practitioner as directed. Dr. Ace MD I have performed a history and physical examination and medical decision making of this patient, discussed the same with the dictator, and agree with the dictators assessment and plan as written, documented as a scribe. Based on total visit time, I have performed more than 50% of this visit. Objective - Vital Signs Vital signs: Vital Signs Temp 97.5 F L 10/27/22 09:10 Pulse 68 10/27/22 11:49 Resp 16 10/27/22 09:10 BP 162/69 10/27/22 09:10 Pulse Ox 95 10/27/22 09:10 FiO2 Intake & Output 10/26/22 10/27/22 10/27/22 18:59 06:59 18:59 Intake Total 540 118 Output Total 575 Balance 540 -575 118 Intake: Oral 540 118 Output: Urine 575 Other: Voiding Method Diaper Diaper Diaper Incontinent Incontinent Incontinent # Voids 2 1 # Bowel Movements 1 - Labs CBC & Chem 7: 10/27/22 06:57 10/27/22 06:57 Labs: Abnormal Lab Results - Last 24 Hours (Table) 10/27/22 10/27/22 Range/Units 06:57 06:57 WBC 20.1 H (3.8-10.6) k/uL Plt Count 508 H (150-450) k/uL Neutrophils # 18.9 H (1.3-7.7) k/uL Lymphocytes # 0.6 L (1.0-4.8) k/uL Carbon Dioxide 31 H (22-30) mmol/L Glucose 171 H (74-99) mg/dL C-Reactive Protein 2.0 H (<1.0) mg/dL Microbiology - Last 24 Hours (Table) 10/26/22 07:25 Blood Culture - Preliminary Blood No Growth after 24 hours Assessment and Plan Time with Patient: Less than 30
--- NOTE | 2022-10-27 14:49 | P.PN ---
Subjective Progress Note Date: 10/27/22 Principal diagnosis: Acute on chronic hypoxic and hypercapnic respiratory failure with altered mental status I'm seeing this patient in new consultation today 10/26/2022 for a suspected lung mass found on imaging. 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 Patient reportedly lives at [facility]. She does follow with Dr. Glasgow in the office for her COPD and pulmonary fibrosis. Patient did have a recent hospitalization for a urinary tract infection and COPD exacerbation September 19 through September 24. Patient is currently alert and pleasantly confused. She is a poor historian. She is lying in bed, on 2 L nasal cannula, in no acute distress. Apparently, patient presented to the emergency room with this confusion and hallucinations over the past few days. Patient denies any pulmonary complaints or fever. Brain CT without contrast was negative for any acute intracranial processes. Chest x-ray on arrival showed chronic parenchymal fibrotic changes along with a nonspecific 4.3 cm thick walled cavitary lesion in the right superior lower lobe which was redemonstrated on previous exam. No acute cardiopulmonary processes seen. Patient had undergone bronchoscopy with Dr. 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 Patient did receive treatment per infectious disease. CBC on arrival showed a WBC count of 10.9, hemoglobin 14.8, hematocrit 46.1, platelets 41,000. Patient's ABG showed a pH of 7.37, pCO2 of 66. BMP on arrival shows sodium 138, potassium 5.2, chloride 94, serum CO2 chronically elevated at 40, BUN 28, creatinine 0.7, glucose 99. Patient's calcium was mildly elevated at 11.9. She denies any bone pain or known active malignancies. Pro calcitonin level was mildly elevated at 0.1. Urinalysis did not suggest urinary tract infection. Patient is afebrile. Normal saline is infusing at 100 mL per hour. Vital signs are stable at this time. Patient was reevaluated today on 10/27/2022, doing well, not in any distress, she is on 3 L nasal cannula and O2 sats is 94%. Patient was made aware of the results of her CT of the chest, there is a cavitary lesion in the right lung, with air fluid level, it is posteriorly, it could be a lung abscess or could be a malignant lesion. I favor lung abscess, has been present for quite some time, it is nothing new patient made aware of the findings, and extremely reluctant to have any intervention including diagnostic bronchoscopy or CT-guided needle aspiration of the abscess. Considering her overall status, mostly supportive care measures are recommended. Pro calcitonin level is 0.08. Calcium is 9.2 and her PTH is normal. WBC count is 20.1. Patient was seen by infectious disease, and notes from infectious disease was noted and reviewed/appreciated. Objective - Vital Signs Vital signs: Vital Signs Temp 97.5 F L 10/27/22 09:10 Pulse 90 10/27/22 12:17 Resp 16 10/27/22 12:17 BP 174/79 10/27/22 12:17 Pulse Ox 94 L 10/27/22 12:17 FiO2 Intake & Output 10/26/22 10/27/22 10/27/22 18:59 06:59 18:59 Intake Total 540 236 Output Total 575 Balance 540 -575 236 Intake: Oral 540 236 Output: Urine 575 Other: Voiding Method Diaper Diaper Diaper Incontinent Incontinent Incontinent # Voids 2 1 # Bowel Movements 1 - Exam Physical Exam: Revealed a 87-year-old female in no distress. Head: Atraumatic, normocephalic. HEENT:[Neck is supple.] [No neck masses.] [No thyromegaly.] [No JVD.] Chest: [Symmetrical chest expansion, crackles at the bases no rhonchi no wheezes] Cardiac Exam: [Normal S1 and S2, no S3 gallop, no murmur.] Abdomen: [Soft, nontender, no megaly, no rebound, no guarding, normal bowel sounds.] Extremities: [No clubbing, no edema, no cyanosis.] Neurological Exam: [No focal neurologic deficit.] - Labs CBC & Chem 7: 10/27/22 06:57 10/27/22 06:57 Labs: Abnormal Lab Results - Last 24 Hours (Table) 10/26/22 10/27/22 10/27/22 Range/Units 11:50 06:57 06:57 WBC 20.1 H (3.8-10.6) k/uL Plt Count 508 H (150-450) k/uL Neutrophils # 18.9 H (1.3-7.7) k/uL Lymphocytes # 0.6 L (1.0-4.8) k/uL Carbon Dioxide 31 H (22-30) mmol/L Glucose 171 H (74-99) mg/dL C-Reactive Protein 2.0 H (<1.0) mg/dL Albumin (PEP) 3.28 L (3.80-4.90) g/dL Microbiology - Last 24 Hours (Table) 10/26/22 07:25 Blood Culture - Preliminary Blood No Growth after 24 hours Assessment and Plan Assessment: Impression: Acute on chronic hypoxic and hypercapnic respiratory failure Acute hypercalcemia, could be related to underlying malignancy Right lung cavitary lesion, likely infectious in nature although the possibility of malignancy is not entirely ruled out could be a cavitating carcinoma. Acute toxic metabolic encephalopathy with mental status change, resolved. Could be related to above also be related to hypercalcemia on presentation Benign essential hypertension Dyslipidemia History of bowel resection Recommendation: Continue present supportive care measures Continue bronchodilators Continue steroids, transition to prednisone. Continue IV hydration Patient does not like any heroic measures or diagnostic measures including bronchoscopy or CT-guided needle aspiration of the cavitary lesion in the right lung Will recommend discharge home and follow up on outpatient basis Antibiotics as per infectious disease on the case Time with Patient: Less than 30
[2022-10-27] MEDS: hydrALAZINE HCL 50 MG TAB PO SCH ×2 (17:26→21:12)
--- NOTE | 2022-10-27 17:58 | P.PN ---
Subjective Progress Note Date: 10/27/22 Principal diagnosis: Cavitatory lung lesion/MYESHA Patient is 87-year-old female with a past medical history significant for COPD hypertension hyperlipidemia pulmonary fibrosis and this patient also have a history of right lower lobe cavitary lesion for the patient did have bronchoscopy done on 12/25/2020 culture subsequently finalized with MYESHA , patient subsequently lost for follow-up with his evaluation in the hospital for UTI at that point Daughter has refused CAT scan patient did have CT of the chest completed on 10/26/2022,Which did shows cavitatory lesion with air-fluid level posterior right mid lung condition lung nodules increased lung markings On today's evaluation that is 10/27/2022, the patient denies having any fever or any chills, the patient is more awake and alert today, the patient is breathing comfortably on nasal cannula oxygen denies any chest pain she did have a cough production, no abdominal pain and no diarrhea Objective - Vital Signs Vital signs: Vital Signs Temp 97.5 F L 10/27/22 09:10 Pulse 90 10/27/22 12:17 Resp 16 10/27/22 12:17 BP 174/79 10/27/22 12:17 Pulse Ox 94 L 10/27/22 12:17 FiO2 Intake & Output 10/26/22 10/27/22 10/27/22 18:59 06:59 18:59 Intake Total 540 236 Output Total 575 Balance 540 -575 236 Intake: Oral 540 236 Output: Urine 575 Other: Voiding Method Diaper Diaper Diaper Incontinent Incontinent Incontinent # Voids 2 1 # Bowel Movements 1 - Exam GENERAL DESCRIPTION: An elderly female lying in bed in no distress RESPIRATORY SYSTEM: Unlabored breathing , coarse breath sounds bilaterally HEART: S1 S2 regular rate and rhythm , ABDOMEN: Soft , no tenderness EXTREMITIES: No edema feet - Labs CBC & Chem 7: 10/27/22 06:57 10/27/22 06:57 Labs: Abnormal Lab Results - Last 24 Hours (Table) 10/27/22 10/27/22 Range/Units 06:57 06:57 WBC 20.1 H (3.8-10.6) k/uL Plt Count 508 H (150-450) k/uL Neutrophils # 18.9 H (1.3-7.7) k/uL Lymphocytes # 0.6 L (1.0-4.8) k/uL Carbon Dioxide 31 H (22-30) mmol/L Glucose 171 H (74-99) mg/dL C-Reactive Protein 2.0 H (<1.0) mg/dL Microbiology - Last 24 Hours (Table) 10/26/22 07:25 Blood Culture - Preliminary Blood No Growth after 24 hours Assessment and Plan (1) Cavitary lesion of lung Current Visit: Yes Status: Acute Code(s): J98.4 - OTHER DISORDERS OF LUNG SNOMED Code(s): 745464623 (2) MYESHA (mycobacterium avium-intracellulare) Current Visit: Yes Status: Acute Code(s): A31.0 - PULMONARY MYCOBACTERIAL INFECTION SNOMED Code(s): 554086215 Plan: 1patient is 87-year-old female with a past medical history sniffing and for right lower lobe cavitary lesion for which the patient did have a bronchoscopy back in 2020 and cultures were positive for MYESHA however the patient was subsequently lost to follow-up and on her last admission to the hospital the patient and daughter did not want any further investigation and she refused CAT scan of the chest which was ordered and per discussion with her she does not want any further investigation to be done or any treatment offered as of 10/26/2022 2- patient did have CT of the chest on 10/26/2022 which did shows right mid lung cavitatory lesion with air-fluid level concern for possible abscess however the patient is currently not running any fever did have a normal pro-calcitonin clinically doubt bacterial pneumonia or abscess and more likely dealing with MYESHA infection for the patient daughter has been refusing treatment, hence we'll hold on adding any treatment for MYESHA at this point 3-leukocytosis more likely steroid related
[2022-10-27] MEDS: methylPREDNISolone SOD SUCCI 40 MG/ML 1 ML VIAL IV SCH (21:12)
[2022-10-28] MEDS: hydrALAZINE HCL 20 MG/ML 1 ML VIAL IVP PRN (01:17)
[2022-10-28 07:30] LABS: HCT 40.7 % (34.0-46.0); MCH 29.6 pg (25.0-35.0); MCHC 31.9 g/dL (31.0-37.0); MCV 92.7 fL (80.0-100.0); Mean Platelet Volume 8.6; Platelet Count 511 k/uL (150-450); RBC 4.39 m/uL (3.80-5.40); RDW 15.1 % (11.5-15.5); WBC 24.2 k/uL (3.8-10.6)
[2022-10-28] MEDS: SYMBICORT 160-4.5 MCG INHALER INHALATION SCH ×2 (07:51→21:33)
[2022-10-28] MEDS: IPRATROPIUM 0.5 MG/2.5 ML NEBU INHALATION SCH ×4 (07:51→21:32)
[2022-10-28] MEDS: ALBUTEROL NEBULIZED 2.5 MG/3 ML INHALATION SCH ×4 (07:51→21:33)
[2022-10-28 08:08] LABS: African American GFR (CKD) >90 (>60 ml/min/1.73 sqM); Anion Gap 7 mmol/L; Blood Urea Nitrogen 16 mg/dL (7-17); Calcium 8.9 mg/dL (8.4-10.2); Carbon Dioxide 28 mmol/L (22-30); Chloride 106 mmol/L (98-107); Glucose 142 mg/dL (74-99); Magnesium 1.7 mg/dL (1.6-2.3); Non-African American GFR(CKD) 81 (>60 ml/min/1.73 sqM); Sodium 141 mmol/L (137-145)
[2022-10-28] MEDS: lisinopriL 20 MG TAB PO SCH (09:40)
[2022-10-28] MEDS: ASPIRIN 81 MG PO SCH (09:40)
[2022-10-28] MEDS: ATORVASTATIN 20 MG TAB PO SCH (09:41)
[2022-10-28] MEDS: TAMSULOSIN 0.4 MG CAP.ER.24H PO SCH (09:41)
[2022-10-28] MEDS: hydrALAZINE HCL 50 MG TAB PO SCH ×3 (09:42→20:51)
[2022-10-28] MEDS ORDERED: FUROSEMIDE 10 MG/ML 2 ML VIAL IV ONE (10:00)
--- NOTE | 2022-10-28 10:25 | P.PN ---
Subjective Patient is seen in follow-up for hypercalcemia. Calcium level now normal. Hemodynamically stable. No vomiting or diarrhea. Patient fell yesterday and has been more confused. Sitter at bedside. Vital signs are stable. General: No acute distress. HEENT: Head exam is unremarkable. LUNGS: Rhonchi at bases. HEART: Rate and Rhythm are regular. ABDOMEN: Soft, nontender. EXTREMITITES: No edema. Objective - Vital Signs Vital signs: Vital Signs Temp 97.6 F 10/28/22 09:34 Pulse 97 10/28/22 09:34 Resp 16 10/28/22 09:34 BP 159/68 10/28/22 09:34 Pulse Ox 91 L 10/28/22 09:34 FiO2 Intake & Output 10/27/22 10/28/22 10/28/22 18:59 06:59 18:59 Intake Total 236 240 Balance 236 240 Intake: Oral 236 240 Other: Voiding Method Diaper Diaper Incontinent Incontinent # Voids 1 1 1 # Bowel Movements 1 - Labs CBC & Chem 7: 10/28/22 06:13 10/28/22 06:13 Labs: Abnormal Lab Results - Last 24 Hours (Table) 10/26/22 10/26/22 10/27/22 Range/Units 07:25 11:50 06:57 WBC (3.8-10.6) k/uL Plt Count (150-450) k/uL Glucose (74-99) mg/dL C-Reactive Protein 2.0 H (<1.0) mg/dL Albumin (PEP) 3.28 L (3.80-4.90) g/dL Vit D 1,25-Dihydroxy 17 L (20 - 79) pg/mL 10/28/22 10/28/22 Range/Units 06:13 06:13 WBC 24.2 H (3.8-10.6) k/uL Plt Count 511 H (150-450) k/uL Glucose 142 H (74-99) mg/dL C-Reactive Protein (<1.0) mg/dL Albumin (PEP) (3.80-4.90) g/dL Vit D 1,25-Dihydroxy (20 - 79) pg/mL Microbiology - Last 24 Hours (Table) 10/26/22 07:25 Blood Culture - Preliminary Blood No Growth after 48 hours Assessment and Plan Plan: Assessment: 1. Hypercalcemia secondary to vitamin D supplementation and thiazide diuretic. Improved with IV hydration. Calcium level 8.9 today. Albumin 3.5. PTH appropriately suppressed. TSH normal. Vitamin D level 66. 1,25 D3 level 17. Serum immunofixation shows IgG Paraprotein. 2. Hypomagnesemia from poor intake and diuretic use. Replaced. Improved. 3. Benign hypertension. 4. Posterior right midlung cavitary lesion. ID and pulmonology following. 5. Volume overload. Plan: Hep-Lock IV fluids. Lasix 20 mg IV once today. Check chest x-ray. Follow-up urine immunofixation PTH related peptide. Check kappa and lambda light chains. If ratio elevated, consider hematology eval. Continue to hold thiazide diuretics and calcium/vitamin D supplementation.
[2022-10-28] MEDS: SODIUM CHLORIDE 0.9% 1,000 ML IV SCH (11:13)
--- NOTE | 2022-10-28 11:40 | XR ---
EXAMINATION TYPE: XR chest 1V portable DATE OF EXAM: 10/28/2022 CLINICAL HISTORY: Difficulty breathing progress study. TECHNIQUE: Single AP portable upright view of the chest is obtained. COMPARISON: Chest x-ray from October 25, 2022. Chest CT October 26, 2022 FINDINGS: Background chronic emphysematous change with right hilar prominence corresponding to cavit teri superior right lower lobe lesion is redemonstrated. This is slightly less prominent from most rec ent studies. Bibasilar and right lateral midlung increased opacities are seen. Stable mild cardiomega ly. Osseous structures are demineralized. IMPRESSION: Chronic emphysematous change with mild cardiomegaly and cavitary right lung lesion redemo nstrated. New patchy bibasilar and lateral right midlung acute infiltrate and/or atelectasis.
[2022-10-28 12:04] LABS: Glucose,Whole Blood 126 mg/dL (70-110)
[2022-10-28] MEDS: methylPREDNISolone SOD SUCCI 40 MG/ML 1 ML VIAL IV SCH ×2 (12:32→20:51)
--- NOTE | 2022-10-28 13:26 | P.PN ---
Subjective Progress Note Date: 10/28/22 Principal diagnosis: Acute on chronic hypoxic and hypercapnic respiratory failure with altered mental status I'm seeing this patient in new consultation today 10/26/2022 for a suspected lung mass found on imaging. 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 Patient reportedly lives at [facility]. She does follow with Dr. Glasgow in the office for her COPD and pulmonary fibrosis. Patient did have a recent hospitalization for a urinary tract infection and COPD exacerbation September 19 through September 24. Patient is currently alert and pleasantly confused. She is a poor historian. She is lying in bed, on 2 L nasal cannula, in no acute distress. Apparently, patient presented to the emergency room with this confusion and hallucinations over the past few days. Patient denies any pulmonary complaints or fever. Brain CT without contrast was negative for any acute intracranial processes. Chest x-ray on arrival showed chronic parenchymal fibrotic changes along with a nonspecific 4.3 cm thick walled cavitary lesion in the right superior lower lobe which was redemonstrated on previous exam. No acute cardiopulmonary processes seen. Patient had undergone bronchoscopy with Dr. 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 Patient did receive treatment per infectious disease. CBC on arrival showed a WBC count of 10.9, hemoglobin 14.8, hematocrit 46.1, platelets 41,000. Patient's ABG showed a pH of 7.37, pCO2 of 66. BMP on arrival shows sodium 138, potassium 5.2, chloride 94, serum CO2 chronically elevated at 40, BUN 28, creatinine 0.7, glucose 99. Patient's calcium was mildly elevated at 11.9. She denies any bone pain or known active malignancies. Pro calcitonin level was mildly elevated at 0.1. Urinalysis did not suggest urinary tract infection. Patient is afebrile. Normal saline is infusing at 100 mL per hour. Vital signs are stable at this time. Patient was reevaluated today on 10/27/2022, doing well, not in any distress, she is on 3 L nasal cannula and O2 sats is 94%. Patient was made aware of the results of her CT of the chest, there is a cavitary lesion in the right lung, with air fluid level, it is posteriorly, it could be a lung abscess or could be a malignant lesion. I favor lung abscess, has been present for quite some time, it is nothing new patient made aware of the findings, and extremely reluctant to have any intervention including diagnostic bronchoscopy or CT-guided needle aspiration of the abscess. Considering her overall status, mostly supportive care measures are recommended. Pro calcitonin level is 0.08. Calcium is 9.2 and her PTH is normal. WBC count is 20.1. Patient was seen by infectious disease, and notes from infectious disease was noted and reviewed/appreciated. Reevaluated today on 10/28/2022, patient had mostly symptoms of chills last night, but no cough, no fever, no hemoptysis, her CBC did show evidence of leukocytosis. Considering her symptoms may have to consider antibiotics, infectious disease is following on this patient. Patient again declined CT- guided needle aspiration or bronchoscopy she had previous history of atypical mycobacterial infection. Objective - Vital Signs Vital signs: Vital Signs Temp 97.6 F 10/28/22 09:34 Pulse 80 10/28/22 11:43 Resp 16 10/28/22 09:34 BP 159/68 10/28/22 09:34 Pulse Ox 91 L 10/28/22 09:34 FiO2 Intake & Output 10/27/22 10/28/22 10/28/22 18:59 06:59 18:59 Intake Total 236 250 Balance 236 250 Intake: IV 10 Invasive Line 2 10 Oral 236 240 Other: Voiding Method Diaper Diaper Diaper Incontinent Incontinent Incontinent # Voids 1 1 1 # Bowel Movements 1 - Exam Physical Exam: Revealed a 87-year-old female in no distress. Head: Atraumatic, normocephalic. HEENT:[Neck is supple.] [No neck masses.] [No thyromegaly.] [No JVD.] Chest: [Symmetrical chest expansion, crackles at the bases no rhonchi no wheezes] Cardiac Exam: [Normal S1 and S2, no S3 gallop, no murmur.] Abdomen: [Soft, nontender, no megaly, no rebound, no guarding, normal bowel sounds.] Extremities: [No clubbing, no edema, no cyanosis.] Neurological Exam: [No focal neurologic deficit.] - Labs CBC & Chem 7: 10/28/22 06:13 10/28/22 06:13 Labs: Abnormal Lab Results - Last 24 Hours (Table) 10/26/22 10/28/22 10/28/22 Range/Units 07:25 06:13 06:13 WBC 24.2 H (3.8-10.6) k/uL Plt Count 511 H (150-450) k/uL Glucose 142 H (74-99) mg/dL POC Glucose (mg/dL) (70-110) mg/dL Vit D 1,25-Dihydroxy 17 L (20 - 79) pg/mL 10/28/22 Range/Units 12:03 WBC (3.8-10.6) k/uL Plt Count (150-450) k/uL Glucose (74-99) mg/dL POC Glucose (mg/dL) 126 H (70-110) mg/dL Vit D 1,25-Dihydroxy (20 - 79) pg/mL Microbiology - Last 24 Hours (Table) 10/26/22 07:25 Blood Culture - Preliminary Blood No Growth after 48 hours Assessment and Plan Assessment: Impression: Acute on chronic hypoxic and hypercapnic respiratory failure Acute hypercalcemia, could be related to underlying malignancy Right lung cavitary lesion, likely infectious in nature although the possibility of malignancy is not entirely ruled out could be a cavitating carcinoma. Acute toxic metabolic encephalopathy with mental status change, resolved. Could be related to above also be related to hypercalcemia on presentation Benign essential hypertension Dyslipidemia History of bowel resection Recommendation: Continue present supportive care measures Continue bronchodilators Patient to be seen by infectious disease and decide whether antibiotics would be appropriate at this point. Continue steroid Continue IV hydration Patient does not like any heroic measures or diagnostic measures including bronchoscopy or CT-guided needle aspiration of the cavitary lesion in the right lung Will recommend discharge home and follow up on outpatient basis Antibiotics as per infectious disease on the case Time with Patient: Less than 30
[2022-10-28] MEDS: rifAMPin 300 MG CAP PO SCH (17:19)
[2022-10-28] MEDS: AZITHROMYCIN 500 MG TAB PO SCH (17:19)
[2022-10-28] MEDS: ETHAMBUTOL 400 MG TAB PO SCH (17:19)
--- NOTE | 2022-10-28 17:47 | P.PN ---
Subjective Progress Note Date: 10/28/22 Principal diagnosis: Cavitatory lung lesion/MYESHA Patient is 87-year-old female with a past medical history significant for COPD hypertension hyperlipidemia pulmonary fibrosis and this patient also have a history of right lower lobe cavitary lesion for the patient did have bronchoscopy done on 12/25/2020 culture subsequently finalized with MYESHA , patient subsequently lost for follow-up with his evaluation in the hospital for UTI at that point Daughter has refused CAT scan patient did have CT of the chest completed on 10/26/2022,Which did shows cavitatory lesion with air-fluid level posterior right mid lung condition lung nodules increased lung markings On today's evaluation that is 10/28/2022, the patient remains to be afebrile, the patient is breathing comfortably on 2 L nasal cannula oxygen , the patient denies any chest pain she did have a cough production, no abdominal pain and no diarrhea Objective - Vital Signs Vital signs: Vital Signs Temp 97.6 F 10/28/22 09:34 Pulse 80 10/28/22 11:43 Resp 16 10/28/22 09:34 BP 159/68 10/28/22 09:34 Pulse Ox 91 L 10/28/22 09:34 FiO2 Intake & Output 10/27/22 10/28/22 10/28/22 18:59 06:59 18:59 Intake Total 236 250 Balance 236 250 Intake: IV 10 Invasive Line 2 10 Oral 236 240 Other: Voiding Method Diaper Diaper Diaper Incontinent Incontinent Incontinent # Voids 1 1 1 # Bowel Movements 1 - Exam GENERAL DESCRIPTION: An elderly female lying in bed in no distress RESPIRATORY SYSTEM: Unlabored breathing , coarse breath sounds bilaterally HEART: S1 S2 regular rate and rhythm , ABDOMEN: Soft , no tenderness EXTREMITIES: No edema feet - Labs CBC & Chem 7: 10/28/22 06:13 10/28/22 06:13 Labs: Abnormal Lab Results - Last 24 Hours (Table) 10/26/22 10/28/22 10/28/22 Range/Units 07:25 06:13 06:13 WBC 24.2 H (3.8-10.6) k/uL Plt Count 511 H (150-450) k/uL Glucose 142 H (74-99) mg/dL POC Glucose (mg/dL) (70-110) mg/dL Vit D 1,25-Dihydroxy 17 L (20 - 79) pg/mL 10/28/22 Range/Units 12:03 WBC (3.8-10.6) k/uL Plt Count (150-450) k/uL Glucose (74-99) mg/dL POC Glucose (mg/dL) 126 H (70-110) mg/dL Vit D 1,25-Dihydroxy (20 - 79) pg/mL Microbiology - Last 24 Hours (Table) 10/26/22 07:25 Blood Culture - Preliminary Blood No Growth after 48 hours Assessment and Plan (1) Cavitary lesion of lung Current Visit: Yes Status: Acute Code(s): J98.4 - OTHER DISORDERS OF LUNG SNOMED Code(s): 736783515 (2) MYESHA (mycobacterium avium-intracellulare) Current Visit: Yes Status: Acute Code(s): A31.0 - PULMONARY MYCOBACTERIAL INFECTION SNOMED Code(s): 168795181 Plan: 1patient is 87-year-old female with a past medical history sniffing and for right lower lobe cavitary lesion for which the patient did have a bronchoscopy back in 2020 and cultures were positive for MYESHA however the patient was subsequently lost to follow-up and on her last admission to the hospital the patient and daughter did not want any further investigation and she refused CAT scan of the chest which was ordered and per discussion with her she does not want any further investigation to be done or any treatment offered as of 10/26/2022 2- patient did have CT of the chest on 10/26/2022 which did shows right mid lung cavitatory lesion with air-fluid level concern for possible abscess however the patient is currently not running any fever did have a normal pro-calcitonin clin ically doubt bacterial pneumonia or abscess and more likely dealing with MYESHA infection 3-patient family has agreed to treatment patient will be started on rifampin Zithromax and ethambutol and will be monitored closely Time with Patient: Less than 30
[2022-10-29] MEDS: hydrALAZINE HCL 20 MG/ML 1 ML VIAL IVP PRN (05:06)
--- NOTE | 2022-10-29 05:36 | P.PN ---
Subjective Progress Note Date: 10/28/22 This is an 87 year old female with medical history of COPD, pulmonary fibrosis, hypertension, bladder cancer. Patient presents to the hospital sent in from [facility] with altered mental status having increased confusion and also hallucinations. Patient is confused at baseline. 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 Patient was not treated at that time. Brain CT shows age related atrophic and chronic small vessel ischemic change without acute intracranial process seen at this time. Chest xray showing similar parenchymal fibrotic changes with nonspecific 4.3 cm thick-walled cavitary lesion in the superior right lower lobe redemonstrated. Labs reveal white count of 10.9 which has normalized. Potassium is 5.2, calcium 11.9, magnesium 1.3. Kidney function is stable. Urinalysis showing no infection. Patient is admitted for confusion, elevated calcium level and lung mass. 10/27/2022 Patient evaluated in follow up. No acute events overnight. Patient is more awake and alert today. She is confused. She remains on nasal cannula on 3L, patient does wear 2L of chronic oxygen. Family reports issues with patient removed oxygen where she resides and becoming hypoxic. There is no reported history of dementia. Patient was up in the chair today and did remove oxygen and take herself off the chair alarm and was found on knees with no injury sustained. Patient reports that she was "trying to kick a ball." Family feels her mentation has improved since yesterday. Not at baseline. Had a Chest CT done showing cav itary lesion with an air-filled fluid level in the posterior right mid lung. Additional lung nodules and increased lung markings are within the right lung. Patient was on IV solumedrol 60 mg Q6 which has been decreased. White count up to 20 likely from steroid use. Potassium 3.9 today, kidney function stable. 10/28/2022 Patient is seen and evaluated in follow-up today with daughter at the bedside currently sitting up in the chair and is calm and cooperative at this time. Patient is pleasantly confused and being monitored closely with infectious disease following. Patient also being followed by pulmonary continued on IV steroids with continued elevated white count, possibly a component of steroid- induced leukocytosis. Patient is afebrile. Her calcitonin was within normal limits. There is concerned initially for this cavitary lesion of which family reports has been known about does not want to pursue heroic measures although is agreeable to antibiotic recommendations. Infectious disease starting the patient on rifampin as well as Zithromax. Recommend follow-up labs. Patient with significant weakness and working on going to [employer] and continues to wait for insurance auth. Review of Systems: Unable to obtain given patient's mental state All inpatient medications were reviewed and appropriate changes in these medications as dictated in the interval history and assessment and plan. Active Medications Acetaminophen (Acetaminophen Tab 325 Mg Tab) 650 mg PO Q6HR PRN PRN Reason: Mild Pain or Fever > 100.5 Albuterol Sulfate (Albuterol Nebulized 2.5 Mg/3 Ml) 2.5 mg INHALATION RT-QID [facility] Last Admin: 10/28/22 21:33 Dose: 2.5 mg Albuterol Sulfate (Albuterol Nebulized 2.5 Mg/3 Ml) 2.5 mg INHALATION RT-Q2H PRN PRN Reason: Shortness Of Breath Or Wheezing Aspirin (Aspirin 81 Mg) 81 mg PO DAILY@0800 [facility] Last Admin: 10/28/22 09:40 Dose: 81 mg Atorvastatin Calcium (Atorvastatin 20 Mg Tab) 20 mg PO DAILY@0800 [facility] Last Admin: 10/28/22 09:41 Dose: 20 mg Azithromycin (Azithromycin 500 Mg Tab) 500 mg PO DAILY [facility]; Protocol Stop: 10/30/22 09:01 Last Admin: 10/28/22 17:19 Dose: 500 mg Budesonide/Formoterol Fumarate (Symbicort 160-4.5 Mcg Inhaler) 2 puff INHALATION RT-BID [facility] Last Admin: 10/28/22 21:33 Dose: 2 puff Ethambutol HCl (Ethambutol 400 Mg Tab) 800 mg PO DAILY@1600 [facility] Last Admin: 10/28/22 17:19 Dose: 800 mg Hydralazine HCl (Hydralazine Hcl 20 Mg/Ml 1 Ml Vial) 10 mg IVP Q6HR PRN PRN Reason: Blood Pressure - High Last Admin: 10/29/22 05:06 Dose: 10 mg Hydralazine HCl (Hydralazine Hcl 50 Mg Tab) 50 mg PO TID [facility] Last Admin: 10/28/22 20:51 Dose: 50 mg Ipratropium [place] (Ipratropium 0.5 Mg/2.5 Ml Nebu) 0.5 mg INHALATION RT-Q2H PRN PRN Reason: Shortness Of Breath Or Wheezing Ipratropium [place] (Ipratropium 0.5 Mg/2.5 Ml Nebu) 0.5 mg INHALATION RT-QID [facility] Last Admin: 10/28/22 21:32 Dose: 0.5 mg Lisinopril (Lisinopril 20 Mg Tab) 20 mg PO DAILY@0800 [facility] Last Admin: 10/28/22 09:40 Dose: 20 mg Methylprednisolone Sodium Succinate (Methylprednisolone Sod Succi 40 Mg/Ml 1 Ml Vial) 40 mg IV Q12HR [facility] Last Admin: 10/28/22 20:51 Dose: 40 mg Naloxone HCl (Naloxone 0.4 Mg/Ml 1 Ml Vial) 0.2 mg IV Q2M PRN PRN Reason: Opioid Reversal Rifampin (Rifampin 300 Mg Cap) 600 mg PO DAILY@1500 [facility]; Protocol Last Admin: 10/28/22 17:19 Dose: 600 mg Tamsulosin HCl (Tamsulosin 0.4 Mg Cap.Er.24h) 0.4 mg PO DAILY@0800 [facility] Last Admin: 10/28/22 09:41 Dose: 0.4 mg PHYSICAL EXAMINATION: GENERAL: The patient is alert and oriented x1-2, not in any acute distress, pleasantly confused. Pale frail built elderly patient HEENT: Pupils are round and equally reacting to light. EOMI. No scleral icterus. No conjunctival pallor. Normocephalic, atraumatic. No pharyngeal erythema. No thyromegaly. CARDIOVASCULAR: S1 and S2 present. No murmurs, rubs, or gallops. PULMONARY: Faint scattered crackles ABDOMEN: Soft, nontender, nondistended, normoactive bowel sounds. No palpable o rganomegaly. MUSCULOSKELETAL: No joint swelling or deformity. EXTREMITIES: No cyanosis, clubbing, or pedal edema. NEUROLOGICAL: Gross neurological examination did not reveal any focal deficits. Diffusely weak. SKIN: No rashes. Assessment: Altered mental status likely from metabolic encephalopathy secondary to hypercalcemia, improving. Frequent falls at home and fell while in hospital on 10/27 Hyperkalemia resolved Hypercalcemia from Vitamin D supplement, improved. Recent hospitalization and treatment for acute UTI Chronic hypoxic respiratory failure History of COPD/Pulmonary fibrosis Known 4.3 cm cavitary lesion right lower lobe and bronchoscopy showing mycobacteria chimaera History hypertension hx bladder cancer Hx colon cancer with resection Lifelong nonsmoker GI prophylaxis DVT prophylaxis Do Not Resuscitate/Do Not Intubate Plan: Pulmonary/nephrology consultation with kidney functions improving and maintaining on IV steroids with pulmonary following Infectious disease following an being started on antibiotics in the form of Zithromax along with rifampin and ethambutal. Family does not want to pursue with biopsy or further intervention of this known cavitary lesion Vitamin D3 discontinued and thiazide diuretic discontinued Patient is being hydrated with normal saline rate decreased to 75 mls IV steroids are decreased and follow up with labs in the a.m. Hydralazine increased for blood pressure Patient/Family refusing further testing and treatment for MYESHA infection although is now agreeable to antibiotics. PT/OT recommending ECF for rehab with case management following and working on insurance authorization for [facility] which is currently pending Recommend monitor closely and will follow-up with consultations discharge planning Due to multiple complex medical issues, prognosis is guarded The impression and plan of care has been dictated by Nat Govea, Nurse Practitioner as directed. Dr. Hesham MD I have performed a history and examination and MDM of this patient, discussed the same with the dictator, and agree with the dictator's assessment and plan as written ,documented as a scribe. Based on total visit time, I have performed more than 50% of the visit. Objective - Vital Signs Vital signs: Vital Signs Temp 97.6 F 10/28/22 09:34 Pulse 80 10/28/22 11:43 Resp 16 10/28/22 09:34 BP 159/68 10/28/22 09:34 Pulse Ox 91 L 10/28/22 09:34 FiO2 Intake & Output 10/27/22 10/28/22 10/28/22 18:59 06:59 18:59 Intake Total 236 250 Balance 236 250 Intake: IV 10 Invasive Line 2 10 Oral 236 240 Other: Voiding Method Diaper Diaper Diaper Incontinent Incontinent Incontinent # Voids 1 1 1 # Bowel Movements 1 - Labs CBC & Chem 7: 10/28/22 06:13 10/28/22 06:13 Labs: Abnormal Lab Results - Last 24 Hours (Table) 10/26/22 10/28/22 10/28/22 Range/Units 07:25 06:13 06:13 WBC 24.2 H (3.8-10.6) k/uL Plt Count 511 H (150-450) k/uL Glucose 142 H (74-99) mg/dL POC Glucose (mg/dL) (70-110) mg/dL Vit D 1,25-Dihydroxy 17 L (20 - 79) pg/mL 10/28/22 Range/Units 12:03 WBC (3.8-10.6) k/uL Plt Count (150-450) k/uL Glucose (74-99) mg/dL POC Glucose (mg/dL) 126 H (70-110) mg/dL Vit D 1,25-Dihydroxy (20 - 79) pg/mL Microbiology - Last 24 Hours (Table) 10/26/22 07:25 Blood Culture - Preliminary Blood No Growth after 48 hours
[2022-10-29 08:31] LABS: Basophils % (A) 0 %; Eosinophils # (A) 0.1 k/uL (0-0.7); Eosinophils % (A) 0 %; HCT 43.6 % (34.0-46.0); HGB 13.8 gm/dL (11.4-16.0); Lymphocytes # (A) 0.4 k/uL (1.0-4.8); Lymphocytes % (A) 2 %; MCH 29.3 pg (25.0-35.0); MCHC 31.7 g/dL (31.0-37.0); MCV 92.5 fL (80.0-100.0); Mean Platelet Volume 8.6; Monocytes # (A) 0.5 k/uL (0-1.0); Monocytes % (A) 2 %; Neutrophils # (A) 18.7 k/uL (1.3-7.7); Neutrophils % (A) 95 %; Platelet Count 530 k/uL (150-450); RBC 4.71 m/uL (3.80-5.40); RDW 15.2 % (11.5-15.5); WBC 19.7 k/uL (3.8-10.6)
[2022-10-29 08:37] LABS: African American GFR (CKD) >90 (>60 ml/min/1.73 sqM); Anion Gap 7 mmol/L; Blood Urea Nitrogen 22 mg/dL (7-17); Calcium 9.1 mg/dL (8.4-10.2); Carbon Dioxide 30 mmol/L (22-30); Chloride 104 mmol/L (98-107); Glucose 141 mg/dL (74-99); Magnesium 1.7 mg/dL (1.6-2.3); Non-African American GFR(CKD) 83 (>60 ml/min/1.73 sqM); Potassium 4.1 mmol/L (3.5-5.1); Sodium 141 mmol/L (137-145)
[2022-10-29] MEDS: SYMBICORT 160-4.5 MCG INHALER INHALATION SCH ×2 (08:41→20:42)
[2022-10-29] MEDS: IPRATROPIUM 0.5 MG/2.5 ML NEBU INHALATION SCH ×4 (08:41→20:42)
[2022-10-29] MEDS: ALBUTEROL NEBULIZED 2.5 MG/3 ML INHALATION SCH ×4 (08:41→20:42)
[2022-10-29] MEDS: methylPREDNISolone SOD SUCCI 40 MG/ML 1 ML VIAL IV SCH ×2 (08:52→20:30)
[2022-10-29] MEDS: TAMSULOSIN 0.4 MG CAP.ER.24H PO SCH (08:53)
[2022-10-29] MEDS: ASPIRIN 81 MG PO SCH (08:53)
[2022-10-29] MEDS: lisinopriL 20 MG TAB PO SCH (08:53)
[2022-10-29] MEDS: AZITHROMYCIN 500 MG TAB PO SCH (08:53)
[2022-10-29] MEDS: ATORVASTATIN 20 MG TAB PO SCH (08:53)
[2022-10-29] MEDS: hydrALAZINE HCL 50 MG TAB PO SCH ×3 (08:53→20:30)
--- NOTE | 2022-10-29 10:41 | P.PN ---
Subjective Progress Note Date: 10/29/22 Principal diagnosis: This 87-year-old female is followed up for hypercalcemia, deemed to be from vitamin D and calcium intake. Calcium is down to normal. 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 Urinalysis shows no proteinuria, urine protein to creatinine is ordered.. She is currently fairly asymptomatic denies any complaints no headache chest pain shortness of breath. No nausea vomiting or abdominal pain. Vital signs are stable. Urine output is 400 mL, and her creatinine is normal at 0.5 Objective - Vital Signs Vital signs: Vital Signs Temp 97.7 F 10/29/22 08:00 Pulse 80 10/29/22 08:57 Resp 18 10/29/22 08:00 BP 136/75 10/29/22 08:00 Pulse Ox 96 10/29/22 08:42 FiO2 Intake & Output 10/28/22 10/29/22 10/29/22 18:59 06:59 18:59 Intake Total 1228 10 118 Output Total 400 Balance 1228 10 -282 Intake: IV 30 10 Invasive Line 2 10 Invasive Line 3 20 10 Oral 1198 0 118 Output: Urine 400 Other: Voiding Method Diaper Diaper Diaper Incontinent Incontinent Incontinent # Voids 4 1 Awake alert oriented HEENT exam no JVP neck is supple no facial asymmetry Lungs clear to auscultation good air entry bilateral. Heart sounds unremarkable Abdomen soft nontender Extremity exam was no edema Neurologically awake alert - Labs CBC & Chem 7: 10/29/22 07:33 10/29/22 07:33 Labs: Abnormal Lab Results - Last 24 Hours (Table) 10/28/22 10/29/22 10/29/22 Range/Units 12:03 07:33 07:33 WBC 19.7 H (3.8-10.6) k/uL Plt Count 530 H (150-450) k/uL Neutrophils # 18.7 H (1.3-7.7) k/uL Lymphocytes # 0.4 L (1.0-4.8) k/uL BUN 22 H (7-17) mg/dL Glucose 141 H (74-99) mg/dL POC Glucose (mg/dL) 126 H (70-110) mg/dL Microbiology - Last 24 Hours (Table) 04/05/23 07:25 Blood Culture - Preliminary Blood No Growth after 72 hours Assessment and Plan Plan: Impression 1. Hypercalcemia secondary to vitamin D and calcium intake. Corrected back to normal 2. 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 No further intervention for now. Given her age and normal renal function the paraproteinemia can be followed up
--- NOTE | 2022-10-29 11:47 | P.PN ---
Progress Note - Text Progress Note Date: 10/29/22 87 year old female with medical history of COPD, pulmonary fibrosis, hypertension, bladder cancer. Patient presents to the hospital sent in from [facility] with altered mental status having increased confusion and also hallucinations. Patient is confused at baseline. 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 Patient was not treated at that time. Brain CT shows age related atrophic and chronic small vessel ischemic change without acute intracranial process seen at this time. Chest xray showing similar parenchymal fibrotic changes with nonspecific 4.3 cm thick-walled cavitary lesion in the superior right lower lobe redemonstrated. Labs reveal white count of 10.9 which has normalized. Potassium is 5.2, calcium 11.9, magnesium 1.3. Kidney function is stable. Urinalysis showing no infection. Patient is admitted for confusion, elevated calcium level and lung mass. 10/27/2022 Patient evaluated in follow up. No acute events overnight. Patient is more awake and alert today. She is confused. She remains on nasal cannula on 3L, patient does wear 2L of chronic oxygen. Family reports issues with patient removed oxygen where she resides and becoming hypoxic. There is no reported history of dementia. Patient was up in the chair today and did remove oxygen and take herself off the chair alarm and was found on knees with no injury sustained. Patient reports that she was "trying to kick a ball." Family feels her mentation has improved since yesterday. Not at baseline. Had a Chest CT done showing cavitary lesion with an air-filled fluid level in the posterior right mid lung. Additional lung nodules and increased lung markings are within the right lung. Patient was on IV solumedrol 60 mg Q6 which has been decreased. White count up to 20 likely from steroid use. Potassium 3.9 today, kidney function stable. 10/28/2022 Patient is seen and evaluated in follow-up today with daughter at the bedside currently sitting up in the chair and is calm and cooperative at this time. Patient is pleasantly confused and being monitored closely with infectious disease following. Patient also being followed by pulmonary continued on IV steroids with continued elevated white count, possibly a component of steroid- induced leukocytosis. Patient is afebrile. Her calcitonin was within normal limits. There is concerned initially for this cavitary lesion of which family reports has been known about does not want to pursue heroic measures although is agreeable to antibiotic recommendations. Infectious disease starting the patient on rifampin as well as Zithromax. Recommend follow-up labs. Patient w ith significant weakness and working on going to [facility] and continues to wait for insurance auth. 10/29/2022 Patient seen and evaluated by 10, patient's breathing has improved. Continue current antibiotic regimen. Patient waiting discharge to rehab facility REVIEW OF SYSTEMS: CONSTITUTIONAL: No fever, no malaise, no fatigue. HEENT: No recent visual problems or hearing problems. Denied any sore throat. CARDIOVASCULAR: No chest pain, orthopnea, PND, no palpitations, no syncope. PULMONARY: No shortness of breath, no cough, no hemoptysis. GASTROINTESTINAL: No diarrhea, no nausea, no vomiting, no abdominal pain. NEUROLOGICAL: No headaches, no weakness, no numbness. HEMATOLOGICAL: Denies any bleeding or petechiae. GENITOURINARY: Denies any burning micturition, frequency, or urgency. MUSCULOSKELETAL/RHEUMATOLOGICAL: Denies any joint pain, swelling, or any muscle pain. ENDOCRINE: Denies any polyuria or polydipsia. PHYSICAL EXAMINATION: GENERAL: The patient is alert and oriented x 1 not in any acute distress. Well developed, well nourished. HEENT: Pupils are round and equally reacting to light. EOMI. No scleral icterus. No conjunctival pallor. Normocephalic, atraumatic. No pharyngeal erythema. No thyromegaly. CARDIOVASCULAR: S1 and S2 present. No murmurs, rubs, or gallops. PULMONARY: Chest is clear to auscultation, no wheezing or crackles. ABDOMEN: Soft, nontender, nondistended, normoactive bowel sounds. No palpable organomegaly. MUSCULOSKELETAL: No joint swelling or deformity. EXTREMITIES: No cyanosis, clubbing, or pedal edema. NEUROLOGICAL: Gross neurological examination did not reveal any focal deficits. SKIN: No rashes. Assessment and plan Acute metabolic encephalopathy secondary to hypercalcemia, improving Cavitary lesion of lung Frequent falls at home and fell while in hospital on 10/27 Hyperkalemia resolved Hypercalcemia from Vitamin D supplement, improved. Recent hospitalization and treatment for acute UTI Chronic hypoxic respiratory failure History of COPD/Pulmonary fibrosis Known 4.3 cm cavitary lesion right lower lobe and bronchoscopy showing mycobacteria chimaera History hypertension hx bladder cancer Hx colon cancer with resection Lifelong nonsmoker GI prophylaxis DVT prophylaxis Do Not Resuscitate/Do Not Intubate Plan: Pulmonary/nephrology consultation with kidney functions improving and maintaining on IV steroids with pulmonary following Infectious disease following, On Zithromax along with rifampin and ethambutal. Family does not want to pursue with biopsy or further intervention of this known cavitary lesion Vitamin D3 discontinued and thiazide diuretic discontinued Patient/Family refusing further testing and treatment for MYESHA infection although is now agreeable to antibiotics. PT/OT recommending ECF for rehab with case management following and working on insurance authorization for [facility] which is currently pending Recommend monitor closely and will follow-up with consultations discharge planning
--- NOTE | 2022-10-29 12:31 | P.PN ---
Subjective Progress Note Date: 10/29/22 Principal diagnosis: Acute on chronic hypoxic and hypercapnic respiratory failure with altered mental status I'm seeing this patient in new consultation today 10/26/2022 for a suspected lung mass found on imaging. 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 Patient reportedly lives at [facility]. She does follow with Dr. Glasgow in the office for her COPD and pulmonary fibrosis. Patient did have a recent hospitalization for a urinary tract infection and COPD exacerbation September 19 through September 24. Patient is currently alert and pleasantly confused. She is a poor historian. She is lying in bed, on 2 L nasal cannula, in no acute distress. Apparently, patient presented to the emergency room with this confusion and hallucinations over the past few days. Patient denies any pulmonary complaints or fever. Brain CT without contrast was negative for any acute intracranial processes. Chest x-ray on arrival showed chronic parenchymal fibrotic changes along with a nonspecific 4.3 cm thick walled cavitary lesion in the right superior lower lobe which was redemonstrated on previous exam. No acute cardiopulmonary processes seen. Patient had undergone bronchoscopy with Dr. 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 Patient did receive treatment per infectious disease. CBC on arrival showed a WBC count of 10.9, hemoglobin 14.8, hematocrit 46.1, platelets 41,000. Patient's ABG showed a pH of 7.37, pCO2 of 66. BMP on arrival shows sodium 138, potassium 5.2, chloride 94, serum CO2 chronically elevated at 40, BUN 28, creatinine 0.7, glucose 99. Patient's calcium was mildly elevated at 11.9. She denies any bone pain or known active malignancies. Pro calcitonin level was mildly elevated at 0.1. Urinalysis did not suggest urinary tract infection. Patient is afebrile. Normal saline is infusing at 100 mL per hour. Vital signs are stable at this time. Patient was reevaluated today on 10/27/2022, doing well, not in any distress, she is on 3 L nasal cannula and O2 sats is 94%. Patient was made aware of the results of her CT of the chest, there is a cavitary lesion in the right lung, with air fluid level, it is posteriorly, it could be a lung abscess or could be a malignant lesion. I favor lung abscess, has been present for quite some time, it is nothing new patient made aware of the findings, and extremely reluctant to have any intervention including diagnostic bronchoscopy or CT-guided needle aspiration of the abscess. Considering her overall status, mostly supportive care measures are recommended. Pro calcitonin level is 0.08. Calcium is 9.2 and her PTH is normal. WBC count is 20.1. Patient was seen by infectious disease, and notes from infectious disease was noted and reviewed/appreciated. Reevaluated today on 10/28/2022, patient had mostly symptoms of chills last night, but no cough, no fever, no hemoptysis, her CBC did show evidence of leukocytosis. Considering her symptoms may have to consider antibiotics, infectious disease is following on this patient. Patient again declined CT- guided needle aspiration or bronchoscopy she had previous history of atypical mycobacterial infection. Reevaluated today on 10/29/2022, patient is now agreeable to go ahead and start treatment for atypical mycobacterial infection she was started by infectious disease on ethambutol, rifampin, and on Zithromax. So far so good, the patient is doing well, WBC count is 19.7 hemoglobin 13.8 in excess abnormal renal profile is normal Objective - Vital Signs Vital signs: Vital Signs Temp 97.7 F 10/29/22 08:00 Pulse 80 10/29/22 08:57 Resp 18 10/29/22 08:00 BP 136/75 10/29/22 08:00 Pulse Ox 96 10/29/22 08:42 FiO2 Intake & Output 10/28/22 10/29/22 10/29/22 18:59 06:59 18:59 Intake Total 1228 10 118 Output Total 400 Balance 1228 10 -282 Intake: IV 30 10 Invasive Line 2 10 Invasive Line 3 20 10 Oral 1198 0 118 Output: Urine 400 Other: Voiding Method Diaper Diaper Diaper Incontinent Incontinent Incontinent # Voids 4 1 - Exam Physical Exam: Revealed a 87-year-old female in no distress. Head: Atraumatic, normocephalic. HEENT:[Neck is supple.] [No neck masses.] [No thyromegaly.] [No JVD.] Chest: [Symmetrical chest expansion, crackles at the bases no rhonchi no wheezes] Cardiac Exam: [Normal S1 and S2, no S3 gallop, no murmur.] Abdomen: [Soft, nontender, no megaly, no rebound, no guarding, normal bowel sounds.] Extremities: [No clubbing, no edema, no cyanosis.] Neurological Exam: [No focal neurologic deficit.] - Labs CBC & Chem 7: 10/29/22 07:33 10/29/22 07:33 Labs: Abnormal Lab Results - Last 24 Hours (Table) 10/29/22 10/29/22 Range/Units 07:33 07:33 WBC 19.7 H (3.8-10.6) k/uL Plt Count 530 H (150-450) k/uL Neutrophils # 18.7 H (1.3-7.7) k/uL Lymphocytes # 0.4 L (1.0-4.8) k/uL BUN 22 H (7-17) mg/dL Glucose 141 H (74-99) mg/dL Microbiology - Last 24 Hours (Table) 10/26/22 07:25 Blood Culture - Preliminary Blood No Growth after 72 hours Assessment and Plan Assessment: Impression: History of atypical mycobacterial infection Acute on chronic hypoxic and hypercapnic respiratory failure Acute hypercalcemia, could be related to underlying malignancy Right lung cavitary lesion, likely infectious in nature although the possibility of malignancy is not entirely ruled out could be a cavitating carcinoma. Acute toxic metabolic encephalopathy with mental status change, resolved. Could be related to above also be related to hypercalcemia on presentation Benign essential hypertension Dyslipidemia History of bowel resection Recommendation: Continue present supportive care measures Continue bronchodilators Agree with the Zithromax, rifampin and ethambutol. Continue steroid Continue IV hydration no diagnostic measures including bronchoscopy or CT-guided needle aspiration of the cavitary lesion in the right lung as per the patient's and family is wishing Possible discharge early next Time with Patient: Less than 30
--- NOTE | 2022-10-29 14:54 | P.PN ---
Subjective Progress Note Date: 10/29/22 Principal diagnosis: Cavitatory lung lesion/MYESHA Patient is 87-year-old female with a past medical history significant for COPD hypertension hyperlipidemia pulmonary fibrosis and this patient also have a history of right lower lobe cavitary lesion for the patient did have bronchoscopy done on 12/25/2020 culture subsequently finalized with MYESHA , patient subsequently lost for follow-up with his evaluation in the hospital for UTI at that point Daughter has refused CAT scan patient did have CT of the chest completed on 10/26/2022,Which did shows cavitatory lesion with air-fluid level posterior right mid lung condition lung nodules increased lung markings On today's evaluation that is 10/29/2022, the patient continues to be afebrile, the patient is breathing comfortably on 3L nasal cannula oxygen , the patient denies any chest pain , denies any worsening cough or sputum production no nausea no vomiting no abdominal pain no diarrhea patient was able to tolerate he r medication yesterday Objective - Vital Signs Vital signs: Vital Signs Temp 97.9 F 10/29/22 13:40 Pulse 94 10/29/22 13:40 Resp 18 10/29/22 13:40 BP 141/68 10/29/22 13:40 Pulse Ox 95 10/29/22 13:40 FiO2 Intake & Output 10/28/22 10/29/22 10/29/22 18:59 06:59 18:59 Intake Total 1228 10 236 Output Total 400 Balance 1228 10 -164 Intake: IV 30 10 Invasive Line 2 10 Invasive Line 3 20 10 Oral 1198 0 236 Output: Urine 400 Other: Voiding Method Diaper Diaper Diaper Incontinent Incontinent Incontinent # Voids 4 1 - Exam GENERAL DESCRIPTION: An elderly female lying in bed in no distress RESPIRATORY SYSTEM: Unlabored breathing , coarse breath sounds bilaterally HEART: S1 S2 regular rate and rhythm , ABDOMEN: Soft , no tenderness EXTREMITIES: No edema feet - Labs CBC & Chem 7: 10/29/22 07:33 10/29/22 07:33 Labs: Abnormal Lab Results - Last 24 Hours (Table) 10/29/22 10/29/22 Range/Units 07:33 07:33 WBC 19.7 H (3.8-10.6) k/uL Plt Count 530 H (150-450) k/uL Neutrophils # 18.7 H (1.3-7.7) k/uL Lymphocytes # 0.4 L (1.0-4.8) k/uL BUN 22 H (7-17) mg/dL Glucose 141 H (74-99) mg/dL Microbiology - Last 24 Hours (Table) 10/26/22 07:25 Blood Culture - Preliminary Blood No Growth after 72 hours Assessment and Plan (1) Cavitary lesion of lung Current Visit: Yes Status: Acute Code(s): J98.4 - OTHER DISORDERS OF LUNG SNOMED Code(s): 531681984 (2) MYESHA (mycobacterium avium-intracellulare) Current Visit: Yes Status: Acute Code(s): A31.0 - PULMONARY MYCOBACTERIAL INFECTION SNOMED Code(s): 690005480 Plan: 1patient is 87-year-old female with a past medical history sniffing and for right lower lobe cavitary lesion for which the patient did have a bronchoscopy back in 2020 and cultures were positive for MYESHA however the patient was subsequently lost to follow-up and on her last admission to the hospital the patient and daughter did not want any further investigation and she refused CAT scan of the chest which was ordered and per discussion with her she does not want any further investigation to be done or any treatment offered as of 10/26 2- patient did have CT of the chest on 10/26/2022 which did shows right mid lung cavitatory lesion with air-fluid level concern for possible abscess however the patient is currently not running any fever did have a normal pro-calcitonin clinically doubt bacterial pneumonia or abscess and more likely dealing with MYESHA infection 3-patient family has agreed to treatment patient was started on rifampin Zithromax and ethambutol as of 10/28/2022 and has been tolerating so far, family the bedside questions were answered Time with Patient: Less than 30
[2022-10-29] MEDS: ETHAMBUTOL 400 MG TAB PO SCH (15:05)
[2022-10-29] MEDS: rifAMPin 300 MG CAP PO SCH (15:05)
[2022-10-30] MEDS ORDERED: FUROSEMIDE 10 MG/ML 4 ML VIAL IV STA (08:51)
[2022-10-30] MEDS: SYMBICORT 160-4.5 MCG INHALER INHALATION SCH ×2 (08:57→20:15)
[2022-10-30 08:58] LABS: HCT 42.6 % (34.0-46.0); HGB 13.6 gm/dL (11.4-16.0); Hypochromasia Slight; MCH 29.7 pg (25.0-35.0); MCHC 31.8 g/dL (31.0-37.0); MCV 93.2 fL (80.0-100.0); Mean Platelet Volume 8.4; Platelet Count 515 k/uL (150-450); RBC 4.57 m/uL (3.80-5.40); RDW 15.2 % (11.5-15.5); WBC 16.1 k/uL (3.8-10.6)
[2022-10-30] MEDS: IPRATROPIUM 0.5 MG/2.5 ML NEBU INHALATION SCH ×4 (08:58→20:15)
[2022-10-30] MEDS: ALBUTEROL NEBULIZED 2.5 MG/3 ML INHALATION SCH ×4 (08:58→20:15)
[2022-10-30] MEDS ORDERED: predniSONE 10 MG TAB PO SCH (09:00)
[2022-10-30 09:10] LABS: African American GFR (CKD) >90 (>60 ml/min/1.73 sqM); Anion Gap 5 mmol/L; Blood Urea Nitrogen 22 mg/dL (7-17); Calcium 8.9 mg/dL (8.4-10.2); Carbon Dioxide 34 mmol/L (22-30); Chloride 102 mmol/L (98-107); Glucose 119 mg/dL (74-99); Non-African American GFR(CKD) 78 (>60 ml/min/1.73 sqM); Potassium 3.9 mmol/L (3.5-5.1); Sodium 141 mmol/L (137-145)
[2022-10-30] MEDS: AZITHROMYCIN 500 MG TAB PO SCH (09:10)
[2022-10-30] MEDS: TAMSULOSIN 0.4 MG CAP.ER.24H PO SCH (09:10)
[2022-10-30] MEDS: ASPIRIN 81 MG PO SCH (09:10)
[2022-10-30] MEDS: hydrALAZINE HCL 50 MG TAB PO SCH ×3 (09:10→21:01)
[2022-10-30] MEDS: lisinopriL 20 MG TAB PO SCH (09:10)
[2022-10-30] MEDS: ATORVASTATIN 20 MG TAB PO SCH (09:11)
--- NOTE | 2022-10-30 11:31 | P.PN ---
Subjective Progress Note Date: 10/30/22 Principal diagnosis: Acute on chronic hypoxic and hypercapnic respiratory failure with altered mental status I'm seeing this patient in new consultation today 10/26/2022 for a suspected lung mass found on imaging. 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 Patient reportedly lives at [facility]. She does follow with Dr. Glasgow in the office for her COPD and pulmonary fibrosis. Patient did have a recent hospitalization for a urinary tract infection and COPD exacerbation September 19 through September 24. Patient is currently alert and pleasantly confused. She is a poor historian. She is lying in bed, on 2 L nasal cannula, in no acute distress. Apparently, patient presented to the emergency room with this confusion and hallucinations over the past few days. Patient denies any pulmonary complaints or fever. Brain CT without contrast was negative for any acute intracranial processes. Chest x-ray on arrival showed chronic parenchymal fibrotic changes along with a nonspecific 4.3 cm thick walled cavitary lesion in the right superior lower lobe which was redemonstrated on previous exam. No acute cardiopulmonary processes seen. Patient had undergone bronchoscopy with Dr. 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 Patient did receive treatment per infectious disease. CBC on arrival showed a WBC count of 10.9, hemoglobin 14.8, hematocrit 46.1, platelets 41,000. Patient's ABG showed a pH of 7.37, pCO2 of 66. BMP on arrival shows sodium 138, potassium 5.2, chloride 94, serum CO2 chronically elevated at 40, BUN 28, creatinine 0.7, glucose 99. Patient's calcium was mildly elevated at 11.9. She denies any bone pain or known active malignancies. Pro calcitonin level was mildly elevated at 0.1. Urinalysis did not suggest urinary tract infection. Patient is afebrile. Normal saline is infusing at 100 mL per hour. Vital signs are stable at this time. Patient was reevaluated today on 10/27/2022, doing well, not in any distress, she is on 3 L nasal cannula and O2 sats is 94%. Patient was made aware of the results of her CT of the chest, there is a cavitary lesion in the right lung, with air fluid level, it is posteriorly, it could be a lung abscess or could be a malignant lesion. I favor lung abscess, has been present for quite some time, it is nothing new patient made aware of the findings, and extremely reluctant to have any intervention including diagnostic bronchoscopy or CT-guided needle aspiration of the abscess. Considering her overall status, mostly supportive care measures are recommended. Pro calcitonin level is 0.08. Calcium is 9.2 and her PTH is normal. WBC count is 20.1. Patient was seen by infectious disease, and notes from infectious disease was noted and reviewed/appreciated. Reevaluated today on 10/28/2022, patient had mostly symptoms of chills last night, but no cough, no fever, no hemoptysis, her CBC did show evidence of leukocytosis. Considering her symptoms may have to consider antibiotics, infectious disease is following on this patient. Patient again declined CT- guided needle aspiration or bronchoscopy she had previous history of atypical mycobacterial infection. Reevaluated today on 10/29/2022, patient is now agreeable to go ahead and start treatment for atypical mycobacterial infection she was started by infectious disease on ethambutol, rifampin, and on Zithromax. So far so good, the patient is doing well, WBC count is 19.7 hemoglobin 13.8 in excess abnormal renal profile is normal Reevaluated today on , patient is basically about the same, except she is complaining of generalized weakness and she cannot ambulate freely, she feels she is getting weaker since he has been in the hospital, and that's not unexpected. Patient is now receiving multiple antibiotics for presumptive atypical mycobacterial infection and I'm hoping in the next 2 days patient could be considered for rehab placement. Or ECF. WBC count is 11.6 hemoglobin 11.8 lites are normal renal profile is normal, calcium was 9.2 Objective - Vital Signs Vital signs: Vital Signs Temp 97.8 F 10/30/22 08:15 Pulse 90 10/30/22 09:15 Resp 17 10/30/22 08:15 BP 178/91 10/30/22 08:15 Pulse Ox 96 10/30/22 09:01 FiO2 Intake & Output 10/29/22 10/30/22 10/30/22 18:59 06:59 18:59 Intake Total 354 360 Output Total 400 500 Balance -46 -140 Intake: Oral 354 360 Output: Urine 400 500 Other: Voiding Method Diaper Toilet Toilet Incontinent Diaper Diaper Incontinent Incontinent # Voids 1 # Bowel Movements 0 - Exam Physical Exam: Revealed a 87-year-old female in no distress. On 6 L nasal ivett cristhian Head: Atraumatic, normocephalic. HEENT:[Neck is supple.] [No neck masses.] [No thyromegaly.] [No JVD.] Chest: [Symmetrical chest expansion, crackles and rhonchi noted bilaterally. Cardiac Exam: [Normal S1 and S2, no S3 gallop, no murmur.] Abdomen: [Soft, nontender, no megaly, no rebound, no guarding, normal bowel sounds.] Extremities: [No clubbing, no edema, no cyanosis.] Neurological Exam: [No focal neurologic deficit.] - Labs CBC & Chem 7: 10/30/22 08:08 10/30/22 08:08 Labs: Abnormal Lab Results - Last 24 Hours (Table) 10/30/22 10/30/22 Range/Units 08:08 08:08 WBC 16.1 H (3.8-10.6) k/uL Plt Count 515 H (150-450) k/uL Carbon Dioxide 34 H (22-30) mmol/L BUN 22 H (7-17) mg/dL Glucose 119 H (74-99) mg/dL Microbiology - Last 24 Hours (Table) 10/26/22 07:25 Blood Culture - Preliminary Blood No Growth after 96 hours Assessment and Plan Assessment: Impression: History of atypical mycobacterial infection Acute on chronic hypoxic and hypercapnic respiratory failure Acute hypercalcemia, could be related to underlying malignancy Right lung cavitary lesion, likely infectious in nature although the possibility of malignancy is not entirely ruled out could be a cavitating carcinoma. Acute toxic metabolic encephalopathy with mental status change, resolved. Could be related to above also be related to hypercalcemia on presentation Benign essential hypertension Dyslipidemia History of bowel resection Recommendation: Continue present supportive care measures Continue bronchodilators Agree with the Zithromax, rifampin and ethambutol. Discontinue Solu-Medrol altogether. Follow-up chest x-ray in a.m. Gentle diuresis no diagnostic measures including bronchoscopy or CT-guided needle aspiration of the cavitary lesion in the right lung as per the patient's and family is wishing Patient will likely need placement in ECF for rehab facility. Time with Patient: Less than 30
--- NOTE | 2022-10-30 12:14 | P.PN ---
Subjective Progress Note Date: 10/30/22 Principal diagnosis: This 87-year-old female is followed up for hypercalcemia, deemed to be from vitamin D and calcium intake. Calcium is down to normal. 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 Urinalysis shows no proteinuria, urine protein to creatinine is ordered.. The PTH related peptide is pending She is currently fairly asymptomatic denies any complaints no headache chest pain shortness of breath. No nausea vomiting or abdominal pain. Vital signs are stable. Urine output is 400 mL, and her creatinine is normal at 0.5 The right lung cavitary lesion was noticed initially in 2020 and a bronchoscopy that showed MYESHA but patient was lost to follow-up. On this admission was started on rifampin Zithromax and ethambutol as of 10/28/2022 She is currently fairly asymptomatic he did no cough. No fever chills shortness of breath Objective - Vital Signs Vital signs: Vital Signs Temp 97.8 F 10/30/22 08:15 Pulse 90 10/30/22 09:15 Resp 17 10/30/22 08:15 BP 178/91 10/30/22 08:15 Pulse Ox 96 10/30/22 09:01 FiO2 Intake & Output 10/29/22 10/30/22 10/30/22 18:59 06:59 18:59 Intake Total 354 360 Output Total 400 500 Balance -46 -140 Intake: Oral 354 360 Output: Urine 400 500 Other: Voiding Method Diaper Toilet Toilet Incontinent Diaper Diaper Incontinent Incontinent # Voids 1 # Bowel Movements 0 Awake alert oriented HEENT exam no JVP neck is supple no facial asymmetry Lungs clear to auscultation good air entry bilateral. Heart sounds unremarkable Abdomen soft nontender Extremity exam was no edema Neurologically awake alert - Labs CBC & Chem 7: 10/30/22 08:08 10/30/22 08:08 Labs: Abnormal Lab Results - Last 24 Hours (Table) 10/30/22 10/30/22 Range/Units 08:08 08:08 WBC 16.1 H (3.8-10.6) k/uL Plt Count 515 H (150-450) k/uL Carbon Dioxide 34 H (22-30) mmol/L BUN 22 H (7-17) mg/dL Glucose 119 H (74-99) mg/dL Microbiology - Last 24 Hours (Table) 10/26/22 07:25 Blood Culture - Preliminary Blood No Growth after 96 hours Assessment and Plan Plan: Impression 1. Hypercalcemia secondary to vitamin D and calcium intake. Corrected back to normal, concern because of the paraproteinemia on serum immunoelectrophoresis 2. Paraproteinemia IgG. A light chains seen on serum immunofixation electrophoresis 3. Cavitary lesion in the lung with MYESHA on bronchoscopy in 2020 lost to follow- up and started back on treatment as per ID. Tolerating it well Recommendation 1. No further intervention for now. Given her age and normal renal function the paraproteinemia can be followed up
--- NOTE | 2022-10-30 12:40 | P.PN ---
Progress Note - Text Progress Note Date: 10/30/22 87 year old female with medical history of COPD, pulmonary fibrosis, hypertension, bladder cancer. Patient presents to the hospital sent in from [facility] with altered mental status having increased confusion and also hallucinations. Patient is confused at baseline. 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 Patient was not treated at that time. Brain CT shows age related atrophic and chronic small vessel ischemic change without acute intracranial process seen at this time. Chest xray showing similar parenchymal fibrotic changes with nonspecific 4.3 cm thick-walled cavitary lesion in the superior right lower lobe redemonstrated. Labs reveal white count of 10.9 which has normalized. Potassium is 5.2, calcium 11.9, magnesium 1.3. Kidney function is stable. Urinalysis showing no infection. Patient is admitted for confusion, elevated calcium level and lung mass. 10/27/2022 Patient evaluated in follow up. No acute events overnight. Patient is more awake and alert today. She is confused. She remains on nasal cannula on 3L, patient does wear 2L of chronic oxygen. Family reports issues with patient removed oxygen where she resides and becoming hypoxic. There is no reported history of dementia. Patient was up in the chair today and did remove oxygen and take herself off the chair alarm and was found on knees with no injury sustained. Patient reports that she was "trying to kick a ball." Family feels her mentation has improved since yesterday. Not at baseline. Had a Chest CT done showing cavitary lesion with an air-filled fluid level in the posterior right mid lung. Additional lung nodules and increased lung markings are within the right lung. Patient was on IV solumedrol 60 mg Q6 which has been decreased. White count up to 20 likely from steroid use. Potassium 3.9 today, kidney function stable. 10/28/2022 Patient is seen and evaluated in follow-up today with daughter at the bedside currently sitting up in the chair and is calm and cooperative at this time. Patient is pleasantly confused and being monitored closely with infectious disease following. Patient also being followed by pulmonary continued on IV steroids with continued elevated white count, possibly a component of steroid- induced leukocytosis. Patient is afebrile. Her calcitonin was within normal limits. There is concerned initially for this cavitary lesion of which family reports has been known about does not want to pursue heroic measures although is agreeable to antibiotic recommendations. Infectious disease starting the patient on rifampin as well as Zithromax. Recommend follow-up labs. Patient with significant weakness and working on going to [facility] and continues to wait for insurance auth. 10/29/2022 Patient seen and evaluated by 10, patient's breathing has improved. Continue current antibiotic regimen. Patient waiting discharge to rehab facility 10/30: No significant overnight event, white cell count continued to improve REVIEW OF SYSTEMS: CONSTITUTIONAL: No fever, no malaise, no fatigue. HEENT: No recent visual problems or hearing problems. Denied any sore throat. CARDIOVASCULAR: No chest pain, orthopnea, PND, no palpitations, no syncope. PULMONARY: No shortness of breath, no cough, no hemoptysis. GASTROINTESTINAL: No diarrhea, no nausea, no vomiting, no abdominal pain. NEUROLOGICAL: No headaches, no weakness, no numbness. HEMATOLOGICAL: Denies any bleeding or petechiae. GENITOURINARY: Denies any burning micturition, frequency, or urgency. MUSCULOSKELETAL/RHEUMATOLOGICAL: Denies any joint pain, swelling, or any muscle pain. ENDOCRINE: Denies any polyuria or polydipsia. PHYSICAL EXAMINATION: GENERAL: The patient is alert and oriented x 1 not in any acute distress. Well developed, well nourished. HEENT: Pupils are round and equally reacting to light. EOMI. No scleral icterus. No conjunctival pallor. Normocephalic, atraumatic. No pharyngeal erythema. No thyromegaly. CARDIOVASCULAR: S1 and S2 present. No murmurs, rubs, or gallops. PULMONARY: Chest is clear to auscultation, no wheezing or crackles. ABDOMEN: Soft, nontender, nondistended, normoactive bowel sounds. No palpable organomegaly. MUSCULOSKELETAL: No joint swelling or deformity. EXTREMITIES: No cyanosis, clubbing, or pedal edema. NEUROLOGICAL: Gross neurological examination did not reveal any focal deficits. SKIN: No rashes. Assessment and plan Acute metabolic encephalopathy secondary to hypercalcemia, improving Cavitary lesion of lung Frequent falls at home and fell while in hospital on 10/27 Hyperkalemia resolved Hypercalcemia from Vitamin D supplement, improved. 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 Family does not want to pursue with biopsy or further intervention of this known cavitary lesion Vitamin D3 discontinued and thiazide diuretic discontinued PT/OT recommending ECF for rehab with case management following and working on insurance authorization for [facility] which is currently pending Recommend monitor closely and will follow-up with consultations discharge planning
[2022-10-30] MEDS: rifAMPin 300 MG CAP PO SCH (16:05)
[2022-10-30] MEDS: ETHAMBUTOL 400 MG TAB PO SCH (16:05)
--- NOTE | 2022-10-30 16:48 | P.PN ---
Subjective Progress Note Date: 10/30/22 Principal diagnosis: Cavitatory lung lesion/MYESHA Patient is 87-year-old female with a past medical history significant for COPD hypertension hyperlipidemia pulmonary fibrosis and this patient also have a history of right lower lobe cavitary lesion for the patient did have bronchoscopy done on 12/25/2020 culture subsequently finalized with MYESHA , patient subsequently lost for follow-up with his evaluation in the hospital for UTI at that point Daughter has refused CAT scan patient did have CT of the chest completed on 10/26/2022,Which did shows cavitatory lesion with air-fluid level posterior right mid lung condition lung nodules increased lung markings On today's evaluation that is 10/30/2022, the patient remains to be afebrile, the patient is breathing comfortably on 3L nasal cannula oxygen , the patient denies any chest pain , the patient denies any worsening cough or sputum production, the patient denies nausea no vomiting no abdominal pain no diarrhea Objective - Vital Signs Vital signs: Vital Signs Temp 97.8 F 10/30/22 12:11 Pulse 85 10/30/22 12:56 Resp 17 10/30/22 12:11 BP 176/80 10/30/22 12:11 Pulse Ox 96 10/30/22 12:11 FiO2 Intake & Output 10/29/22 10/30/22 10/30/22 18:59 06:59 18:59 Intake Total 354 560 Output Total 400 500 Balance -46 60 Intake: Oral 354 560 Output: Urine 400 500 Other: Voiding Method Diaper Toilet Toilet Incontinent Diaper Diaper Incontinent Incontinent # Voids 1 # Bowel Movements 0 - Exam GENERAL DESCRIPTION: An elderly female lying in bed in no distress RESPIRATORY SYSTEM: Unlabored breathing , coarse breath sounds bilaterally HEART: S1 S2 regular rate and rhythm , ABDOMEN: Soft , no tenderness EXTREMITIES: No edema feet - Labs CBC & Chem 7: 10/30/22 08:08 10/30/22 08:08 Labs: Abnormal Lab Results - Last 24 Hours (Table) 10/30/22 10/30/22 Range/Units 08:08 08:08 WBC 16.1 H (3.8-10.6) k/uL Plt Count 515 H (150-450) k/uL Carbon Dioxide 34 H (22-30) mmol/L BUN 22 H (7-17) mg/dL Glucose 119 H (74-99) mg/dL Microbiology - Last 24 Hours (Table) 10/26/22 07:25 Blood Culture - Preliminary Blood No Growth after 96 hours Assessment and Plan (1) Cavitary lesion of lung Current Visit: Yes Status: Acute Code(s): J98.4 - OTHER DISORDERS OF LUNG SNOMED Code(s): 048030466 (2) MYESHA (mycobacterium avium-intracellulare) Current Visit: Yes Status: Acute Code(s): A31.0 - PULMONARY MYCOBACTERIAL INFECTION SNOMED Code(s): 987215847 Plan: 1patient is 87-year-old female with a past medical history sniffing and for right lower lobe cavitary lesion for which the patient did have a bronchoscopy back in 2020 and cultures were positive for MYESHA however the patient was subsequently lost to follow-up and on her last admission to the hospital the patient and daughter did not want any further investigation and she refused CAT scan of the chest which was ordered and per discussion with her she does not want any further investigation to be done or any treatment offered as of 10/26 2- patient did have CT of the chest on 10/26/2022 which did shows right mid lung cavitatory lesion with air-fluid level concern for possible abscess however the patient is currently not running any fever did have a normal pro-calcitonin clinically doubt bacterial pneumonia or abscess and more likely dealing with MYESHA infection 3-patient have been tolerating rifampin Zithromax and ethambutol which was started as of 10/28/2022, will be continued on discharge and close patient follow-up Time with Patient: Less than 30
--- NOTE | 2022-10-31 08:26 | XR ---
EXAMINATION TYPE: XR chest 1V portable DATE OF EXAM: 10/31/2022 COMPARISON: 10/28/2022 INDICATION: MAC infection TECHNIQUE: Single frontal view of the chest is obtained. FINDINGS: The heart size is normal. The pulmonary vasculature is normal. Right perihilar and mild right lower lobe infiltrates are present. Findings appear stable. IMPRESSION: 1. Stable lung infiltrates right lung. Continued follow-up is recommended.
[2022-10-31] MEDS: IPRATROPIUM 0.5 MG/2.5 ML NEBU INHALATION SCH ×3 (08:32→15:45)
[2022-10-31] MEDS: ALBUTEROL NEBULIZED 2.5 MG/3 ML INHALATION SCH ×3 (08:32→15:45)
[2022-10-31] MEDS: SYMBICORT 160-4.5 MCG INHALER INHALATION SCH ×2 (08:32→20:29)
[2022-10-31] MEDS: lisinopriL 20 MG TAB PO SCH (09:16)
[2022-10-31] MEDS: ASPIRIN 81 MG PO SCH (09:16)
[2022-10-31] MEDS: hydrALAZINE HCL 50 MG TAB PO SCH ×3 (09:17→20:45)
[2022-10-31] MEDS: TAMSULOSIN 0.4 MG CAP.ER.24H PO SCH (09:17)
[2022-10-31] MEDS: ATORVASTATIN 20 MG TAB PO SCH (09:17)
[2022-10-31 11:09] LABS: African American GFR (CKD) 89.7 (60.0-200.0); Anion Gap 8.1 mmol/L (10.00-18.00); BUN/Creat Ratio 25.43 Ratio (12.00-20.00); Blood Urea Nitrogen 17.8 mg/dL (9.0-27.0); Calcium 9.1 mg/dL (8.7-10.3); Carbon Dioxide 34.9 mmol/L (20.0-27.5); Non-African American GFR(CKD) 77.4 (60.0-200.0); Potassium 3.7 mmol/L (3.5-5.5)
[2022-10-31 11:11] LABS: HCT 43.7 % (37.2-46.3); HGB 13.6 g/dL (12.0-15.0); MCH 29.1 pg (27.0-32.0); MCHC 31.1 g/dL (32.0-37.0); MCV 93.6 fL (80.0-97.0); Mean Platelet Volume 11.1 fL (9.5-12.2); NRBC Per 100 WBC 0 /100 WBCS (0.0-0.0); Platelet Count 507 X 10*3/uL (140-440); RBC 4.67 X 10*6/uL (4.10-5.20); RDW 16.9 % (11.5-14.5); WBC 14.62 X 10*3/uL (4.50-10.00)
--- NOTE | 2022-10-31 11:22 | P.PN ---
Subjective Progress Note Date: 10/31/22 I'm seeing this patient in new consultation today 10/26/2022 for a suspected lung mass found on imaging. 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 Patient reportedly lives at [facility]. She does follow with Dr. Glasgow in the office for her COPD and pulmonary fibrosis. Patient did have a recent hospitalization for a urinary tract infection and COPD exacerbation September 19 through September 24. Patient is currently alert and pleasantly confused. She is a poor historian. She is lying in bed, on 2 L nasal cannula, in no acute distress. Apparently, patient presented to the emergency room with this confusion and hallucinations over the past few days. Patient denies any pulmonary complaints or fever. Brain CT without contrast was negative for any acute intracranial processes. Chest x-ray on arrival showed chronic parenchymal fibrotic changes along with a nonspecific 4.3 cm thick walled cavitary lesion in the right superior lower lobe which was redemonstrated on previous exam. No acute cardiopulmonary processes seen. Patient had undergone bronchoscopy with Dr. 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 Patient did receive treatment per infectious disease. CBC on arrival showed a WBC count of 10.9, hemoglobin 14.8, hematocrit 46.1, platelets 41,000. Patient's ABG showed a pH of 7.37, pCO2 of 66. BMP on arrival shows sodium 138, potassium 5.2, chloride 94, serum CO2 chronically elevated at 40, BUN 28, creatinine 0.7, glucose 99. Patient's calcium was mildly elevated at 11.9. She denies any bone pain or known active malignancies. Pro calcitonin level was mildly elevated at 0.1. Urinalysis did not suggest urinary tract infection. Patient is afebrile. Normal saline is infusing at 100 mL per hour. Vital signs are stable at this time. Patient was reevaluated today on 10/27/2022, doing well, not in any distress, she is on 3 L nasal cannula and O2 sats is 94%. Patient was made aware of the results of her CT of the chest, there is a cavitary lesion in the right lung, with air fluid level, it is posteriorly, it could be a lung abscess or could be a malignant lesion. I favor lung abscess, has been present for quite some time, it is nothing new patient made aware of the findings, and extremely reluctant to have any intervention including diagnostic bronchoscopy or CT-guided needle aspiration of the abscess. Considering her overall status, mostly supportive care measures are recommended. Pro calcitonin level is 0.08. Calcium is 9.2 and her PTH is normal. WBC count is 20.1. Patient was seen by infectious disease, and notes from infectious disease was noted and reviewed/appreciated. Reevaluated today on 10/28/2022, patient had mostly symptoms of chills last night, but no cough, no fever, no hemoptysis, her CBC did show evidence of leukocytosis. Considering her symptoms may have to consider antibiotics, infectious disease is following on this patient. Patient again declined CT- guided needle aspiration or bronchoscopy she had previous history of atypical mycobacterial infection. Reevaluated today on 10/29/2022, patient is now agreeable to go ahead and start treatment for atypical mycobacterial infection she was started by infectious disease on ethambutol, rifampin, and on Zithromax. So far so good, the patient is doing well, WBC count is 19.7 hemoglobin 13.8 in excess abnormal renal profile is normal Reevaluated today on , patient is basically about the same, except she is complaining of generalized weakness and she cannot ambulate freely, she feels she is getting weaker since he has been in the hospital, and that's not unexpected. Patient is now receiving multiple antibiotics for presumptive atyp ical mycobacterial infection and I'm hoping in the next 2 days patient could be considered for rehab placement. Or ECF. WBC count is 11.6 hemoglobin 11.8 lites are normal renal profile is normal, calcium was 9.2 The patient is seen today 10/31/2022 in follow-up on the regular medical floor. She is currently sitting up in bed. Awake and alert in no acute distress. Still with some confusion. commercial director at the bedside. No worsening shortness of breath, cough or congestion. No IV fluids. Maintaining O2 saturations in the 90s on 2 L/m per nasal cannula. She is continued on antibiotics for underlying suspected mycobacterial infection. Chest x-ray reveals stable infiltrates of the right lung. Blood cultures reveal no growth. White count 14.6. Hemoglobin 13.6. Platelets 507. Sodium 143. Potassium 3.7. Bicarb 35. BUN 18. Creatinine 0.7. Blood sugar 74. Continued on rifampin and ethambutol per ID services Objective - Vital Signs Vital signs: Vital Signs Temp 97.7 F 10/31/22 07:17 Pulse 84 10/31/22 08:34 Resp 18 10/31/22 07:17 BP 180/80 10/31/22 07:17 Pulse Ox 94 L 10/31/22 08:34 FiO2 Intake & Output 10/30/22 10/31/22 10/31/22 18:59 06:59 18:59 Intake Total 560 Output Total 1700 Balance -1140 Weight 45.1 kg Intake: Oral 560 Output: Urine 1700 Other: Voiding Method Toilet Toilet Toilet Diaper Diaper Diaper Incontinent Incontinent Incontinent # Voids 4 1 # Bowel Movements 0 0 - Exam GENERAL EXAM: Alert, slightly confused, 87-year-old female on 2 L nasal cannula comfortable in no apparent distress. HEAD: Normocephalic. EYES: Normal reaction of pupils, equal size. NOSE: Clear with pink turbinates. THROAT: No erythema or exudates. NECK: No masses, no JVD. CHEST: No chest wall deformity. LUNGS: Equal air entry with few scattered rhonchi. CVS: S1 and S2 normal with no audible murmur, regular rhythm. ABDOMEN: No hepatosplenomegaly, normal bowel sounds, no guarding or rigidity. SPINE: No scoliosis or deformity SKIN: No rashes CENTRAL NERVOUS SYSTEM: No focal deficits, tone is normal in all 4 extremities. EXTREMITIES: There is no peripheral edema. No clubbing, no cyanosis. Peripheral pulses are intact. - Labs CBC & Chem 7: 10/31/22 05:55 10/31/22 05:55 Labs: Abnormal Lab Results - Last 24 Hours (Table) 10/31/22 10/31/22 Range/Units 05:55 05:55 WBC 14.62 H (4.50-10.00) X 10*3/uL MCHC 31.1 L (32.0-37.0) g/dL RDW 16.9 H (11.5-14.5) % Plt Count 507 H (140-440) X 10*3/uL Carbon Dioxide 34.9 H (20.0-27.5) mmol/L Anion Gap 8.10 L (10.00-18.00) mmol/L BUN/Creatinine Ratio 25.43 H (12.00-20.00) Ratio Microbiology - Last 24 Hours (Table) 10/26/22 07:25 Blood Culture - Preliminary Blood No Growth after 120 hours Assessment and Plan Assessment: Acute on chronic hypoxic and hypercapnic respiratory failure with a history of atypical mycobacterial infection. Currently on ethambutol and rifampin. Add azithromycin 500 mg by mouth Monday Acute hypercalcemia, could be related to underlying malignancy Right lung cavitary lesion, likely infectious in nature although the possibility of malignancy is not entirely ruled out could be a cavitating carcinoma. Acute toxic metabolic encephalopathy with mental status change, resolved. Could be related to above also be related to hypercalcemia on presentation Benign essential hypertension Dyslipidemia History of bowel resection Plan: The patient was seen and evaluated Chest x-ray, labs and medications reviewed Add azithromycin 500 mg every Monday Continue rifampin and ethambutol Cleared for discharge from the pulmonary standpoint Plan is for subacute rehabilitation possibly [facility] I have personally seen and examined the patient, performed the documentation and the assessment and plan as written. Number of minutes spent on the visit: 10.
[2022-10-31] MEDS ORDERED: AZITHROMYCIN 500 MG TAB PO SCH (11:30)
[2022-10-31 11:34] LABS: Free Kappa Lt Chain Qnt, Serum 1.46 mg/dL (0.33-1.94); Free Lambda Lt Chain Qnt, Seru 1.21 mg/dL (0.57-2.63)
--- NOTE | 2022-10-31 12:00 | P.PN ---
Subjective Progress Note Date: 10/31/22 Principal diagnosis: Cavitated lesion of lungs 87 year old female with medical history of COPD, pulmonary fibrosis, hypertension, bladder cancer. Patient presents to the hospital sent in from [facility] with altered mental status having increased confusion and also hallucinations. Patient is confused at baseline. 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 Patient was not treated at that time. Brain CT shows age related atrophic and chronic small vessel ischemic change without acute intracranial process seen at this time. Chest xray showing similar parenchymal fibrotic changes with nonspecific 4.3 cm thick-walled cavitary lesion in the superior right lower lobe redemonstrated. Labs reveal white count of 10.9 which has normalized. Potassium is 5.2, calcium 11.9, magnesium 1.3. Kidney function is stable. Urinalysis showing no infection. Patient is admitted for confusion, elevated calcium level and lung mass. 10/27/2022 Patient evaluated in follow up. No acute events overnight. Patient is more awake and alert today. She is confused. She remains on nasal cannula on 3L, patient do es wear 2L of chronic oxygen. Family reports issues with patient removed oxygen where she resides and becoming hypoxic. There is no reported history of dementia. Patient was up in the chair today and did remove oxygen and take herself off the chair alarm and was found on knees with no injury sustained. Patient reports that she was "trying to kick a ball." Family feels her mentation has improved since yesterday. Not at baseline. Had a Chest CT done showing cavitary lesion with an air-filled fluid level in the posterior right mid lung. Additional lung nodules and increased lung markings are within the right lung. Patient was on IV solumedrol 60 mg Q6 which has been decreased. White count up t o 20 likely from steroid use. Potassium 3.9 today, kidney function stable. 10/28/2022 Patient is seen and evaluated in follow-up today with daughter at the bedside currently sitting up in the chair and is calm and cooperative at this time. Patient is pleasantly confused and being monitored closely with infectious disease following. Patient also being followed by pulmonary continued on IV mima roids with continued elevated white count, possibly a component of steroid- induced leukocytosis. Patient is afebrile. Her calcitonin was within normal limits. There is concerned initially for this cavitary lesion of which family reports has been known about does not want to pursue heroic measures although is agreeable to antibiotic recommendations. Infectious disease starting the patient on rifampin as well as Zithromax. Recommend follow-up labs. Patient with significant weakness and working on going to [facility] and continues to wait for insurance auth. 10/29/2022 Patient seen and evaluated by 10, patient's breathing has improved. Continue current antibiotic regimen. Patient waiting discharge to rehab facility 10/30: No significant overnight event, white cell count continued to improve 10/31: Patient seen and evaluated bedside white cell count continued to improve, vitals reviewed remains on room air hemodynamically stable waiting for discharge to subacute rehab REVIEW OF SYSTEMS: CONSTITUTIONAL: No fever, no malaise, no fatigue. HEENT: No recent visual problems or hearing problems. Denied any sore throat. CARDIOVASCULAR: No chest pain, orthopnea, PND, no palpitations, no syncope. PULMONARY: No shortness of breath, no cough, no hemoptysis. GASTROINTESTINAL: No diarrhea, no nausea, no vomiting, no abdominal pain. NEUROLOGICAL: No headaches, no weakness, no numbness. HEMATOLOGICAL: Denies any bleeding or petechiae. GENITOURINARY: Denies any burning micturition, frequency, or urgency. MUSCULOSKELETAL/RHEUMATOLOGICAL: Denies any joint pain, swelling, or any muscle pain. ENDOCRINE: Denies any polyuria or polydipsia. PHYSICAL EXAMINATION: GENERAL: The patient is alert and oriented x 1 not in any acute distress. Well developed, well nourished. HEENT: Pupils are round and equally reacting to light. EOMI. No scleral icterus. No conjunctival pallor. Normocephalic, atraumatic. No pharyngeal erythema. No thyromegaly. CARDIOVASCULAR: S1 and S2 present. No murmurs, rubs, or gallops. PULMONARY: Chest is clear to auscultation, no wheezing or crackles. ABDOMEN: Soft, nontender, nondistended, normoactive bowel sounds. No palpable organomegaly. MUSCULOSKELETAL: No joint swelling or deformity. EXTREMITIES: No cyanosis, clubbing, or pedal edema. NEUROLOGICAL: Gross neurological examination did not reveal any focal deficits. SKIN: No rashes. Assessment and plan Acute metabolic encephalopathy secondary to hypercalcemia, improving Cavitary lesion of lung Frequent falls at home and fell while in hospital on 10/27 Hyperkalemia resolved Hypercalcemia from Vitamin D supplement, improved. 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 Family does not want to pursue with biopsy or further intervention of this known cavitary lesion Vitamin D3 discontinued and thiazide diuretic discontinued PT/OT recommending ECF for rehab with case management following and working on insurance authorization for [facility] which is currently pending Recommend monitor closely and will follow-up with consultations discharge planning Objective - Vital Signs Vital signs: Vital Signs Temp 97.7 F 10/31/22 11:47 Pulse 79 10/31/22 11:47 Resp 16 10/31/22 11:47 BP 132/70 10/31/22 11:47 Pulse Ox 95 10/31/22 11:47 FiO2 Intake & Output 10/30/22 10/31/22 10/31/22 18:59 06:59 18:59 Intake Total 560 Output Total 1700 Balance -1140 Weight 45.1 kg Intake: Oral 560 Output: Urine 1700 Other: Voiding Method Toilet Toilet Toilet Diaper Diaper Diaper Incontinent Incontinent Incontinent # Voids 4 1 # Bowel Movements 0 0 - Labs CBC & Chem 7: 10/31/22 05:55 10/31/22 05:55 Labs: Abnormal Lab Results - Last 24 Hours (Table) 10/31/22 10/31/22 Range/Units 05:55 05:55 WBC 14.62 H (4.50-10.00) X 10*3/uL MCHC 31.1 L (32.0-37.0) g/dL RDW 16.9 H (11.5-14.5) % Plt Count 507 H (140-440) X 10*3/uL Carbon Dioxide 34.9 H (20.0-27.5) mmol/L Anion Gap 8.10 L (10.00-18.00) mmol/L BUN/Creatinine Ratio 25.43 H (12.00-20.00) Ratio Microbiology - Last 24 Hours (Table) 10/26/22 07:25 Blood Culture - Preliminary Blood No Growth after 120 hours
[2022-10-31] MEDS: ETHAMBUTOL 400 MG TAB PO SCH (16:13)
[2022-10-31] MEDS: rifAMPin 300 MG CAP PO SCH (16:13)
--- NOTE | 2022-10-31 16:50 | P.PN ---
Subjective Progress Note Date: 10/31/22 Principal diagnosis: Cavitatory lung lesion/MYESHA Patient is 87-year-old female with a past medical history significant for COPD hypertension hyperlipidemia pulmonary fibrosis and this patient also have a history of right lower lobe cavitary lesion for the patient did have bronchoscopy done on 12/25/2020 culture subsequently finalized with MYESHA , patient subsequently lost for follow-up with his evaluation in the hospital for UTI at that point Daughter has refused CAT scan patient did have CT of the chest completed on 10/26/2022,Which did shows cavitatory lesion with air-fluid level posterior right mid lung condition lung nodules increased lung markings On today's evaluation that is 10/31/2022, the patient continues to be afebrile, the patient is breathing comfortably on room air , the patient denies any chest pain , the patient denies any worsening cough or sputum production, the patient denies nausea no vomiting no abdominal pain no diarrhea Objective - Vital Signs Vital signs: Vital Signs Temp 97.7 F 10/31/22 11:47 Pulse 79 10/31/22 11:47 Resp 16 10/31/22 11:47 BP 132/70 10/31/22 11:47 Pulse Ox 95 10/31/22 11:47 FiO2 Intake & Output 10/30/22 10/31/22 10/31/22 18:59 06:59 18:59 Intake Total 560 Output Total 1700 Balance -1140 Weight 45.1 kg Intake: Oral 560 Output: Urine 1700 Other: Voiding Method Toilet Toilet Toilet Diaper Diaper Diaper Incontinent Incontinent Incontinent # Voids 4 1 # Bowel Movements 0 0 - Exam GENERAL DESCRIPTION: An elderly female lying in bed in no distress RESPIRATORY SYSTEM: Unlabored breathing , coarse breath sounds bilaterally HEART: S1 S2 regular rate and rhythm , ABDOMEN: Soft , no tenderness EXTREMITIES: No edema feet - Labs CBC & Chem 7: 10/31/22 05:55 10/31/22 05:55 Labs: Abnormal Lab Results - Last 24 Hours (Table) 10/31/22 10/31/22 Range/Units 05:55 05:55 WBC 14.62 H (4.50-10.00) X 10*3/uL MCHC 31.1 L (32.0-37.0) g/dL RDW 16.9 H (11.5-14.5) % Plt Count 507 H (140-440) X 10*3/uL Carbon Dioxide 34.9 H (20.0-27.5) mmol/L Anion Gap 8.10 L (10.00-18.00) mmol/L BUN/Creatinine Ratio 25.43 H (12.00-20.00) Ratio Microbiology - Last 24 Hours (Table) 10/26/22 07:25 Blood Culture - Preliminary Blood No Growth after 120 hours Assessment and Plan (1) Cavitary lesion of lung Current Visit: Yes Status: Acute Code(s): J98.4 - OTHER DISORDERS OF LUNG SNOMED Code(s): 423013478 (2) MYESHA (mycobacterium avium-intracellulare) Current Visit: Yes Status: Acute Code(s): A31.0 - PULMONARY MYCOBACTERIAL INFECTION SNOMED Code(s): 464443102 Plan: 1patient is 87-year-old female with a past medical history sniffing and for right lower lobe cavitary lesion for which the patient did have a bronchoscopy back in 2020 and cultures were positive for MYESHA however the patient was subsequently lost to follow-up and on her last admission to the hospital the patient and daughter did not want any further investigation and she refused CAT scan of the chest which was ordered and per discussion with her she does not want any further investigation to be done or any treatment offered as of 10/26/2022 2- patient did have CT of the chest on 10/26/2022 which did shows right mid lung cavitatory lesion with air-fluid level concern for possible abscess however the patient is currently not running any fever did have a normal pro-calcitonin clinically doubt bacterial pneumonia or abscess and more likely dealing with MYESHA infection 3-patient seems to have been tolerating rifampin Zithromax and ethambutol which was started as of 10/28/2022, prescription has been sent to the pharmacy for outpatient medication and the patient will follow-up in the office in 2-4 weeks, discussed with the admitting team Time with Patient: Less than 30
[2022-11-01] MEDS ORDERED: IPRATROPIUM-ALBUTEROL 3 ML NEB INHALATION PRN (08:00)
[2022-11-01 08:08] VITALS: TEMP 98.1
[2022-11-01] MEDS: IPRATROPIUM-ALBUTEROL 3 ML NEB INHALATION SCH ×2 (08:52→11:50)
[2022-11-01] MEDS: SYMBICORT 160-4.5 MCG INHALER INHALATION SCH (08:52)
[2022-11-01] MEDS: TAMSULOSIN 0.4 MG CAP.ER.24H PO SCH (09:53)
[2022-11-01] MEDS: hydrALAZINE HCL 50 MG TAB PO SCH (09:53)
[2022-11-01] MEDS: ATORVASTATIN 20 MG TAB PO SCH (09:53)
[2022-11-01] MEDS: ASPIRIN 81 MG PO SCH (09:54)
[2022-11-01] MEDS: lisinopriL 20 MG TAB PO SCH (09:54)
--- NOTE | 2022-11-01 10:21 | P.DS ---
Providers Date of admission: 10/25/22 16:32 Expected date of discharge: 11/01/22 Attending physician: Carrillo Dahl Consults: 10/25/22 16:29 Consult Physician Routine Consulting Provider: Charlie Glasgow Consult Reason/Comments: Lung mass Do you want consulting provider notified?: Yes Consult Physician Routine Consulting Provider: Loni Shah Consult Reason/Comments: Hypercalcemia Do you want consulting provider notified?: Yes 10/26/22 10:11 Consult Physician Routine Consulting Provider: Kindra Davis Consult Reason/Comments: History of MAC infection Do you want consulting provider notified?: Yes [facility] [place] Course: * 87-year-old female with a past medical history significant for COPD hypertension hyperlipidemia pulmonary fibrosis and this patient also have a history of right lower lobe cavitary lesion for the patient did have bronchoscopy done on 12/25/2020 culture subsequently finalized with MYESHA patient did have a follow-up office visit ID on 03/30/2021 patient was not symptomatic and high risk of drug toxicity patient was advised a repeat CAT scan and if there was any progression of the disease patient will be offered treatment however the patient was subsequently lost to follow-up patient was recently admitted at this facility end of August/patient now presenting to the hospital beginning of September 2022 for UTI patient at that time was evaluated in consultation and detailed discussion with the patient daughter we did advise repeat CT of the chest however the patient daughter refused the CAT scan and did not want the patient to undergo any further investigation and treatment for it, * patient now presenting to the hospital for evaluation of increased confusion and hallucination with symptom has been persistently getting worse over the last few days no clear history of any fever or any chills no worsening cough or sputum production no vomiting or diarrhea has been reported patient on presentation to the hospital was afebrile patient did have a white count of 10.9 with a left shift kidney function has been normal liver enzymes are normal urine has been negative patient did have a chest x-ray similar chronic parenchymal fibrotic changes nonspecific with 4.3 cm thick-walled cavitary lesion in the superior right lower lobe due to months * Consultations obtained from infectious disease, pulmonary medicine, nephrology * 10/27/2022 Patient evaluated in follow up. No acute events overnight. Patient is more awake and alert today. She is confused. She remains on nasal cannula on 3L, patient does wear 2L of chronic oxygen. Family reports issues with patient removed oxygen where she resides and becoming hypoxic. There is no reported history of dementia. Patient was up in the chair today and did remove oxygen and take herself off the chair alarm and was found on knees with no injury sustained. Patient reports that she was "trying to kick a ball." Family feels her mentation has improved since yesterday. Not at baseline. Had a Chest CT done showing cavitary lesion with an air-filled fluid level in the posterior right mid lung. Additional lung nodules and increased lung markings are within the right lung. Patient was on IV solumedrol 60 mg Q6 which has been decreased. White count up to 20 likely from steroid use. Potassium 3.9 today, kidney function stable. 10/28/2022 Patient is seen and evaluated in follow-up today with daughter at the bedside currently sitting up in the chair and is calm and cooperative at this time. Patient is pleasantly confused and being monitored closely with infectious disease following. Patient also being followed by pulmonary continued on IV steroids with continued elevated white count, possibly a component of steroid- induced leukocytosis. Patient is afebrile. Her calcitonin was within normal limits. There is concerned initially for this cavitary lesion of which family reports has been known about does not want to pursue heroic measures although is agreeable to antibiotic recommendations. Infectious disease starting the patient on rifampin as well as Zithromax. Recommend follow-up labs. Patient with significant weakness and working on going to [facility] and continues to wait for insurance auth. 10/29/2022 Patient seen and evaluated by 10, patient's breathing has improved. Continue current antibiotic regimen. Patient waiting discharge to rehab facility 10/30: No significant overnight event, white cell count continued to improve 10/31: Patient seen and evaluated bedside white cell count continued to improve, vitals reviewed remains on room air hemodynamically stable waiting for discharge to subacute rehab 11/01: Okay to discharge to rehab PHYSICAL EXAMINATION: GENERAL: The patient is alert and oriented x 1 not in any acute distress. Well developed, well nourished. HEENT: Pupils are round and equally reacting to light. EOMI. No scleral icterus. No conjunctival pallor. Normocephalic, atraumatic. No pharyngeal erythema. No thyromegaly. CARDIOVASCULAR: S1 and S2 present. No murmurs, rubs, or gallops. PULMONARY: Chest is clear to auscultation, no wheezing or crackles. ABDOMEN: Soft, nontender, nondistended, normoactive bowel sounds. No palpable organomegaly. MUSCULOSKELETAL: No joint swelling or deformity. EXTREMITIES: No cyanosis, clubbing, or pedal edema. NEUROLOGICAL: Gross neurological examination did not reveal any focal deficits. SKIN: No rashes. Assessment and plan Acute metabolic encephalopathy secondary to hypercalcemia, improving Cavitary lesion of lung Frequent falls at home and fell while in hospital on 10/27 Hyperkalemia resolved Hypercalcemia from Vitamin D supplement, improved. 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 Family does not want to pursue with biopsy or further intervention of this known cavitary lesion thiazide diuretic discontinued PT/OT recommending ECF for rehab with case management following and working on insurance authorization for [facility] which is currently pending Outpatient follow-up with infectious disease Patient Condition at Discharge: Fair Plan - Discharge Summary Discharge Rx Participant: No New Discharge Prescriptions: New Ethambutol [Myambutol] 800 mg PO DAILY 6 Days #30 tablet rifAMPin [Rifampin] 600 mg PO DAILY 6 Days #60 cap Azithromycin [Zithromax] 500 mg IV DAILY 6 Days #30 each hydrALAZINE HCL [Apresoline] 50 mg PO TID tab Budesonide-Formot 160-4.5 Mcg [Symbicort 160-4.5 Mcg Inhaler] 2 puff INHALATION RT-BID each Continue lisinopriL [Zestril] 20 mg PO DAILY@0800 Ipratropium-Albuterol Nebulize [Duoneb 0.5 mg-3 mg/3 ml Soln] 3 ml INHALATION RT-Q6H PRN PRN Reason: Shortness Of Breath Cholecalciferol [Vitamin D3 (25 Mcg = 1000 Iu)] 50 mcg PO DAILY@0800 Multivit-Min/Iron/Folic/Lutein [Centrum Silver Women Tablet] 1 tab PO DAILY@0800 Tamsulosin [Flomax] 0.4 mg PO DAILY@0800 Verapamil HCl [Verapamil ER] 120 mg PO DAILY@0800 Atorvastatin [Lipitor] 20 mg PO DAILY@0800 Aspirin EC [Ecotrin Low Dose] 81 mg PO DAILY@0800 Fluticasone Propion/Salmeterol [Advair 250-50 Diskus] 1 puff INHALATION RT- BID Discontinued hydroCHLOROthiazide [Hydrodiuril] 25 mg PO DAILY@0800 Discharge Medication List Atorvastatin [Lipitor] 20 mg PO DAILY@0800 12/23/20 [History] Verapamil HCl [Verapamil ER] 120 mg PO DAILY@0812/23/20 [History] lisinopriL [Zestril] 20 mg PO DAILY@0800 08/19/22 [History] Ipratropium-Albuterol Nebulize [Duoneb 0.5 mg-3 mg/3 ml Soln] 3 ml INHALATION RT-Q6H PRN 09/19/22 [History] Aspirin EC [Ecotrin Low Dose] 81 mg PO DAILY@0800 10/25/22 [History] Cholecalciferol [Vitamin D3 (25 Mcg = 1000 Iu)] 50 mcg PO DAILY@0810/25/22 [History] Fluticasone Propion/Salmeterol [Advair 250-50 Diskus] 1 puff INHALATION RT-BID 10/25/22 [History] Multivit-Min/Iron/Folic/Lutein [Centrum Silver Women Tablet] 1 tab PO DAILY@0800 10/25/22 [History] Tamsulosin [Flomax] 0.4 mg PO DAILY@0810/25/22 [History] Azithromycin [Zithromax] 500 mg IV DAILY 6 Days #30 each 10/31/22 [Rx] Ethambutol [Myambutol] 800 mg PO DAILY 6 Days #30 tablet 10/31/22 [Rx] rifAMPin [Rifampin] 600 mg PO DAILY 6 Days #60 cap 10/31/22 [Rx] Budesonide-Formot 160-4.5 Mcg [Symbicort 160-4.5 Mcg Inhaler] 2 puff INHALATION RT-BID each 11/01/22 [Rx] hydrALAZINE HCL [Apresoline] 50 mg PO TID tab 11/01/22 [Rx] Follow up Appointment(s)/Referral(s): Margo Tiwari MD [Primary Care Provider] - 1-2 days Kindra Davis MD [STAFF PHYSICIAN] - 2 Weeks Discharge Disposition: TRANSFER TO SNF/ECF
--- NOTE | 2022-11-01 11:12 | P.PN ---
Subjective Progress Note Date: 11/01/22 I'm seeing this patient in new consultation today 10/26/2022 for a suspected lung mass found on imaging. 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 Patient reportedly lives at [facility]. She does follow with Dr. Glasgow in the office for her COPD and pulmonary fibrosis. Patient did have a recent hospitalization for a urinary tract infection and COPD exacerbation September 19 through September 24. Patient is currently alert and pleasantly confused. She is a poor historian. She is lying in bed, on 2 L nasal cannula, in no acute distress. Apparently, patient presented to the emergency room with this confusion and hallucinations over the past few days. Patient denies any pulmonary complaints or fever. Brain CT without contrast was negative for any acute intracranial processes. Chest x-ray on arrival showed chronic parenchymal fibrotic changes along with a nonspecific 4.3 cm thick walled cavitary lesion in the right superior lower lobe which was redemonstrated on previous exam. No acute cardiopulmonary processes seen. Patient had undergone bronchoscopy with Dr. 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 Patient did receive treatment per infectious disease. CBC on arrival showed a WBC count of 10.9, hemoglobin 14.8, hematocrit 46.1, platelets 41,000. Patient's ABG showed a pH of 7.37, pCO2 of 66. BMP on arrival shows sodium 138, potassium 5.2, chloride 94, serum CO2 chronically elevated at 40, BUN 28, creatinine 0.7, glucose 99. Patient's calcium was mildly elevated at 11.9. She denies any bone pain or known active malignancies. Pro calcitonin level was mildly elevated at 0.1. Urinalysis did not suggest urinary tract infection. Patient is afebrile. Normal saline is infusing at 100 mL per hour. Vital signs are stable at this time. Patient was reevaluated today on 10/27/2022, doing well, not in any distress, she is on 3 L nasal cannula and O2 sats is 94%. Patient was made aware of the results of her CT of the chest, there is a cavitary lesion in the right lung, with air fluid level, it is posteriorly, it could be a lung abscess or could be a malignant lesion. I favor lung abscess, has been present for quite some time, it is nothing new patient made aware of the findings, and extremely reluctant to have any intervention including diagnostic bronchoscopy or CT-guided needle aspiration of the abscess. Considering her overall status, mostly supportive care measures are recommended. Pro calcitonin level is 0.08. Calcium is 9.2 and her PTH is normal. WBC count is 20.1. Patient was seen by infectious disease, and notes from infectious disease was noted and reviewed/appreciated. Reevaluated today on 10/28/2022, patient had mostly symptoms of chills last night, but no cough, no fever, no hemoptysis, her CBC did show evidence of leukocytosis. Considering her symptoms may have to consider antibiotics, infectious disease is following on this patient. Patient again declined CT- guided needle aspiration or bronchoscopy she had previous history of atypical mycobacterial infection. Reevaluated today on 10/29/2022, patient is now agreeable to go ahead and start treatment for atypical mycobacterial infection she was started by infectious disease on ethambutol, rifampin, and on Zithromax. So far so good, the patient is doing well, WBC count is 19.7 hemoglobin 13.8 in excess abnormal renal profile is normal Reevaluated today on , patient is basically about the same, except she is complaining of generalized weakness and she cannot ambulate freely, she feels she is getting weaker since he has been in the hospital, and that's not unexpected. Patient is now receiving multiple antibiotics for presumptive atyp ical mycobacterial infection and I'm hoping in the next 2 days patient could be considered for rehab placement. Or ECF. WBC count is 11.6 hemoglobin 11.8 lites are normal renal profile is normal, calcium was 9.2 The patient is seen today 10/31/2022 in follow-up on the regular medical floor. She is currently sitting up in bed. Awake and alert in no acute distress. Still with some confusion. asbestos abatement technician at the bedside. No worsening shortness of breath, cough or congestion. No IV fluids. Maintaining O2 saturations in the 90s on 2 L/m per nasal cannula. She is continued on antibiotics for underlying suspected mycobacterial infection. Chest x-ray reveals stable infiltrates of the right lung. Blood cultures reveal no growth. White count 14.6. Hemoglobin 13.6. Platelets 507. Sodium 143. Potassium 3.7. Bicarb 35. BUN 18. Creatinine 0.7. Blood sugar 74. Continued on rifampin and ethambutol per ID services The patient is seen today 11/01/2022 in follow-up on the regular medical floor. Currently up in a chair at the bedside. Awake and alert in no acute distress. Maintaining good O2 saturations in the 90s on 2 L/m per nasal cannula. Remains pleasantly confused. Continued on Symbicort, DuoNeb inhalations. Continued on rifampin, ethambutol and azithromycin. Blood cultures revealed no growth. Plan is for subacute rehabilitation post discharge. Objective - Vital Signs Vital signs: Vital Signs Temp 98.1 F 11/01/22 08:00 Pulse 80 11/01/22 09:03 Resp 15 11/01/22 08:00 BP 150/71 11/01/22 08:00 Pulse Ox 96 11/01/22 08:54 FiO2 Intake & Output 10/31/22 11/01/22 11/01/22 18:59 06:59 18:59 Intake Total 250 Balance 250 Weight 45.5 kg Intake: Oral 250 Other: Voiding Method Toilet Toilet Toilet Diaper Diaper Incontinent Incontinent # Voids 2 1 2 # Bowel Movements 1 - Exam GENERAL EXAM: Alert, slightly confused, 87-year-old female, up in a chair at the bedside, on 2 L nasal cannula, comfortable in no apparent distress. HEAD: Normocephalic. EYES: Normal reaction of pupils, equal size. NOSE: Clear with pink turbinates. THROAT: No erythema or exudates. NECK: No masses, no JVD. CHEST: No chest wall deformity. LUNGS: Equal air entry with few scattered rhonchi. CVS: S1 and S2 normal with no audible murmur, regular rhythm. ABDOMEN: No hepatosplenomegaly, normal bowel sounds, no guarding or rigidity. SPINE: No scoliosis or deformity SKIN: No rashes CENTRAL NERVOUS SYSTEM: No focal deficits, tone is normal in all 4 extremities. EXTREMITIES: There is no peripheral edema. No clubbing, no cyanosis. Peripheral pulses are intact. - Labs CBC & Chem 7: 10/31/22 05:55 10/31/22 05:55 Labs: Abnormal Lab Results - Last 24 Hours (Table) 10/31/22 Range/Units 05:55 WBC 14.62 H (4.50-10.00) X 10*3/uL MCHC 31.1 L (32.0-37.0) g/dL RDW 16.9 H (11.5-14.5) % Plt Count 507 H (140-440) X 10*3/uL Microbiology - Last 24 Hours (Table) 10/26/22 07:25 Blood Culture - Final Blood No Growth after 144 hours Assessment and Plan Assessment: Acute on chronic hypoxic and hypercapnic respiratory failure with a history of atypical mycobacterial infection. Currently on azithromycin, ethambutol and rifampin. Acute hypercalcemia, could be related to underlying malignancy Right lung cavitary lesion, likely infectious in nature although the possibility of malignancy is not entirely ruled out could be a cavitating carcinoma. Acute toxic metabolic encephalopathy with mental status change, resolved. Could be related to above also be related to hypercalcemia on presentation Benign essential hypertension Dyslipidemia History of bowel resection Plan: The patient was seen and evaluated Labs and medications reviewed Continue azithromycin, rifampin and ethambutol Cleared for discharge from the pulmonary standpoint Plan is for subacute rehabilitation possibly [facility] She is a DO NOT RESUSCITATE/DO NOT INTUBATE CODE STATUS I have personally seen and examined the patient, performed the documentation and the assessment and plan as written. Number of minutes spent on the visit: 10.
[2022-11-01 11:14] LABS: HCT 41.6 % (37.2-46.3); MCH 28.8 pg (27.0-32.0); MCHC 31.3 g/dL (32.0-37.0); MCV 92.2 fL (80.0-97.0); Mean Platelet Volume 10.8 fL (9.5-12.2); NRBC Per 100 WBC 0 /100 WBCS (0.0-0.0); Platelet Count 477 X 10*3/uL (140-440); RBC 4.51 X 10*6/uL (4.10-5.20); RDW 16.5 % (11.5-14.5); WBC 14.77 X 10*3/uL (4.50-10.00)
[2022-11-01 11:42] VITALS: BMI 19.5
[2022-11-01 13:06] VITALS: BP 149/70; PULSE 81; RESP 17
--- NOTE | 2022-11-06 11:26 | P.PN ---
Subjective Progress Note Date: 11/01/22 Principal diagnosis: Cavitatory lung lesion/MYESHA Patient is 87-year-old female with a past medical history significant for COPD hypertension hyperlipidemia pulmonary fibrosis and this patient also have a history of right lower lobe cavitary lesion for the patient did have bronchoscopy done on 12/25/2020 culture subsequently finalized with MYESHA , patient subsequently lost for follow-up with his evaluation in the hospital for UTI at that point Daughter has refused CAT scan patient did have CT of the chest completed on 10/26/2022,Which did shows cavitatory lesion with air-fluid level posterior right mid lung condition lung nodules increased lung markings On today's evaluation that is 11/01/2022, the patient remains to be afebrile, the patient is breathing comfortably on room air , the patient denies any chest pain , the patient cough has decreased in intensity not bringing up any sputum no vomiting or diarrhea has been reported Objective - Vital Signs Vital signs: Vital Signs Temp 98.1 F 11/01/22 08:00 Pulse 80 11/01/22 09:03 Resp 15 11/01/22 08:00 BP 150/71 11/01/22 08:00 Pulse Ox 96 11/01/22 08:54 FiO2 Intake & Output 10/31/22 11/01/22 11/01/22 18:59 06:59 18:59 Intake Total 250 Balance 250 Weight 45.5 kg Intake: Oral 250 Other: Voiding Method Toilet Toilet Toilet Diaper Diaper Incontinent Incontinent # Voids 2 1 2 # Bowel Movements 1 - Exam GENERAL DESCRIPTION: An elderly female lying in bed in no distress RESPIRATORY SYSTEM: Unlabored breathing , coarse breath sounds bilaterally HEART: S1 S2 regular rate and rhythm , ABDOMEN: Soft , no tenderness EXTREMITIES: No edema feet - Labs CBC & Chem 7: 11/01/22 07:03 10/31/22 05:55 Labs: Abnormal Lab Results - Last 24 Hours (Table) 11/01/22 Range/Units 07:03 WBC 14.77 H (4.50-10.00) X 10*3/uL MCHC 31.3 L (32.0-37.0) g/dL RDW 16.5 H (11.5-14.5) % Plt Count 477 H (140-440) X 10*3/uL Microbiology - Last 24 Hours (Table) 10/26/22 07:25 Blood Culture - Final Blood No Growth after 144 hours Assessment and Plan (1) Cavitary lesion of lung Status: Acute Code(s): J98.4 - OTHER DISORDERS OF LUNG SNOMED Code(s): 297523579 (2) MYESHA (mycobacterium avium-intracellulare) Status: Acute Code(s): A31.0 - PULMONARY MYCOBACTERIAL INFECTION SNOMED Code(s): 077688493 Plan: 1patient is 87-year-old female with a past medical history sniffing and for right lower lobe cavitary lesion for which the patient did have a bronchoscopy back in 2020 and cultures were positive for MYESHA however the patient was subsequently lost to follow-up and on her last admission to the hospital the patient and daughter did not want any further investigation and she refused CAT scan of the chest which was ordered and per discussion with her she does not wan t any further investigation to be done or any treatment offered as of 10/26/2022 2- patient did have CT of the chest on 10/26/2022 which did shows right mid lung cavitatory lesion with air-fluid level concern for possible abscess however the patient is currently not running any fever did have a normal pro-calcitonin clinically doubt bacterial pneumonia or abscess and more likely dealing with MYESHA infection 3-patient has been tolerating rifampin Zithromax and ethambutol which was started as of 10/28/2022, prescription has been sent to the pharmacy for outpatient medication with a close outpatient follow-up Family the bedside questions and concerns were answered Time with Patient: Less than 30
== END 2022-11-01 13:54 ==
LOC: EC 10:54 → INTOOBSV 16:32 → 3SCARD 16:32 → 5NMEDONC 10-30 17:33 → UNDODISIN 11-01 13:54
PROVIDERS: ADMIT Hospitalist; ATTEND Hospitalist
DX: A31.0 Pulmonary mycobacterial infection (principal); J96.21 Acute and chronic respiratory failure with hypoxia; J96.22 Acute and chronic respiratory failure with hypercapnia; G92.8 Other toxic encephalopathy; E83.52 Hypercalcemia; T50.2X5A Adverse effect of carbonic-anhydrase inhibitors, benzothiadiazides and other diuretics, initial encounter; T45.2X5A Adverse effect of vitamins, initial encounter; J44.9 Chronic obstructive pulmonary disease, unspecified; J98.4 Other disorders of lung; E87.70 Fluid overload, unspecified; E78.5 Hyperlipidemia, unspecified; I10 Essential (primary) hypertension; J84.10 Pulmonary fibrosis, unspecified; E83.42 Hypomagnesemia; D89.2 Hypergammaglobulinemia, unspecified; E87.5 Hyperkalemia; R29.6 Repeated falls; W19.XXXA Unspecified fall, initial encounter; Y92.239 Unspecified place in hospital as the place of occurrence of the external cause; Z77.22 Contact with and (suspected) exposure to environmental tobacco smoke (acute) (chronic); Z99.81 Dependence on supplemental oxygen; Z66 Do not resuscitate; Z79.82 Long term (current) use of aspirin; Z79.51 Long term (current) use of inhaled steroids; Z79.899 Other long term (current) drug therapy; Z88.5 Allergy status to narcotic agent; Z90.49 Acquired absence of other specified parts of digestive tract; Z98.891 History of uterine scar from previous surgery; Z87.440 Personal history of urinary (tract) infections; Z85.51 Personal history of malignant neoplasm of bladder; Z85.238 Personal history of other malignant neoplasm of thymus; Z98.51 Tubal ligation status; Z91.81 History of falling; Z80.9 Family history of malignant neoplasm, unspecified
CPT/HCPCS: 96376 ×5; 96361 ×4; 96365; 96366; 96375 ×2; 99285; 36415; 94640 ×15; 94760 ×6; 93005; 97116; 97530 ×4; 97163; 97166; 83519; 82652; 83880; 80053 ×3; 80048 ×4; 84443; 82310; 82803; 83605; 83735 ×4; 85025 ×4; 85027 ×4; 85610; 85730; 86140; 81003; 87040; 84165; 82306; 83970; 86334; 86335; 83883; 84145; 71045 ×2; 71046; 70450; 71250; G0378 ×9; J0360 ×2; J1940 ×2; J2920 ×3; J2930 ×2; J3475; J7512; 96360